=== PATIENT | male | born 1995 | race Two or more races ===

== ENCOUNTER 2023-10-01 10:24 | Emergency (ER) | payer OTHER, SELFPAY ==
--- NOTE | ~2023-10-01 | CT_ITS ---
EXAMINATION: CT ABDOMEN AND PELVIS WITH CONTRAST CLINICAL INFORMATION: Lower abdominal pain COMPARISON: None available. TECHNIQUE: Multidetector volumetric images were obtained from the superior aspect of the liver through the pubic symphysis following administration 85 mL of Omnipaque 350 intravenous contrast. Sagittal and coronal reformatted images were obtained on the technologist's workstation. Oral contrast: No This CT examination was performed using dose optimization techniques as appropriate, variously including the following: *Automated exposure control *Adjustment of mA and/or kV according to patient size (this includes techniques or standardized protocols for targeted exams where dose is matched to indication/reason for exam; i.e. extremities or head) *Use of iterative reconstruction technique DLP: 882 mGy-cm FINDINGS: LUNG BASES: The visualized lung bases are unremarkable. LIVER, GALLBLADDER, AND BILIARY TREE: The liver is normal in size, shape, and attenuation. No focal hepatic lesion or biliary ductal dilatation is present. The gallbladder is unremarkable with no evidence of radiopaque gallstones, gallbladder wall thickening, or obvious pericholecystic inflammatory changes. PANCREAS: Unremarkable. SPLEEN: Unremarkable. ADRENAL GLANDS: Unremarkable. KIDNEYS AND URETERS: The kidneys are normal in size, shape, and attenuation. No hydronephrosis, hydroureter, or calculi seen. No perinephric stranding. BLADDER: Unremarkable. GASTROINTESTINAL TRACT: There is scattered stool and gas seen throughout the colon without significant distention. There is nonspecific mild mural thickening involving the entire descending colon but no pericolic fat stranding., Question colitis. There is the small bowel loops are normal caliber. Appendix is normal caliber. The stomach is nondistended ABDOMINAL WALL: A small umbilical hernia containing fat is noted. LYMPH NODES: Normal. VASCULAR: Unremarkable. PELVIC VISCERA: The prostate is enlarged without encroachment on the base of the bladder. OSSEOUS STRUCTURES: Unremarkable. CT/CT abdomen pelvis w IV con IMPRESSION: 1. Nonspecific mild mural thickening involving the entire descending colon but no pericolic fat stranding of the setting or the sigmoid colon. Question early colitis.. There is 2. Small umbilical hernia containing fat. Fleischner guidelines were followed.
[2023-10-01 10:39] VITALS: BP 143/87; BP 150/84; PULSE 104; PULSE 110; RESP 20; TEMP 37.5; O2SAT 97; O2SAT 98; BMI 38.0
[2023-10-01 15:48] LABS: MANUAL DIFF FLAG NO
[2023-10-01 15:49] LABS: Basophils Absolute Auto 0.1 X10*3/uL (0.0-0.2); Basophils Percent Auto 0.4 % (0-2); Eosinophils Percent Auto 0.2 % (0-4); Hemoglobin 16.3 g/dl (14.0-18.0); Imm Gran Abs Auto 0.04 X10*3/uL (0.00-0.03); Imm Gran Pct Auto 0.3 % (0.0-0.4); Lymphocytes Absolute Auto 2.1 X10*3/uL (1.2-4.9); Lymphocytes Percent Auto 16.6 % (20-40); Mean Corpuscular HGB Conc 33.3 g/dl (31.0-36.0); Mean Corpuscular Hemoglobin 26.6 pg (27.0-33.0); Mean Corpuscular Volume 79.9 fL (80.0-98.0); Mean Platelet Volume 9.5 fL (9.4-12.4); Monocytes Absolute Auto 0.5 X10*3/uL (0.1-1.2); Monocytes Percent Auto 4.1 % (2-11); Neutrophils Percent Auto 78.4 % (45-73); Platelet Count 513 X10*3/uL (160-400); Red Blood Count 6.13 X10*6/uL (4.60-5.80); Red Cell Distribution Width 13.2 % (11.0-16.0); White Blood Count 12.7 X10*3/uL (4.8-10.8)
[2023-10-01 16:04] LABS: Alanine Aminotransferase 21 U/L (0-40); Albumin Level 4.9 g/dL (3.5-5.0); Alkaline Phosphatase 90 U/L (39-117); Anion Gap 19 (12-20); Aspartate Amino Transferase 15 U/L (5-37); Bilirubin Direct 0.2 mg/dL (0.0-0.5); Bilirubin Total 0.6 mg/dL (0.0-1.0); Blood Urea Nitrogen 10 mg/dL (9-16); Calcium 10.2 mg/dL (8.4-10.2); Carbon Dioxide 22 mmol/L (22-29); Chloride 104 mmol/L (96-108); Creatinine Clr Calc Pharmacy 124.3; Estimated Glomerular Filt Rate > 60; Glucose Random 128 mg/dL (60-115); Lipase 14 U/L (8-78); Magnesium 1.9 mg/dL (1.6-2.6); Potassium 3.5 mmol/L (3.3-5.1); Sodium 141 mmol/L (135-145); Total Protein 8.8 g/dL (6.5-8.0)
[2023-10-01 19:38] VITALS: PULSE 89; RESP 16; O2SAT 99
[2023-10-01 20:02] VITALS: BP 153/93; PULSE 107; RESP 16; O2SAT 95
--- NOTE | 2023-10-01 20:03 | PC.NURSE ---
PA student @ bedside
--- NOTE | 2023-10-01 20:24 | ED.GENADULT ---
HPI - General Adult General Chief complaint: Abdominal Pain Stated complaint: LOW ABD/BACK PAIN PER EMS Time Seen by Provider: 10/01/23 19:58 Source: patient, RN notes reviewed and old records reviewed Mode of arrival: ambulatory Limitations: no limitations History of Present Illness HPI narrative: 27-year-old male with past medical history significant for ulcerative colitis presents for evaluation of abdominal and pelvic pain. Patient reports he is the pain on and off for 3 years He states the pain is also worse ?when I get an erection. ? He reports his pain is lower abdomen that radiates to his rectum and pelvis Currently he is still experiencing the pain which is 8/10 He states he can have the pain 1 day and then it comes back a few months later He denies any testicular swelling, rashes or urethral discharge He reports that he is sexually active Patient reports that he was diagnosed with ulcerative colitis but has not seen a GI doctor in the last 10 years He reports that he had previously been on Humira but stopped taking in 2014 because ?I was doing well so I did not think I needed it anymore. ? Denies any fevers or chills Denies any rectal bleeding Related Data Previous Rx's Medication Instructions Recorded amoxicillin 875 mg-potassium 1 tab PO BID #14 tabs 10/01/23 clavulanate 125 mg tablet prednisone 20 mg tablet 40 mg (2 x 20 mg) PO DAILY #10 tabs 10/01/23 Allergies Allergy/AdvReac Type Severity Reaction Status Date / Time merida [cherries] AdvReac Gastrointestinal Verified 10/01/23 20:07 Upset Review of Systems Constitutional: Constitutional: Denies chills and Denies fever(s) Eyes: Eyes: Denies blurry vision Cardiovascular: Cardiovascular: Denies chest pain and Denies dyspnea Respiratory: Respiratory: Denies cough and Denies dyspnea Gastrointestinal: Gastrointestinal: Reports abdominal pain, Reports GI cramping, Denies nausea and Denies vomiting Genitourinary: Genitourinary: Reports genital pain, Denies dysuria, Denies penile discharge, Denies testicular mass and Reports testicular pain Musculoskeletal: Musculoskeletal: Denies back pain Integumentary/Breasts: Skin/Breast: Denies rash PMFSH Social History Social History Smoked in Last 30 Days: No Use of substances other than those prescribed or required for medical reasons: Yes Substance Use Type: Marijuana Substance Use Frequency: Daily Advance Directives: No Advance Directives Information Provided: No Physical Exam ED Vital Signs: Vital Signs - 24 hr 10/01/23 10:39 10/01/23 19:38 10/01/23 20:02 Temperature 99.5 F Pulse Rate 110 H 89 107 H Respiratory Rate 20 16 16 Blood Pressure 143/87 H 153/93 H Pulse Oximetry 97 99 95 Oxygen Delivery Method Room Air Room Air Room Air 10/01/23 22:00 10/01/23 22:23 Temperature Pulse Rate 91 69 Respiratory Rate 16 18 Blood Pressure 127/77 129/78 Pulse Oximetry 99 Oxygen Delivery Method Room Air BMI result Body Mass Index 38.0 Const General: healthy appearing, comfortable, no acute distress, alert and awake Nutritional Appearance: well nourished Orientation/consciousness: patient oriented x3 HENMT Head: Yes normocephalic and Yes atraumatic Eyes Eyelids: Yes eyelids normal Conjunctivae: conjunctivae normal Sclerae: sclerae normal Corneas: corneas normal Pupils: Equal, round and reactive pupils present EOM: EOMs intact bilaterally Neck Neck: Yes full ROM Resp Effort & Inspection: normal respiratory effort, able to speak in complete sentences and not labored GI Inspection: No distended Palpation (GI): Soft to palpation, not firm, Tenderness to palpation present (GI) (Diffusely tender to lower abdomen and suprapelvic region.), no guarding and not rigid Auscultation: normoactive bowel sounds Male General Exam: Yes normal external exam, No ecchymosis, No edema, No erythema, No hernia, No inguinal lymphadenopathy, No lacerations and No Genital lesions present Penis: uncircumcised, no ecchymosis, not edematous, no swelling and No Genital lesions present Meatus: no meatla discharge Scrotum: not edematous Skin General skin exam: elasticity normal Neuro General: patient oriented x3 Cranial nerves: Yes Equal, round and reactive pupils present and Yes Bilaterally intact EOM present Cognition (Neuro): normal cognition Extrem Other: Moving all extremities well without any obvious deformities Course Reevaluation(s) Reevaluation #1: Patient's CT scan shows mild colitis. This is most likely related to ulcerative colitis, however he has not had a diagnosed flare in over 10 years. There is some concern that he could have a bacterial colitis, we will treat with both prednisone and Augmentin and he will be referred to GI for further evaluation and management Time: 23:04 Medications Administered Discontinued Medications Generic Name Dose Route Start Last Admin Trade Name Saba PRN Reason Stop Dose Admin Sodium Chloride 1,000 mls @ 999 mls/hr 10/01/23 20:30 10/01/23 21:40 Ns IV 10/01/23 21:30 Infused .Q1H1M YADIRA Infusion Iohexol 100 ml 10/01/23 21:15 10/01/23 21:15 Iohexol 350 Mg/Ml 100 Ml Infus..Btl IV 10/01/23 21:16 85 ml ONCE ONE Administration Ketorolac Tromethamine 30 mg 10/01/23 20:24 10/01/23 20:36 Ketorolac Tromethamine 30 Mg/Ml Vial IVPUSH 10/01/23 20:25 30 mg ONCE ONE Administration Medical Decision Making Medical Decision Making [facility] Narrative: Patient reports a diagnosed history of ulcer colitis but is not currently on any preventative medication. He reports he has not been on Humira for the last 8 years and does not currently follow with GI. His symptoms have been going on and off for 3 years. This makes testicular torsion much less likely. His pain is mostly in the suprapubic region as well. Plan for CT scan the abdomen pelvis to rule out acute appendicitis however I feel this is less likely given the history of ulcerative colitis. Differential Diagnosis Differential Diagnoses: The differential diagnosis associated with the presentation includes Ulcerative colitis Acute appendicitis Gonorrhea Chlamydia Lab Data [facility] Lab Attestation statement: I reviewed the patient's lab results. Mild leukocytosis with a slight left shift. No significant anemia. No electrolyte abnormalities. 10/01/23 15:39 10/01/23 15:39 Labs: Lab Results 10/01/23 10/01/23 Range/Units 15:39 22:29 WBC 12.7 H (4.8-10.8) X10*3/uL RBC 6.13 H (4.60-5.80) X10*6/uL Hgb 16.3 (14.0-18.0) g/dl Hct 49.0 (42.0-52.0) % MCV 79.9 L (80.0-98.0) fL MCH 26.6 L (27.0-33.0) pg MCHC 33.3 (31.0-36.0) g/dl RDW 13.2 (11.0-16.0) % Plt Count 513 H (160-400) X10*3/uL MPV 9.5 (9.4-12.4) fL Immature Gran % (Auto) 0.3 (0.0-0.4) % Neut % (Auto) 78.4 H (45-73) % Lymph % (Auto) 16.6 L (20-40) % Knott % (Auto) 4.1 (2-11) % Eos % (Auto) 0.2 (0-4) % Baso % (Auto) 0.4 (0-2) % Lymph # (Auto) 2.1 (1.2-4.9) X10*3/uL Knott # (Auto) 0.5 (0.1-1.2) X10*3/uL Eos # (Auto) 0.0 (0.0-0.4) X10*3/uL Baso # (Auto) 0.1 (0.0-0.2) X10*3/uL Abs Immat Gran (auto) 0.04 H (0.00-0.03) X10*3/uL Absolute Neuts (auto) 10.0 H (2.0-8.3) x10*3/uL Absolute Nucleated RBC 0.000 (0.0-0.012) X10*3/uL Nucleated RBC % (auto) 0.0 (0.0-0.2) /100WBC Sodium 141 (135-145) mmol/L Potassium 3.5 (3.3-5.1) mmol/L Chloride 104 (96-108) mmol/L Carbon Dioxide 22 (22-29) mmol/L Anion Gap 19 (12-20) BUN 10 (9-16) mg/dL Creatinine 1.10 (0.5-1.4) mg/dL Estim Creat Clear Calc 124.3 Estimated GFR > 60 Random Glucose 128 H (60-115) mg/dL Calcium 10.2 (8.4-10.2) mg/dL Magnesium 1.9 (1.6-2.6) mg/dL Total Bilirubin 0.6 (0.0-1.0) mg/dL Direct Bilirubin 0.2 (0.0-0.5) mg/dL AST 15 (5-37) U/L ALT 21 (0-40) U/L Alkaline Phosphatase 90 (39-117) U/L Total Protein 8.8 H (6.5-8.0) g/dL Albumin 4.9 (3.5-5.0) g/dL Lipase 14 (8-78) U/L Urine Color Yellow Urine Appearance Clear Urine pH 6.0 (5.0-9.0) Ur Specific Blue 1.010 (1.005-1.025) Urine Protein Negative (Neg-Trace) mg/dL Urine Glucose (UA) Negative (Negative) mg/dL Urine Ketones Negative (Negative) mg/dL Urine Blood Negative (Negative) Urine Nitrite Negative (Negative) Ur Leukocyte Esterase Negative (Negative) Discharge Plan Discharge Clinical Impression: Colitis Patient Disposition: Home, Self-Care Instructions: Colitis (ED) Additional Instructions: Your workup was significant for colitis on CT scan. This is most likely inflammatory related to ulcerative colitis However we will give you both steroids and antibiotics to treat any infectious process as well It is important that you follow-up with GI. You may call the office of Dr. Mike at the number provided He should be able to help you manage her ulcerative colitis going for Prescriptions: New prednisone 20 mg tablet 40 mg PO DAILY Qty: 10 0RF amoxicillin-pot clavulanate 875-125 mg tablet 1 tab PO BID Qty: 14 0RF
[2023-10-01] MEDS: 0.9 % Sodium Chloride 1,000 ML 999 ML IV (20:36)
[2023-10-01] MEDS: Ketorolac Tromethamine 30 MG/ML VIAL IVPUSH (20:36)
[2023-10-01] MEDS: iohexoL 350 MG/ML 100 ML INFUS..BTL IV (21:15)
[2023-10-01 22:00] VITALS: BP 127/77; PULSE 91; RESP 16
--- NOTE | 2023-10-01 22:13 | PC.NURSE ---
Pt layin in bed, in no apparent distress at this time. Reports 0/10 pain. Mother at bedside. Awaiting CT results.
[2023-10-01 22:23] VITALS: BP 129/78; PULSE 69; RESP 18; O2SAT 99
[2023-10-01 22:44] LABS: Appearance Urine Clear; Color Urine Yellow; Glucose Urine UA Negative (Negative); Leukocyte Esterase Urine Negative (Negative); Nitrite Urine Negative (Negative); Urine Blood Negative (Negative); Urine Ketones Negative (Negative); Urine Protein Negative (Neg-Trace)
[2023-10-02 04:51] LABS: CT PCR NOT DETECTED (Not Detect.); NG PCR NOT DETECTED (Not Detect.)
== END 2023-10-01 23:54 | disposition home or self-care (01) ==
PROVIDERS: Physician Assistant; Physician Assistant Medical; Emergency Provider Internal Medicine
DX: K52.9 Noninfective gastroenteritis and colitis, unspecified (principal); M54.50 Low back pain, unspecified; N48.89 Other specified disorders of penis; R10.30 Lower abdominal pain, unspecified; Z79.899 Other long term (current) drug therapy
CPT/HCPCS: 0353U; 36415; 74177; 80048; 80076; 81003; 83690; 83735; 85025; 96361; 96374; 99284; 99285; J1885; Q9967

== ENCOUNTER 2023-10-09 04:07 | Emergency (ER) | payer MEDICAID, SELFPAY ==
--- NOTE | ~2023-10-09 | CT_ITS ---
EXAMINATION: CT ABDOMEN AND PELVIS WITH CONTRAST CLINICAL INFORMATION: Lower abdominal discomfort. History of ulcerative colitis. COMPARISON: 10/01/2023 TECHNIQUE: Multidetector volumetric images were obtained from the superior aspect of the liver through the pubic symphysis following administration 100 mL of Omnipaque 350 intravenous contrast. Sagittal and coronal reformatted images were obtained on the technologist's workstation. Oral contrast: No This CT examination was performed using dose optimization techniques as appropriate, variously including the following: *Automated exposure control *Adjustment of mA and/or kV according to patient size (this includes techniques or standardized protocols for targeted exams where dose is matched to indication/reason for exam; i.e. extremities or head) *Use of iterative reconstruction technique DLP: 926 mGy-cm FINDINGS: Linear and curvilinear subpleural opacities of atelectasis in dependent aspect of each lower lobe. No basilar consolidation or pleural effusion. Liver has normal size and contour. No focal hepatic lesion or intrahepatic duct dilatation. Gallbladder is unremarkable. Pancreas and spleen are normal. Adrenal glands are normal. Kidneys are normal in size and opacify symmetrically. No renal mass, hydronephrosis or perinephric edema. There has been excretion of contrast into the nondilated collecting systems. No overt nephrolithiasis. The ureters are unremarkable. Urinary bladder is normal. No dilated bowel loops. The appendix is normal. The thickness of bowel ryan appears to be commensurate with the degree of their distention. Those segments of the colon that are better distended with gas have normal wall thickness. Therefore, there is no overt evidence of acute colitis. There is persistent minimal haziness of some of the fat in the left lower pelvis adjacent to the distal sigmoid colon; this could represent minimal inflammation from epiploic appendicitis. There is no fluid collection/abscess in the pelvis. Prostate gland is unremarkable There is subarticular sclerosis at the left sacroiliac joint with presence of a few subchondral cysts and/or old erosions. An asymmetric left-sided sacroiliitis could cause this appearance. Otherwise, the visualized bones are normal. CT/CT abdomen pelvis w IV con IMPRESSION: * No evidence of enteritis, overt colitis or appendicitis. The thickness of bowel ryan appears to be commensurate with the degree of their distention. * An area of minimal haziness of fat in the left lower pelvis is suspected to be from epiploic appendicitis. * No pelvic fluid collection, mass or lymphadenopathy. * Findings suggestive of a mild asymmetric left-sided sacroiliitis, which can occur in patients with a history of inflammatory bowel disease.
[2023-10-09 04:08] VITALS: BP 141/73; BP 180/118; PULSE 102; PULSE 94; RESP 18; TEMP 36.9; O2SAT 100; BMI 37.9
--- NOTE | 2023-10-09 04:32 | ED.ABDPAIN ---
HPI - Abdominal Pain General Chief Complaint: Abdominal Pain Stated Complaint: lower abd/groin pain Time Seen by Provider: 10/09/23 04:11 Source: patient Mode of arrival: EMS History of Present Illness HPI narrative: 27-year-old male who completed a course of antibiotics for 1 week and was last seen here on 10/01, has made no PCP or GI appointments and states that the pain has resumed and he describes a similar pain pattern as documented on his 1st visit with pain going from his rectum to his penis he denies any diarrhea or blood in the stool, denies any fevers or chills. Related Data Previous Rx's Medication Instructions Recorded amoxicillin 875 mg-potassium 1 tab PO BID #14 tabs 10/01/23 clavulanate 125 mg tablet prednisone 20 mg tablet 40 mg (2 x 20 mg) PO DAILY #10 tabs 10/01/23 Allergies Allergy/AdvReac Type Severity Reaction Status Date / Time merida [cherries] AdvReac Gastrointestinal Verified 10/01/23 20:07 Upset Review of Systems Review of Systems Pertinent positives and negatives as stated in HPI PMFSH Past Medical History Source: nursing notes reviewed Onset Date is defined in the Problem List Problems that require an onset date and time if occurred within 24 hrs of arrival to the ED Aortic Dissection and Rupture; Neurologic impairment; Cardiopulmonary Arrest; Endotracheal Intubation; Insertion or Replacement of Mechanical Circulatory Assist Device Social History Social History Smoked in Last 30 Days: No Use of substances other than those prescribed or required for medical reasons: Yes Substance Use Type: Marijuana Substance Use Frequency: Daily Substance Use Frequency Other:: daily Last Used Substance: Days (ago) Advance Directives: No Advance Directives Information Provided: Yes Physical Exam ED Vital Signs: Vital Signs - 24 hr 10/09/23 04:08 Temperature 98.5 F Pulse Rate 94 Respiratory Rate 18 Blood Pressure 141/73 H Pulse Oximetry 100 Oxygen Delivery Method Room Air BMI result Body Mass Index 37.9 VITAL SIGNS: Reviewed. GENERAL: Well developed, well nourished, in no acute distress. HEAD: Normocephalic/atraumatic EYES: PERRLA, EOMI EARS: Ext canals without abnormality NOSE: Nares patent bilateral OROPHARYNX: no oral lesions noted, posterior pharynx clear NECK: Supple, no adenopathy LUNGS: Normal breath sounds. No adventitious sounds or accessory muscle use. SpO2<100> CARDIOVASCULAR: Regular rate and rhythm without noted murmurs ABDOMEN: Soft, non-tender, non-distended with bowel sounds. MUSCULOSKELETAL: No tenderness, deformities, or effusions noted on gross inspection. EXTREMITIES: No cyanosis, clubbing or edema. SKIN: Inspection of the skin reveals no rashes NEUROLOGIC: Alert and oriented x 4. Strength and sensation to light touch were grossly intact x 4. Medical Decision Making Medical Decision Making [facility] Narrative: 27-year-old male with history and clinical presentation, DDX: Colitis, constipation, UTI, renal colic. Patient received Toradol. Reviewed all investigations and hematologic indices are negative for leukocytosis or left shift there is no anemia but there is a noted improved elevation of the platelets. Chemistry indices do not demonstrate an WHITNEY or electrolyte/liver enzyme derangement. Lipase is within normal limits. COVID-19 testing is negative. Signed out to Dr Mares - f/u ESR/CRP - CT scan abd/pelvis Differential Diagnosis Differential Diagnoses: The differential diagnosis associated with the presentation includes Please see the discussion above Admission/Observation Consideration of admission/observation: Escalation of care including admission/observation considered Please see the discussion above Lab Data [facility] Lab Attestation statement: I reviewed the patient's lab results. Please see the discussion above 10/09/23 04:31 10/09/23 04:31 Labs: Lab Results 10/09/23 Range/Units 04:31 WBC 8.2 (4.8-10.8) X10*3/uL RBC 5.65 (4.60-5.80) X10*6/uL Hgb 15.0 (14.0-18.0) g/dl Hct 45.0 (42.0-52.0) % MCV 79.6 L (80.0-98.0) fL MCH 26.5 L (27.0-33.0) pg MCHC 33.3 (31.0-36.0) g/dl RDW 13.0 (11.0-16.0) % Plt Count 410 H (160-400) X10*3/uL MPV 9.5 (9.4-12.4) fL Immature Gran % (Auto) 0.4 (0.0-0.4) % Neut % (Auto) 67.4 (45-73) % Lymph % (Auto) 20.9 (20-40) % Calloway % (Auto) 6.4 (2-11) % Eos % (Auto) 4.4 H (0-4) % Baso % (Auto) 0.5 (0-2) % Lymph # (Auto) 1.7 (1.2-4.9) X10*3/uL Calloway # (Auto) 0.5 (0.1-1.2) X10*3/uL Eos # (Auto) 0.4 (0.0-0.4) X10*3/uL Baso # (Auto) 0.0 (0.0-0.2) X10*3/uL Abs Immat Gran (auto) 0.03 (0.00-0.03) X10*3/uL Absolute Neuts (auto) 5.5 (2.0-8.3) x10*3/uL Absolute Nucleated RBC 0.000 (0.0-0.012) X10*3/uL Nucleated RBC % (auto) 0.0 (0.0-0.2) /100WBC Sodium 142 (135-145) mmol/L Potassium 3.3 (3.3-5.1) mmol/L Chloride 105 (96-108) mmol/L Carbon Dioxide 27 (22-29) mmol/L Anion Gap 13 (12-20) BUN 13 (9-16) mg/dL Creatinine 0.93 (0.5-1.4) mg/dL Estim Creat Clear Calc 146.8 Estimated GFR > 60 Random Glucose 108 (60-115) mg/dL Calcium 9.6 (8.4-10.2) mg/dL Total Bilirubin 0.5 (0.0-1.0) mg/dL AST 17 (5-37) U/L ALT 26 (0-40) U/L Alkaline Phosphatase 66 (39-117) U/L Total Protein 7.8 (6.5-8.0) g/dL Albumin 4.4 (3.5-5.0) g/dL Lipase 20 (8-78) U/L COVID-19 (ZANDRA) Negative (Negative) COVID-19 Clin Com See Note Medications Administered Discontinued Medications Generic Name Dose Route Start Last Admin Trade Name Freq PRN Reason Stop Dose Admin Ketorolac Tromethamine 15 mg 10/09/23 05:54 10/09/23 06:00 Ketorolac Tromethamine 30 Mg/Ml Vial IVPUSH 10/09/23 05:55 15 mg ONCE ONE Administration Discharge Plan Discharge Clinical Impression: Abdominal pain Patient Disposition: Still a Patient Prescriptions: No Action prednisone 20 mg tablet 40 mg PO DAILY Qty: 10 0RF amoxicillin-pot clavulanate 875-125 mg tablet 1 tab PO BID Qty: 14 0RF
[2023-10-09 04:34] LABS: MANUAL DIFF FLAG NO
[2023-10-09 04:35] LABS: Basophils Percent Auto 0.5 % (0-2); Eosinophils Absolute Auto 0.4 X10*3/uL (0.0-0.4); Eosinophils Percent Auto 4.4 % (0-4); Imm Gran Abs Auto 0.03 X10*3/uL (0.00-0.03); Imm Gran Pct Auto 0.4 % (0.0-0.4); Lymphocytes Absolute Auto 1.7 X10*3/uL (1.2-4.9); Lymphocytes Percent Auto 20.9 % (20-40); Mean Corpuscular HGB Conc 33.3 g/dl (31.0-36.0); Mean Corpuscular Hemoglobin 26.5 pg (27.0-33.0); Mean Corpuscular Volume 79.6 fL (80.0-98.0); Mean Platelet Volume 9.5 fL (9.4-12.4); Monocytes Absolute Auto 0.5 X10*3/uL (0.1-1.2); Monocytes Percent Auto 6.4 % (2-11); Neutrophils Absolute Auto 5.5 x10*3/uL (2.0-8.3); Neutrophils Percent Auto 67.4 % (45-73); Platelet Count 410 X10*3/uL (160-400); Red Blood Count 5.65 X10*6/uL (4.60-5.80); White Blood Count 8.2 X10*3/uL (4.8-10.8)
--- NOTE | 2023-10-09 04:41 | PC.NURSE ---
Patient BIBA from home for evaluation of right lower abdominal/groin pain 06/27, patient reports recent visit here at ED for Exacerbations of Colitis, patient was discharged home on oral Amoxicillin and Prednisone. Patient denies nausea/vomiting/diarrhea. Dr. Alba at bedside. 20 G IV line placed into left forearm. Labs drawn and sent to lab for processing. Patient oriented to ED room, call winters placed within patient's reach.
[2023-10-09 04:51] LABS: Alanine Aminotransferase 26 U/L (0-40); Albumin Level 4.4 g/dL (3.5-5.0); Alkaline Phosphatase 66 U/L (39-117); Anion Gap 13 (12-20); Aspartate Amino Transferase 17 U/L (5-37); Bilirubin Total 0.5 mg/dL (0.0-1.0); Blood Urea Nitrogen 13 mg/dL (9-16); Calcium 9.6 mg/dL (8.4-10.2); Carbon Dioxide 27 mmol/L (22-29); Chloride 105 mmol/L (96-108); Creatinine Clr Calc Pharmacy 146.8; Estimated Glomerular Filt Rate > 60; Glucose Random 108 mg/dL (60-115); Lipase 20 U/L (8-78); Potassium 3.3 mmol/L (3.3-5.1); Sodium 142 mmol/L (135-145); Total Protein 7.8 g/dL (6.5-8.0)
[2023-10-09 04:57] LABS: COVID-19 Test Negative (Negative); IDNOW Serial# 152EDE1D
[2023-10-09] MEDS: Ketorolac Tromethamine 30 MG/ML VIAL 15 MG IVPUSH (06:00)
--- NOTE | 2023-10-09 06:05 | PC.NURSE ---
Patient medicated with Toradol 15 mg IV push for severe abdominal pain in right abdomen/groin/anus. Patient's mother at bedside, call winters at patient's reach.
[2023-10-09] MEDS: iohexoL 350 MG/ML 100 ML INFUS..BTL IV (06:25)
[2023-10-09 06:36] LABS: C Reactive Protein 0.57 mg/dL (< or = 0.50)
[2023-10-09 07:14] LABS: Appearance Urine Clear; Color Urine Yellow; Glucose Urine UA Negative (Negative); Leukocyte Esterase Urine Negative (Negative); Nitrite Urine Negative (Negative); PH 6.5 (5.0-9.0); Specific Gravity - Urine >= 1.030 (1.005-1.025); Urine Blood Negative (Negative); Urine Ketones 15 mg/dL (Negative); Urine Protein Negative (Neg-Trace)
[2023-10-09 07:19] LABS: Erythrocyte Sedimentation Rate 6 MM/HR (0-15)
--- NOTE | 2023-10-09 07:20 | PC.NURSE ---
Resumed care of patient, UA sent to lab. Mom remains at bedside. Awaiting CT results at this time for dispo
== END 2023-10-09 09:43 | disposition home or self-care (01) ==
PROVIDERS: Student in an Organized Health Care Education/Training Program; Emergency Provider Emergency Medicine
DX: R10.30 Lower abdominal pain, unspecified (principal); Z11.52 Encounter for screening for COVID-19
CPT/HCPCS: 36415; 74177; 80053; 81003; 83690; 85025; 85652; 86140; 87635; 96374; 99284; 99285; J1885; Q9967

== ENCOUNTER 2023-10-11 16:57 | Inpatient (IN) | payer OTHER, SELFPAY ==
--- NOTE | ~2023-10-11 | MR_ITS ---
EXAMINATION: MRI PELVIS WITH AND WITHOUT CONTRAST CLINICAL INFORMATION: Reason for Exam rectal pain COMPARISON: CT abdomen and pelvis 10/09/2023 TECHNIQUE: Multiple routine MRI sequences through the pelvis were obtained on a high-field 1.5 Katie MRI before and after the uneventful administration of 10 mL of Gadavist gadolinium-based IV contrast. FINDINGS: SOFT TISSUES: Unremarkable. GI TRACT: Unremarkable. No perirectal or perianal abscess. No evidence of fistula. The previously seen subtle fat stranding in the pelvis abutting the rectosigmoid colon suggestive of epiploic appendicitis was no longer definitively discerned and may be intervally resolved or suboptimally evaluated given differences in modality. PROSTATE AND SEMINAL VESICLES: Unremarkable BLADDER: Urinary bladder normal. PELVIC FREE FLUID: Trace free fluid in the pelvis. VASCULATURE: Unremarkable. LYMPH NODES: No pathologically enlarged lymph nodes. OSSEOUS STRUCTURES: Again seen asymmetric sclerosis along the left sacroiliac joint which can be seen in the setting of sacroiliitis. MR/MR pelvis wo/w con IMPRESSION: 1. No perirectal or perianal abscess. No evidence of fistula. The previously seen subtle fat stranding in the pelvis abutting the rectosigmoid colon suggestive of epiploic appendicitis was no longer definitively discerned and may be intervally resolved or suboptimally evaluated given differences in modality. 2. Again seen asymmetric sclerosis along the left sacroiliac joint which can be seen in the setting of sacroiliitis.
[2023-10-11 17:08] VITALS: BP 139/79; BP 162/84; PULSE 108; PULSE 109; RESP 18; TEMP 37.7; O2SAT 98; O2SAT 99; BMI 37.2
--- NOTE | 2023-10-11 17:08 | PC.NURSE ---
a&ox4. vss and up to date besides being tachycardic. pt presents to the ED after having constant abd pain/n/v x 2 weeks. pt was seen at [facility] [place]09 where he was dx w/ colitis. pt was then seen at [facility] on 10/10 where they d/c'd his morphine subscription. pt tearful/agitated d/t pain. no sob/wob noted. respirations even and unlabored. mother bedside. call winters placed within reach.
--- NOTE | 2023-10-11 17:48 | PC.NURSE ---
MILKA Choi and MILKA ratliff went into room to access patient. patient's mother became verbally aggressive towards [facility] staff stating she is refusing for her son to be cared for two people and only wants her son to be seen by MD in ED. pt's mother now upset that her son is not being seen at this time. pt remains tearful/in pain. respirations remain even and unlabored. call winters placed within reach.
--- NOTE | 2023-10-11 18:07 | ED.ABDPAIN ---
HPI - Abdominal Pain General Chief Complaint: Abdominal Pain Stated Complaint: ABD PAIN Time Seen by Provider: 10/11/23 17:06 Source: patient and family Mode of arrival: EMS Limitations: no limitations History of Present Illness HPI narrative: 27-year-old male with a history of ulcerative colitis who presents emergency department for evaluation of 2 weeks of abdominal pain. Patient states he feels the pain in his rectal area and in his lower abdomen. He states the pain is a constant, sharp pain with a tightness. He states the pain is 10/10. Patient has had associated nausea and has had 3-4 episodes of vomiting per day associated with his abdominal pain. Any time he tries to eat or drink he vomits. The patient states that he was diagnosed with ulcerative colitis when he was in high school and at that time his symptoms were diarrhea without abdominal pain. He states he was on Humira for approximately 4 years and since that time he has not seen a jigger operator. The patient was seen here in the emergency department on 10/01/2023. [place] [address]. He had a CT scan of the abdomen pelvis with IV contrast which revealed mild mural thickening of the descending colon. The patient was started on Augmentin 875/125 twice a day for 7 days and prednisone 40 mg once a day for 5 days with no improvement of his symptoms. The patient was seen again in the emergency department on 10/09/2023. He states that his pain did not resolved despite completing the antibiotics in the prednisone. The patient's laboratory evaluation from this visit revealed a normal WBC of 8200, CRP was 0.52 and ESR was 6. CT scan of the abdomen pelvis with IV contrast reading was as follows: FINDINGS: ... No dilated bowel loops. The appendix is normal. The thickness of bowel ryan appears to be commensurate with the degree of their distention. Those segments of the colon that are better distended with gas have normal wall thickness. Therefore, there is no overt evidence of acute colitis. There is persistent minimal haziness of some of the fat in the left lower pelvis adjacent to the distal sigmoid colon; this could represent minimal inflammation from epiploic appendicitis. There is no fluid collection/abscess in the pelvis. IMPRESSION: * No evidence of enteritis, overt colitis or appendicitis. The thickness of bowel ryan appears to be commensurate with the degree of their distention. * An area of minimal haziness of fat in the left lower pelvis is suspected to be from epiploic appendicitis. * No pelvic fluid collection, mass or lymphadenopathy. * Findings suggestive of a mild asymmetric left-sided sacroiliitis, which can occur in patients with a history of inflammatory bowel disease. Dictated By: Dilip Lawrence MD Related Data Previous Rx's Medication Instructions Recorded amoxicillin 875 mg-potassium 1 tab PO BID #14 tabs 10/01/23 clavulanate 125 mg tablet prednisone 20 mg tablet 40 mg (2 x 20 mg) PO DAILY #10 tabs 10/01/23 amoxicillin 875 mg-potassium 1 tab PO BID #14 tabs 10/09/23 clavulanate 125 mg tablet hyoscyamine sulfate 0.125 mg 0.25 mg (2 x 0.125 mg) PO QID PRN 10/09/23 tablet (Levsin) abdominal pain #10 tabs phenylephrine 0.25 %-shark maureen.oil 1 supp IN BID #12 ea 10/09/23 3 %-cocoa butter rectal suppository (Hemorrhoidal) Allergies Allergy/AdvReac Type Severity Reaction Status Date / Time merida [cherries] AdvReac Gastrointestinal Verified 10/11/23 17:08 Upset Review of Systems Review of Systems Yes all other systems are reviewed and are negative [facility] Past Medical History [facility] Narrative: Past medical history: Ulcerative colitis. Social history: Patient denies tobacco use. He denies alcohol use. He smokes 2-3 joints of marijuana daily. Social History Social History Smoked in Last 30 Days: No Use of substances other than those prescribed or required for medical reasons: No Substance Use Type: Marijuana Advance Directives: No Advance Directives Information Provided: No Physical Exam ED Vital Signs: Vital Signs - 24 hr 10/11/23 17:08 Temperature 99.8 F Pulse Rate 109 H Respiratory Rate 18 Blood Pressure 139/79 Pulse Oximetry 99 Oxygen Delivery Method Room Air BMI result Body Mass Index 37.2 Vital signs were normal Exam General: Awake, alert , patient is tear secondary to his abdominal pain Head: Normocephalic, atraumatic EENT: PERRL, Lids normal, sclera normal, conjunctiva normal, nose normal , ears normal, throat without erythema or exudates Neck: Supple, no adenopathy, no trachea midline or C-spine tenderness Lung: breath sounds symmetric, no wheezing, rales or rhonchi Chest: symmetric movement, nontender Heart: regular rate and rhythm, normal S1, S2 no murmurs or rubs Abdomen: Obese, patient has diffuse moderate to severe tenderness with significant voluntary guarding exam is limited secondary to the patient's pain Back: Patient has severe pain in his abdomen when he sits up and is unable to sit for a period of time to examine his back Extremities: no deformities, moves all extremities symmetrically Neuro: Awake, alert, oriented, normal speech, cranial nerves intact, moves all extremities symmetrically Psych: Pleasant, cooperative Medical Decision Making Medical Decision Making MDM Narrative: 27-year-old male with a history of ulcerative colitis diagnosed 10 years prior, completed 4 years of Humira but has not been seen by GI doctor since stopping Humira (initial presentation was diarrhea and not abdominal pain) who presents emergency department for evaluation of 2 weeks of constant, sharp, lower abdominal pain with pain in his rectal area. Patient has had no diarrhea but he has had 2-3 episodes of vomiting per day. The patient had 2 visits the emergency department here on 10/01/2023-diagnosed with colitis and treated with Augmentin x7 days and prednisone x4 days with no improvement of symptoms. Again seen here on 10/09/2023 for abdominal pain, repeat CT scan was not consistent with colitis but may have been consistent with left lower epiploic appendagitis and mild left sacroiliitis. Patient states he has had constant pain and was seen yesterday at [facility], he did not have a repeat CT scan of the abdomen but was treated with morphine and discharged home without narcotic pain medications. Patient's vital signs were normal. The patient appeared to to be in significant distress secondary to his abdominal pain and his abdominal exam was difficult since he had severe diffuse tenderness with significant anterior guarding. Following laboratory evaluation was ordered: CBC, CMP, ESR, CRP lipase, CK, PT/INR, PTT, COVID-19, influenza, cardiac monitoring, IV insertion, pulse ox monitoring Patient was treated with the following: Morphine 4 mg IV, Zofran 4 mg IV and normal saline x1 L Differential diagnosis includes but is not limited to cyclic vomiting syndrome, colitis, epiploic appendagitis, pancreatitis, ulcerative colitis 20:27 Patient got only minimal improvement with the above treatment, he was given a 2nd dose of morphine 4 mg IV and droperidol 1.25 mg IV. My interpretation patient's laboratory evaluation as follows: WBC elevated 14,000, H&H normal. ESR was normal at 7. Coags normal. Chemistries were normal. CRP was elevated at 1.24. LFTs and lipase were normal. COVID-19, influenza were negative. Given this workup I suspect that the patient's symptoms are more consistent with cyclic vomiting syndrome caused by marijuana use. Given the fact that this is his 4th ER visit, he has had 2 weeks of abdominal pain and not able to hold down any food or fluid I do not think that he can be sent home and that he should be admitted for further management of his symptoms until he can eat and drink without vomiting. Patient has only minimal improvement after the 1st dose of morphine. Patient had significant improvement after receiving morphine 4 mg and droperidol 1.25 mg IV which again suggests that the patient's symptoms may be secondary to cannabis hyperemesis/ cyclic vomiting syndrome I did discuss the patient's presentation over tiger text with the covering hospitalist. Differential Diagnosis Differential Diagnoses: The differential diagnosis associated with the presentation includes Admission/Observation Consideration of admission/observation: Escalation of care including admission/observation considered Lab Data MDM Lab Attestation statement: I reviewed the patient's lab results. 10/11/23 18:34 10/11/23 18:34 Labs: Lab Results 10/11/23 10/11/23 Range/Units 18:33 18:34 WBC 14.0 H (4.8-10.8) X10*3/uL RBC 5.24 (4.60-5.80) X10*6/uL Hgb 13.9 L (14.0-18.0) g/dl Hct 42.2 (42.0-52.0) % MCV 80.5 (80.0-98.0) fL MCH 26.5 L (27.0-33.0) pg MCHC 32.9 (31.0-36.0) g/dl RDW 13.5 (11.0-16.0) % Plt Count 391 (160-400) X10*3/uL MPV 10.0 (9.4-12.4) fL Immature Gran % (Auto) 0.9 H (0.0-0.4) % Neut % (Auto) 80.8 H (45-73) % Lymph % (Auto) 6.1 L (20-40) % [place] % (Auto) 8.7 (2-11) % Eos % (Auto) 3.0 (0-4) % Baso % (Auto) 0.5 (0-2) % Lymph # (Auto) 0.9 L (1.2-4.9) X10*3/uL [place] # (Auto) 1.2 (0.1-1.2) X10*3/uL Eos # (Auto) 0.4 (0.0-0.4) X10*3/uL Baso # (Auto) 0.1 (0.0-0.2) X10*3/uL Abs Immat Gran (auto) 0.12 H (0.00-0.03) X10*3/uL Absolute Neuts (auto) 11.3 H (2.0-8.3) x10*3/uL Absolute Nucleated RBC 0.000 (0.0-0.012) X10*3/uL Nucleated RBC % (auto) 0.0 (0.0-0.2) /100WBC ESR 7 (0-15) MM/HR PT 14.1 H (11.1-13.3) SEC INR 1.2 H (0.9-1.1) APTT 31.2 (26.0-36.4) SEC Sodium 141 (135-145) mmol/L Potassium 3.3 (3.3-5.1) mmol/L Chloride 105 (96-108) mmol/L Carbon Dioxide 25 (22-29) mmol/L Anion Gap 14 (12-20) BUN 10 (9-16) mg/dL Creatinine 0.89 (0.5-1.4) mg/dL Estim Creat Clear Calc 152.0 Estimated GFR > 60 Random Glucose 102 (60-115) mg/dL Calcium 9.8 (8.4-10.2) mg/dL Total Bilirubin 0.5 (0.0-1.0) mg/dL AST 19 (5-37) U/L ALT 24 (0-40) U/L Alkaline Phosphatase 67 (39-117) U/L Total Creatine Kinase 128 (38-174) U/L C-Reactive Protein 1.24 H (< or = 0.50) mg/dL Total Protein 7.2 (6.5-8.0) g/dL Albumin 4.3 (3.5-5.0) g/dL Lipase 9 (8-78) U/L COVID-19 (ZANDRA) Negative (Negative) COVID-19 Clin Com See Note Influenza Type A (RUI) Negative (Negative) Influenza Type B (RUI) Negative (Negative) Influenza A & B Note See Note Independent Historian Clinical information obtained from an independent historian. History obtained from or confirmed by: Parent Medications Administered Discontinued Medications Generic Name Dose Route Start Last Admin Trade Name Freq PRN Reason Stop Dose Admin Droperidol 1.25 mg 10/11/23 19:08 10/11/23 19:33 Droperidol 5 Mg/2 Ml Vial IVPUSH 10/11/23 19:09 1.25 mg ONCE ONE Administration Sodium Chloride 1,000 mls @ 999 mls/hr 10/11/23 18:08 10/11/23 18:34 Ns IV 10/11/23 19:08 999 mls/hr .Q1H1M STA Administration Morphine Sulfate 4 mg 10/11/23 18:08 10/11/23 18:34 Morphine Sulfate 4 Mg/Ml Cartridge IVPUSH 10/11/23 18:09 4 mg ONCE STA Administration Protocol Morphine Sulfate 4 mg 10/11/23 19:08 10/11/23 19:34 Morphine Sulfate 4 Mg/Ml Cartridge IVPUSH 10/11/23 19:09 4 mg ONCE STA Administration Protocol Ondansetron HCl 4 mg 10/11/23 18:08 10/11/23 18:34 Ondansetron Hcl 4 Mg/2 Ml Vial IVPUSH 10/11/23 18:09 4 mg ONCE ONE Administration Discharge Plan Discharge Prescriptions: No Action amoxicillin-pot clavulanate 875-125 mg tablet 1 tab PO BID Qty: 14 0RF hyoscyamine sulfate [Levsin] 0.125 mg tablet 0.25 mg PO QID PRN (Reason: abdominal pain) Qty: 10 0RF Hemorrhoidal 0.25-3 % suppository 1 supp IN BID Qty: 12 0RF prednisone 20 mg tablet 40 mg PO DAILY Qty: 10 0RF amoxicillin-pot clavulanate 875-125 mg tablet 1 tab PO BID Qty: 14 0RF
[2023-10-11] MEDS: ondansetron HCL 4 MG/2 ML VIAL IVPUSH (18:34)
[2023-10-11] MEDS: Morphine Sulfate 4 MG/ML CARTRIDGE IVPUSH ×3 (18:34→21:36)
[2023-10-11] MEDS: 0.9 % Sodium Chloride 1,000 ML 999 ML IV (18:34)
[2023-10-11 18:45] LABS: MANUAL DIFF FLAG NO
[2023-10-11 18:55] LABS: INTERNATIONAL NORM RATIO 1.2 (0.9-1.1); Prothrombin Time 14.1 SEC (11.1-13.3)
[2023-10-11 18:58] LABS: Partial Thromboplastin Time 31.2 SEC (26.0-36.4)
[2023-10-11 19:03] LABS: COVID-19 Test Negative (Negative); IDNOW Serial# 16C4AD1C; IDNOW Serial# 55D5AD1C; Influenza A Negative (Negative); Influenza B2 Negative (Negative)
[2023-10-11 19:05] LABS: Alanine Aminotransferase 24 U/L (0-40); Albumin Level 4.3 g/dL (3.5-5.0); Alkaline Phosphatase 67 U/L (39-117); Anion Gap 14 (12-20); Aspartate Amino Transferase 19 U/L (5-37); Bilirubin Total 0.5 mg/dL (0.0-1.0); Blood Urea Nitrogen 10 mg/dL (9-16); C Reactive Protein 1.24 mg/dL (< or = 0.50); Calcium 9.8 mg/dL (8.4-10.2); Carbon Dioxide 25 mmol/L (22-29); Chloride 105 mmol/L (96-108); Estimated Glomerular Filt Rate > 60; Glucose Random 102 mg/dL (60-115); Lipase 9 U/L (8-78); Potassium 3.3 mmol/L (3.3-5.1); Sodium 141 mmol/L (135-145); Total Protein 7.2 g/dL (6.5-8.0)
[2023-10-11 19:12] LABS: Basophils Absolute Auto 0.1 X10*3/uL (0.0-0.2); Basophils Percent Auto 0.5 % (0-2); Eosinophils Absolute Auto 0.4 X10*3/uL (0.0-0.4); Hematocrit 42.2 % (42.0-52.0); Hemoglobin 13.9 g/dl (14.0-18.0); Imm Gran Abs Auto 0.12 X10*3/uL (0.00-0.03); Imm Gran Pct Auto 0.9 % (0.0-0.4); Lymphocytes Absolute Auto 0.9 X10*3/uL (1.2-4.9); Lymphocytes Percent Auto 6.1 % (20-40); Mean Corpuscular HGB Conc 32.9 g/dl (31.0-36.0); Mean Corpuscular Hemoglobin 26.5 pg (27.0-33.0); Mean Corpuscular Volume 80.5 fL (80.0-98.0); Monocytes Absolute Auto 1.2 X10*3/uL (0.1-1.2); Monocytes Percent Auto 8.7 % (2-11); Neutrophils Absolute Auto 11.3 x10*3/uL (2.0-8.3); Neutrophils Percent Auto 80.8 % (45-73); Platelet Count 391 X10*3/uL (160-400); Red Blood Count 5.24 X10*6/uL (4.60-5.80); Red Cell Distribution Width 13.5 % (11.0-16.0)
[2023-10-11] MEDS: droPERidol 5 MG/2 ML VIAL 1.25 MG IVPUSH ×2 (19:33→23:56)
[2023-10-11 19:40] LABS: Erythrocyte Sedimentation Rate 7 MM/HR (0-15)
[2023-10-11 20:43] VITALS: BP 126/59; PULSE 97; RESP 18; TEMP 36.8; O2SAT 99
--- NOTE | 2023-10-11 21:40 | PHA.MEDREC ---
Pharmacy Consult ? Medication Reconciliation Pharmacy has completed the medication reconciliation.Patients mother confirmed medications. Could not tell me how many days left of scripts. Patient potentially stopped antibiotic early believing it wasn't working. Unable to confirm. Jelena Joe CPhT
[2023-10-11 21:51] LABS: Appearance Urine Clear; Color Urine Yellow; Glucose Urine UA Negative (Negative); Leukocyte Esterase Urine Negative (Negative); Nitrite Urine Negative (Negative); Specific Gravity - Urine 1.025 (1.005-1.025); Urine Blood Negative (Negative); Urine Ketones >=160 mg/dL (Negative); Urine Protein Trace mg/dL (Neg-Trace)
--- NOTE | 2023-10-11 22:03 | PC.NURSE ---
pt reporting 6/10 pain in thr abdomen at this time, pt medicated per nov.
[2023-10-11 22:11] LABS: Bacteria Urine None Seen (None Seen); Granular Casts Urine Present; RBC Urine 0-2 /HPF (0-2); WBC Urine 0-5 /HPF (0-5)
--- NOTE | 2023-10-11 22:21 | P.HPHOSP_ITS ---
History of Present Illness Date of Service: 10/11/23 Attending physician on admission: Danny Alford Chief Complaint: Abdominal pain, N/V CPatient has a history of ulcerative colitis that was diagnosed over 10 years ago when he was still in high school. Patient states that he was originally on Humira for a few years, though stopped taking it in 2013. Patient reports he used to get bloody diarrhea without abdominal pain when he had UC flares prior to being placed on Humira. Last flare was ?many years ago? while patient was in high school. Patient states that current symptoms began around his anus, and felt like there was class in his bowels or that he was being stabbed with knives. Pain eventually migrated to his scrotal and genital area and then up into his lower abdomen. Patient denies diarrhea, but states he has had small bowel movements during this time. Has not been eating much during this time given abdominal pain, though denies any nausea or vomiting until this morning when he had 2 episodes at work and another 2 episodes at home. Patient has presented multiple times in the past 10 days to the ED here and at [facility]. Patient initially presented on 10/01 at the ED here where CT of abdomen and pelvis on 10/01/2023 found nonspecific mild mural thickening involving the entire descending colon but with no pericolonic fat, question of early colitis. Patient was then discharged home on Augmentin and prednisone x7 days. Patient states he took medication as prescribed but had no relief of symptoms. He represented to the ED on 10/09 with similar symptoms and had repeat CT of abd/pelvis which showed no evidence of enteritis, overt colitis, or appendicitis. Reported the thickness of bowel ryan appears to be commensurate with the degree of their distention. Did find an area of minimal haziness of fat in the left lower pelvis suspected to be from epiploic appendagitis. Also found possible mild asymmetric left-sided sacroiliitis. Antibiotics were continued for an additional 7 days but symptoms persisted. Patient then presented to [facility] ED yesterday on 10/10 where they did not repeat a CT scan of his abdomen, but he was treated with morphine and then discharged home on NSAIDs. Abdominal pain persisted today, and when he developed nausea and vomiting x4 episodes patient re-presented to the emergency room. Patient has a history of marijuana use, stating he usually smokes 2 joints daily, though has not smoked for 4+ weeks since he has been out of money. In the ED pt was afebrile but tachycardic up to 109, with soft BP of 126/59. Labs were significant for leukocytosis of 14.0 and C-reactive protein of 1.24, otherwise grossly unremarkable. Stable H&H. ESR WNL at 7. Coags unremarkable. No electrolyte abnormalities. Renal and hepatic function WNL. UA negative for UTI. Tested negative for COVID and influenza type a and B. Pt was treated with IVF, morphine, ondansetron, and droperidol. Pt will be admitted to the hospital for treatment and further evaluation of intractable abdominal pain with nausea and vomiting likely secondary to epiploic appendagitis. Review of Systems 2 Review of Systems: Lower abdominal and gu pain x2 weeks nausea, vomiting x1 day Anorexia x2 weeks Denies diarrhea No chest pain/pressure, palpitations Denies shortness of breath Fever, chills, headache PMFSH Social History Smoked in Last 30 Days: No Use of substances other than those prescribed or required for medical reasons: No Substance Use Type: Marijuana Advance Directives: No Advance Directives Information Provided: No Meds Allergies Allergy/AdvReac Type Severity Reaction Status Date / Time merida [cherries] AdvReac Gastrointestinal Verified 10/11/23 17:08 Upset Home Medications Medication Instructions Recorded Confirmed Last Taken Type acetaminophen 325 mg tablet 650 mg PO Q4H PRN Pain 10/11/23 10/11/23 Unknown History ibuprofen 600 mg tablet 600 mg PO Q6H PRN Pain 10/11/23 10/11/23 Unknown History Physical Exam 2 Vital Signs and Narrative: Vital Signs: Last Vital Signs Temp 98.3 F 10/11/23 20:43 Pulse 97 10/11/23 20:43 Resp 18 10/11/23 20:43 BP 126/59 L 10/11/23 20:43 Pulse Ox 99 10/11/23 20:43 O2 Del Method Room Air 10/11/23 20:43 BMI result Body Mass Index 37.2 Constitutional: Alert, in no acute distress. Mental Status: Oriented to person, place and time. Eyes: Pupils are equal, round, and reactive to light. Ear, Nose, and Throat: Oropharynx clear, mucous membranes moist. Ears and nose without deformities. Trachea midline. Respiratory: Clear to auscultation bilaterally. No wheezing, rales, or rhonchi. Cardiovascular: S1, S2 regular. No murmurs, rubs, or gallops. Gastrointestinal: Abdomen soft, non-distended, diffuse lower abdominal tenderness. Normal bowel sounds. Neurologic: Cranial nerves II-XII are grossly intact bilaterally. No focal neurological deficits. Moves all extremities spontaneously. Skin: Warm, dry. Musculoskeletal: No cyanosis or clubbing. Extremities: No edema. Psychiatric: Normal mood and affect. Results Labs 10/11/23 18:34 10/11/23 18:34 Labs: Laboratory Results - last 24 hr 10/11/23 10/11/23 10/11/23 18:33 18:34 21:39 MCV 80.5 MCH 26.5 L MCHC 32.9 RDW 13.5 Plt Count 391 MPV 10.0 Immature Gran % (Auto) 0.9 H Neut % (Auto) 80.8 H Lymph % (Auto) 6.1 L [place] % (Auto) 8.7 Eos % (Auto) 3.0 Baso % (Auto) 0.5 Lymph # (Auto) 0.9 L [place] # (Auto) 1.2 Eos # (Auto) 0.4 Baso # (Auto) 0.1 Abs Immat Gran (auto) 0.12 H Absolute Neuts (auto) 11.3 H Absolute Nucleated RBC 0.000 Nucleated RBC % (auto) 0.0 ESR 7 PT 14.1 H INR 1.2 H APTT 31.2 Anion Gap 14 Estim Creat Clear Calc 152.0 Estimated GFR > 60 Random Glucose 102 Calcium 9.8 Total Bilirubin 0.5 AST 19 ALT 24 Alkaline Phosphatase 67 Total Creatine Kinase 128 C-Reactive Protein 1.24 H Total Protein 7.2 Albumin 4.3 Lipase 9 Urine Color Yellow Urine Appearance Clear Urine pH 6.0 Ur Specific [place] 1.025 Urine Protein Trace Urine Glucose (UA) Negative Urine Ketones >=160 Urine Blood Negative Urine Nitrite Negative Ur Leukocyte Esterase Negative Urine RBC 0-2 Urine WBC 0-5 Ur Squamous Epith Cells 3-5 Urine Bacteria None Seen Hyaline Casts 11-20 Granular Casts Present COVID-19 (ZANDRA) Negative COVID-19 Clin Com See Note Influenza Type A (RUI) Negative Influenza Type B (RUI) Negative Influenza A & B Note See Note Assessment and Plan (1) Abdominal pain: Status: Acute Plan Pt is a 27-year-old male with a PMH significant for ulcerative colitis who presents to the ED with?intractable lower abdominal pain x2 weeks and nausea and vomiting x1 week. Pt will be admitted to the hospital for treatment and further evaluation of intractable abdominal pain with nausea and vomiting likely secondary to epiploic appendagitis. Abdominal pain Pt with lower abdominal pain x2 weeks, nausea and vomiting since today Has been having regular small bowel movements Was seen in our ED on 10/01 and 10/09, and at [facility] ED yesterday on 10/10 Unclear etiology: CT with evidence of epiploic appendagitis, UC flare versus gastroparesis versus gastroenteritis vs cyclic vomiting syndrome less likely Patient has been treated with Augmentin and prednisone to no effect Will treat with ketorolac 15 mg IV Q6 x2 doses, morphine p.r.n., Reglan q8h carmita, ondansetron p.r.n. Place on maintenance IVF Clear liquid diet for now, advance as tolerated GI consult Pt otherwise has no other acute medical complaints or chronic medical conditions. Full Code Attending:?Dr. Aden DVT Prophylaxis: Lovenox Pt will require a hospitalization of at least two nights for treatment of?severe abdominal pain likely secondary to epiploic appendagitis. Given that this is the pt's fourth presentation to the ED in the past ten days and has been unable to tolerate p.o. intake, he will require in patient hospitalized care to further evaluate and treat his intractable abdominal pain. Quality Stroke Does the patient have a stroke diagnosis?: No VTE Prior VTE?: No VTE Risk Level:: Medical - moderate - high VTE Device Contraindication: Treatment Not Indicated VTE Drug Contraindication: N/A - Med Ordered
[2023-10-11 23:03] VITALS: BP 120/70; PULSE 78; RESP 16; TEMP 36.8; O2SAT 98
[2023-10-11] MEDS: Lactated Ringers 1,000 ML 100 ML IVCONT (23:35)
--- NOTE | 2023-10-11 23:57 | PC.NURSE ---
pt medicated per mar at this time.
[2023-10-12] MEDS: Metoclopramide HCl 10 MG/2 ML VIAL IVPUSH ×2 (00:51→09:48)
--- NOTE | 2023-10-12 00:52 | PC.NURSE ---
pt sleeping at this time, respirations even and unlabored.
--- NOTE | 2023-10-12 01:46 | PC.NURSE ---
pt ambulated to bathroom with steady gait, pt denies pain at this time.
[2023-10-12] MEDS: Morphine Sulfate 4 MG/ML CARTRIDGE IVPUSH ×2 (02:36→09:48)
--- NOTE | 2023-10-12 02:40 | PC.NURSE ---
pt medicated per nov for 8/10 lower abdominal pain and anal pain at this time. respirations even and unlabored.
[2023-10-12 03:36] VITALS: BP 107/53; PULSE 88; RESP 12; TEMP 36.6; O2SAT 98
[2023-10-12] MEDS: Pantoprazole Sodium 40 MG/10 ML VIAL IVPUSH (05:45)
[2023-10-12] MEDS: Ketorolac Tromethamine 15 MG/ML VIAL IVPUSH (05:45)
[2023-10-12 05:46] VITALS: BP 126/62; PULSE 80; RESP 21; TEMP 36.8; O2SAT 97
--- NOTE | 2023-10-12 05:46 | MHC.EDTECH ---
Pt provided with a hospital bed
--- NOTE | 2023-10-12 05:49 | PC.NURSE ---
pt placed in hospital bed at this time for comfort, pt medicated per mar.
--- NOTE | 2023-10-12 07:57 | HO.PM.IMPN ---
Subjective Subjective Date of Service: 10/12/23 Interval History: abd pain Review of Systems similar abd pain intermittent no fever or chills Physical Exam Vital Signs: Vital Signs: Last Vital Signs Temp 98.3 F 10/12/23 05:46 Pulse 80 10/12/23 05:46 Resp 21 H 10/12/23 05:46 BP 126/62 10/12/23 05:46 Pulse Ox 97 10/12/23 05:46 O2 Del Method Room Air 10/12/23 05:46 BMI result Body Mass Index 37.2 Appearance: Alert.? Oriented X3.? cvs: rrr, [id number] , no murmur res: clear to auscultation ,no rhonchii or wheezing abd: no rebound or guarding ,abd pain seems similar, bs present. ext pulses present , no cyanosis . neuro: axo3 , nonfocal. Objective Data Active Medications Acetaminophen (Acetaminophen 325 Mg Tablet) 650 mg PO Q6H PRN PRN Reason: Pain, Mild (Pain Scale 1-3) Benzonatate (Benzonatate 100 Mg Capsule) 100 mg PO TID PRN PRN Reason: Cough Docusate Sodium (Docusate Sodium 100 Mg Capsule) 100 mg PO DAILY PRN PRN Reason: Constipation Enoxaparin Sodium (Enoxaparin Sodium 40 Mg/0.4 Ml Syringe) 40 mg SUBCUT BEDTIME [facility] Last Admin: 10/11/23 23:37 Dose: Not Given Documented By: LENCHO Non-Admin Reason: Patient Refused Lactated Ringer's (Lr) 1,000 mls @ 100 mls/hr IVCONT .Q10H [facility] Last Admin: 10/11/23 23:35 Dose: 100 mls/hr Documented By: LENCHO Melatonin (Melatonin 3 Mg Tablet) 6 mg PO BEDTIME PRN PRN Reason: Insomnia Metoclopramide HCl (Metoclopramide Hcl 10 Mg/2 Ml Vial) 10 mg IVPUSH Q8H [facility] Last Admin: 10/12/23 00:51 Dose: 10 mg Documented By: LENCHO Morphine Sulfate (Morphine Sulfate 4 Mg/Ml Cartridge) 4 mg IVPUSH Q4H PRN; Protocol PRN Reason: Pain, Severe (Pain Scale 7-10) Last Admin: 10/12/23 02:36 Dose: 4 mg Documented By: LENCHO Ondansetron HCl (Ondansetron Hcl 4 Mg/2 Ml Vial) 4 mg IVPUSH Q8H PRN PRN Reason: Nausea and Vomiting Pantoprazole Sodium (Pantoprazole Sodium 40 Mg/10 Ml Vial) 40 mg IVPUSH DAILY@0630 [facility] Last Admin: 10/12/23 05:45 Dose: 40 mg Documented By: LENCHO Sodium Chloride (0.9 % Sodium Chloride Flush 3 Ml Syringe) 3 ml IVFLUSH QSHIFT [facility] Last Admin: 10/12/23 07:08 Dose: Not Given Documented By: PAKO Non-Admin Reason: IV Running Labs 10/11/23 18:34 10/11/23 18:34 Labs: Laboratory Results - last 24 hr 10/11/23 10/11/23 10/11/23 18:33 18:34 21:39 MCV 80.5 MCH 26.5 L MCHC 32.9 RDW 13.5 Plt Count 391 MPV 10.0 Immature Gran % (Auto) 0.9 H Neut % (Auto) 80.8 H Lymph % (Auto) 6.1 L [place] % (Auto) 8.7 Eos % (Auto) 3.0 Baso % (Auto) 0.5 Lymph # (Auto) 0.9 L [place] # (Auto) 1.2 Eos # (Auto) 0.4 Baso # (Auto) 0.1 Abs Immat Gran (auto) 0.12 H Absolute Neuts (auto) 11.3 H Absolute Nucleated RBC 0.000 Nucleated RBC % (auto) 0.0 ESR 7 PT 14.1 H INR 1.2 H APTT 31.2 Anion Gap 14 Estim Creat Clear Calc 152.0 Estimated GFR > 60 Random Glucose 102 Calcium 9.8 Total Bilirubin 0.5 AST 19 ALT 24 Alkaline Phosphatase 67 Total Creatine Kinase 128 C-Reactive Protein 1.24 H Total Protein 7.2 Albumin 4.3 Lipase 9 Urine Color Yellow Urine Appearance Clear Urine pH 6.0 Ur Specific [place] 1.025 Urine Protein Trace Urine Glucose (UA) Negative Urine Ketones >=160 Urine Blood Negative Urine Nitrite Negative Ur Leukocyte Esterase Negative Urine RBC 0-2 Urine WBC 0-5 Ur Squamous Epith Cells 3-5 Urine Bacteria None Seen Hyaline Casts 11-20 Granular Casts Present COVID-19 (ZANDRA) Negative COVID-19 Clin Com See Note Influenza Type A (RUI) Negative Influenza Type B (RUI) Negative Influenza A & B Note See Note Assessment and Plan (1) Abdominal pain: Status: Acute Plan 27-year-old male with a PMH significant for ulcerative colitis who presents to the ED with?intractable lower abdominal pain x2 weeks and nausea and vomiting x1 week. Pt will be admitted to the hospital for treatment and further evaluation of intractable abdominal pain with nausea and vomiting likely secondary to epiploic appendagitis. Abdominal pain Pt with lower abdominal pain x2 weeks, nausea and vomiting since today recent ED on 10/01 and 10/09, and at [facility] ED yesterday on 10/10 CT with evidence of epiploic appendagitis, UC flare versus gastroparesis versus gastroenteritis vs cyclic vomiting syndrome less likely. treated with Augmentin and prednisone to no effect. continue ketorolac 15 mg IV Q6 x2 doses,iv morphine p.r.n., Reglan q8h carmita, ondansetron p.r.n., maintenance IVF Clear liquid diet for now, advance as tolerated GI consult pending ongoing hospitlisation need : for abd pain unclear etiology,multiple recent ed visits ,unable to tolerate diet-need iv hydration, iv pain meds,zofran,expert evaluation for abd pain. Quality Stroke Does the patient have a stroke diagnosis?: No VTE Prior VTE?: No VTE Risk Level:: Medical - moderate - high VTE Device Contraindication: Treatment Not Indicated VTE Drug Contraindication: N/A - Med Ordered
[2023-10-12 08:00] VITALS: BP 141/79; PULSE 90; RESP 16; TEMP 37.4; O2SAT 97
--- NOTE | 2023-10-12 08:04 | PC.NURSE ---
pt tolerated drinking his am juice and eating his pudding and reported that was it
--- NOTE | 2023-10-12 08:35 | PC.NURSE ---
disconnected pt to ambulate to the BR. pt ambulating with mother at side, steady gait. reconnected to IVF upon return to rm pt denies pain at this time. reports no nausea.
--- NOTE | 2023-10-12 08:53 | PHA.MEDREC ---
Pharmacy Consult ? Medication Reconciliation Pharmacy has completed the medication reconciliation. Spoke to patient and confirmed medication list.
[2023-10-12] MEDS: Lactated Ringers 1,000 ML 100 ML IVCONT ×2 (09:49→22:18)
--- NOTE | 2023-10-12 12:04 | PM.EVENT ---
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 Also, recent constipation suggests a component of underlying IBS/C. No evidence of active colitis. Colonoscopy 2 yrs ago neg per pt. Rec: Trial of dicyclomine D/C nilson Educated patient and mother about proctalgia fugax and epiploic appendagitis. No abx or steroid rx indicated. Time Spent With Patient Time: Total time managing care of this patient today ____ minutes.
--- NOTE | 2023-10-12 12:28 | MHC.CM.PN ---
PT REPORTS HE LIVES WITH HIS PARENTS WHO WERE PRESENT AT BEDSIDE PT REPORTS BEING INDEPENDENT WITH ALL CARE, HAVING NO DME AND NO SERVICES PT DOES NOT HAVE A HCP AND DECLINES TO COMPLETE ONE HE REPORTS HIS PCP IS CLARA CHAPMAN DCP: HOME NO SERVICES VIA FAMILY TRANSPORT
[2023-10-12] MEDS: Dicyclomine HCl 10 MG CAPSULE 20 MG PO ×2 (15:59→20:37)
[2023-10-12 16:00] VITALS: BP 132/72; PULSE 80; RESP 18; TEMP 37.4; O2SAT 96
[2023-10-12 19:04] VITALS: BP 127/73; PULSE 90; RESP 18; TEMP 36.9; O2SAT 97
[2023-10-12] MEDS: Enoxaparin Sodium 40 MG/0.4 ML SYRINGE SUBCUT (20:37)
--- NOTE | 2023-10-12 22:45 | CONS_ITS ---
DATE OF SERVICE: 10/12/2023 REFERRING PHYSICIAN: MILKA Bhatia REASON FOR CONSULTATION: Abdominal and rectal pain. HISTORY OF PRESENT ILLNESS: The patient is a pleasant 27-year-old man who was admitted to the hospital because of symptoms of abdominal and rectal pain. He describes a history of colitis diagnosed in 2013, records indicate that he was diagnosed with indeterminate colitis at age 18 in 2013 and treated with various medications including mesalamine, steroids, and Humira, which he stopped taking on his own as he felt better. He reports his last colonoscopy was in [place] approximately 2 years ago and was normal. He reports about 2 weeks of rectal pain radiating into the testicles with bilateral lower quadrant abdominal pain. Symptoms seemed to come in spasms and last for seconds and then resolve. He has tried taking ibuprofen and Tylenol without relief. He has had several emergency room visits for symptoms and has undergone laboratory testing as well as imaging including 2 CAT scans, which are reviewed. CT scanning done on October 09 suggested a diagnosis of epiploic appendagitis. He has actually had some constipation recently and has cut back on his oral intake. He was evaluated in the emergency department again yesterday with laboratory studies showing a slight elevation in his white blood cell count. Of note, he had been treated with a short course of steroids and antibiotics as an outpatient. Chemistries were unremarkable. C-reactive protein was elevated at 1.24 and imaging was not repeated. He has been admitted and is being treated supportively with IV fluids and pain medications as well as antiemetics. He has been tolerating a clear liquid diet. PAST MEDICAL HISTORY: Indeterminate colitis as above. He denies other medical or surgical illnesses. CURRENT MEDICATIONS: His current medication list is reviewed in the chart. ALLERGIES: THERE ARE NO MEDICATION ALLERGIES REPORTED. FAMILY HISTORY: This is negative for inflammatory bowel disease. SOCIAL HISTORY: He denies tobacco and alcohol use. He does use marijuana, but states he has not used this over the past month. REVIEW OF SYSTEMS: SKIN: No pruritus. HEENT: Negative. CARDIOPULMONARY: He denies shortness of breath or chest pain. GASTROINTESTINAL: As above. GENITOURINARY: Negative. NEUROPSYCHIATRIC: Negative. PHYSICAL EXAMINATION: GENERAL: Shows a pleasant male, lying comfortably in bed. VITAL SIGNS: Reviewed in electronic medical record and are stable. SKIN: Shows multiple tattoos. HEENT: Shows no scleral icterus. NECK: Without lymphadenopathy or thyromegaly. LUNGS: Clear. HEART: Shows regular rate and rhythm. S1, S2. No murmur. ABDOMEN: Soft without focal masses or tenderness. Bowel sounds are present. No organomegaly is noted. EXTREMITIES: Without edema. LABORATORY DATA AND IMAGING STUDIES: Reviewed. IMPRESSION: Abdominal and rectal pain. 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 We also discussed the diagnosis of epiploic appendagitis and that it does not require treatment with antibiotics or steroids. He does not seem to have any active evidence of colitis and his recent colonoscopy 2 years ago was reportedly negative. This will be obtained and reviewed. I have recommended a trial of dicyclomine for his symptoms. I would recommend discontinuing metoclopramide because of its adverse side effect profile and potential to make cramping worse. Stool for fecal calprotectin will be of obtained and his diet can be advanced as tolerated. Thanks for asking me to see him. I will follow him in the hospital with you. MD JAVIER Kaiser/OLIVE / [phone]
[2023-10-13] MEDS: Ketorolac Tromethamine 15 MG/ML VIAL IVPUSH (03:12)
[2023-10-13 03:41] VITALS: BP 141/73; PULSE 70; RESP 16; TEMP 36.5; O2SAT 96
[2023-10-13 03:42] VITALS: RESP 18
[2023-10-13] MEDS: Morphine Sulfate 4 MG/ML CARTRIDGE IVPUSH ×2 (05:35→15:16)
[2023-10-13] MEDS: Pantoprazole Sodium 40 MG/10 ML VIAL IVPUSH (05:40)
[2023-10-13 07:15] VITALS: BP 150/77; PULSE 74; RESP 18; TEMP 36.7; O2SAT 100
[2023-10-13] MEDS: Lactated Ringers 1,000 ML 100 ML IVCONT ×2 (07:24→21:13)
[2023-10-13] MEDS: Dicyclomine HCl 10 MG CAPSULE 20 MG PO ×4 (07:25→21:11)
[2023-10-13 08:44] LABS: Hemoglobin 13.7 g/dl (14.0-18.0); Mean Corpuscular HGB Conc 33.4 g/dl (31.0-36.0); Mean Corpuscular Hemoglobin 26.8 pg (27.0-33.0); Mean Corpuscular Volume 80.2 fL (80.0-98.0); Mean Platelet Volume 9.9 fL (9.4-12.4); Platelet Count 348 X10*3/uL (160-400); Red Blood Count 5.11 X10*6/uL (4.60-5.80); Red Cell Distribution Width 13.3 % (11.0-16.0); White Blood Count 7.6 X10*3/uL (4.8-10.8)
--- NOTE | 2023-10-13 09:50 | P.PNIM_ITS ---
Subjective Subjective Date of Service: 10/13/23 Interval History: diarrhae Review of Systems having some dark loose bms no fever abd pain intermittent similar Physical Exam 2 Vital Signs: Vital Signs: Last Vital Signs Temp 98.1 F 10/13/23 07:15 Pulse 74 10/13/23 07:15 Resp 18 10/13/23 07:15 BP 150/77 H 10/13/23 07:15 Pulse Ox 100 10/13/23 07:15 O2 Del Method Room Air 10/13/23 07:15 O2 Flow Rate 98 10/12/23 08:00 BMI result Body Mass Index 37.2 Appearance: Alert.? Oriented X3.? cvs: rrr, [id number] , no murmur res: clear to auscultation ,no rhonchii or wheezing abd: no rebound or guarding ,abd pain seems similar, bs present. ext pulses present , no cyanosis . neuro: axo3 , nonfocal. Objective Data Active Medications Acetaminophen (Acetaminophen 325 Mg Tablet) 650 mg PO Q6H PRN PRN Reason: Pain, Mild (Pain Scale 1-3) Benzonatate (Benzonatate 100 Mg Capsule) 100 mg PO TID PRN PRN Reason: Cough Dicyclomine HCl (Dicyclomine Hcl 10 Mg Capsule) 20 mg PO QIDACHS [facility] Last Admin: 10/13/23 07:25 Dose: 20 mg Documented By: JASPREET Docusate Sodium (Docusate Sodium 100 Mg Capsule) 100 mg PO DAILY PRN PRN Reason: Constipation Enoxaparin Sodium (Enoxaparin Sodium 40 Mg/0.4 Ml Syringe) 40 mg SUBCUT BEDTIME [facility] Last Admin: 10/12/23 20:37 Dose: 40 mg Documented By: ERLINDA Lactated Ringer's (Lr) 1,000 mls @ 100 mls/hr IVCONT .Q10H [facility] Last Admin: 10/13/23 07:24 Dose: 100 mls/hr Documented By: JASPREET Melatonin (Melatonin 3 Mg Tablet) 6 mg PO BEDTIME PRN PRN Reason: Insomnia Morphine Sulfate (Morphine Sulfate 4 Mg/Ml Cartridge) 4 mg IVPUSH Q4H PRN; Protocol PRN Reason: Pain, Severe (Pain Scale 7-10) Last Admin: 10/13/23 05:35 Dose: 4 mg Documented By: TRAVIS Ondansetron HCl (Ondansetron Hcl 4 Mg/2 Ml Vial) 4 mg IVPUSH Q8H PRN PRN Reason: Nausea and Vomiting Pantoprazole Sodium (Pantoprazole Sodium 40 Mg/10 Ml Vial) 40 mg IVPUSH DAILY@0630 [facility] Last Admin: 10/13/23 05:40 Dose: 40 mg Documented By: TRAVIS Sodium Chloride (0.9 % Sodium Chloride Flush 3 Ml Syringe) 3 ml IVFLUSH QSHIFT [facility] Last Admin: 10/13/23 06:56 Dose: Not Given Documented By: JASPREET Non-Admin Reason: IV Running Labs 10/13/23 08:31 10/11/23 18:34 Labs: Laboratory Results - last 24 hr 10/13/23 08:31 MCV 80.2 MCH 26.8 L MCHC 33.4 RDW 13.3 Plt Count 348 MPV 9.9 Absolute Nucleated RBC 0.000 Nucleated RBC % (auto) 0.0 Blood Type O Positive Antibody Screen NEGATIVE Assessment and Plan (1) Abdominal pain: Status: Acute Plan 27-year-old male with a PMH significant for ulcerative colitis who presents to the ED with?intractable lower abdominal pain x2 weeks and nausea and vomiting x1 week. Pt will be admitted to the hospital for treatment and further evaluation of intractable abdominal pain with nausea and vomiting likely secondary to epiploic appendagitis. Abdominal pain has loose dark bm Pt with lower abdominal pain x2 weeks, nausea and vomiting since today recent ED on 10/01 and 10/09, and at [facility] ED on 10/10 CT with evidence of epiploic appendagitis, UC flare versus gastroparesis versus gastroenteritis vs cyclic vomiting syndrome less likely. treated with Augmentin and prednisone to no effect. h/h repeated seems fine similar to yesterday added stool gip and cdiff test continue iv morphine p.r.n., Reglan q8h carmita, ondansetron p.r.n., maintenance IVF Clear liquid diet for now, advance as tolerated GI consult oted -?ibs -added dycloamine ongoing hospitlisation need : for abd pain and diarrhae unclear etiology,multiple recent ed visits ,unable to tolerate diet-need iv hydration, iv pain meds,zofran. Quality Stroke Does the patient have a stroke diagnosis?: No VTE Prior VTE?: No VTE Risk Level:: Medical - moderate - high VTE Device Contraindication: Treatment Not Indicated VTE Drug Contraindication: N/A - Med Ordered
--- NOTE | 2023-10-13 10:56 | MHC.CM.PN ---
EMR reviewed. Per MD rounds patient is not medically cleared for dc at this time. No changes to dc plan. CM will continue to follow.
[2023-10-13 15:22] VITALS: BP 154/86; PULSE 76; RESP 18; TEMP 36.7; O2SAT 98
[2023-10-13 15:59] LABS: CDiff Gene PCR NEGATIVE (Negative)
[2023-10-13 19:09] VITALS: BP 139/80; PULSE 76; RESP 18; TEMP 37.3; O2SAT 97
[2023-10-14 03:24] VITALS: BP 115/55; PULSE 78; RESP 18; TEMP 36.7; O2SAT 97
[2023-10-14] MEDS: Pantoprazole Sodium 40 MG/10 ML VIAL IVPUSH (06:23)
[2023-10-14 06:49] VITALS: BP 131/78; PULSE 73; RESP 16; TEMP 36.1; O2SAT 98
[2023-10-14] MEDS: 0.9 % Sodium Chloride Flush 3 ML SYRINGE IVFLUSH ×2 (08:48→20:53)
[2023-10-14] MEDS: Dicyclomine HCl 10 MG CAPSULE 20 MG PO ×4 (08:48→20:45)
--- NOTE | 2023-10-14 10:29 | HO.PM.IMPN ---
Subjective Subjective Date of Service: 10/15/23 Interval History: diarrhae Review of Systems abd pain and diarrhae somewhat improving Physical Exam Vital Signs: Vital Signs: Last Vital Signs Temp 97 F 10/14/23 06:49 Pulse 73 10/14/23 06:49 Resp 16 10/14/23 06:49 BP 131/78 10/14/23 06:49 Pulse Ox 98 10/14/23 06:49 O2 Del Method Room Air 10/14/23 06:49 O2 Flow Rate 98 10/12/23 08:00 BMI result Body Mass Index 37.2 Appearance: Alert.? Oriented X3.? cvs: rrr, [id number] , no murmur res: clear to auscultation ,no rhonchii or wheezing abd: no rebound or guarding ,abd pain seems similar, bs present. ext pulses present , no cyanosis . neuro: axo3 , nonfocal. Objective Data Active Medications Acetaminophen (Acetaminophen 325 Mg Tablet) 650 mg PO Q6H PRN PRN Reason: Pain, Mild (Pain Scale 1-3) Benzonatate (Benzonatate 100 Mg Capsule) 100 mg PO TID PRN PRN Reason: Cough Dicyclomine HCl (Dicyclomine Hcl 10 Mg Capsule) 20 mg PO QIDACHS [facility] Last Admin: 10/14/23 08:48 Dose: 20 mg Documented By: MIRIAM Docusate Sodium (Docusate Sodium 100 Mg Capsule) 100 mg PO DAILY PRN PRN Reason: Constipation Enoxaparin Sodium (Enoxaparin Sodium 40 Mg/0.4 Ml Syringe) 40 mg SUBCUT BEDTIME [facility] Last Admin: 10/13/23 21:12 Dose: Not Given Documented By: PADMINI Non-Admin Reason: Patient Refused Loperamide HCl (Loperamide Hcl 2 Mg Capsule) 2 mg PO Q4H PRN PRN Reason: Diarrhea Melatonin (Melatonin 3 Mg Tablet) 6 mg PO BEDTIME PRN PRN Reason: Insomnia Morphine Sulfate (Morphine Sulfate 4 Mg/Ml Cartridge) 4 mg IVPUSH Q4H PRN; Protocol PRN Reason: Pain, Severe (Pain Scale 7-10) Last Admin: 10/13/23 15:16 Dose: 4 mg Documented By: JASPREET Ondansetron HCl (Ondansetron Hcl 4 Mg/2 Ml Vial) 4 mg IVPUSH Q8H PRN PRN Reason: Nausea and Vomiting Pantoprazole Sodium (Pantoprazole Sodium 40 Mg/10 Ml Vial) 40 mg IVPUSH DAILY@0630 [facility] Last Admin: 10/14/23 06:23 Dose: 40 mg Documented By: PADMINI Sodium Chloride (0.9 % Sodium Chloride Flush 3 Ml Syringe) 3 ml IVFLUSH QSHIFT [facility] Last Admin: 10/14/23 08:48 Dose: 3 ml Documented By: MIRIAM Labs 10/13/23 08:31 10/11/23 18:34 Labs: Laboratory Results - last 24 hr 10/13/23 14:33 C. difficile Tox B Gene NEGATIVE Assessment and Plan (1) Abdominal pain: Status: Acute Plan 27-year-old male with a PMH significant for ulcerative colitis who presents to the ED with?intractable lower abdominal pain x2 weeks and nausea and vomiting x1 week. Pt will be admitted to the hospital for treatment and further evaluation of intractable abdominal pain with nausea and vomiting likely secondary to epiploic appendagitis. Abdominal pain Pt with lower abdominal pain x2 weeks, diarrhae somewhat improving recent ED on 10/01 and 10/09, and at [facility] ED yesterday on 10/10 CT with evidence of epiploic appendagitis, UC flare versus gastroparesis versus gastroenteritis vs cyclic vomiting syndrome less likely. treated with Augmentin and prednisone to no effect. cdiff neg, GIP panel pending continue ketorolac 15 mg IV Q6 x2 doses,iv morphine p.r.n., Reglan q8h [facility], ondansetron p.r.n., maintenance IVF,added dyclosamine Clear liquid diet for now, advance as tolerated GI consult noted-Educated patient and mother about proctalgia fugax and epiploic appendagitis. ongoing hospitlisation need : for abd pain unclear etiology,multiple recent ed visits ,unable to tolerate diet-need iv hydration, iv pain meds,zofran,expert evaluation for abd pain. Quality Stroke Does the patient have a stroke diagnosis?: No VTE Prior VTE?: No VTE Risk Level:: Medical - moderate - high VTE Device Contraindication: Treatment Not Indicated VTE Drug Contraindication: N/A - Med Ordered
[2023-10-14 12:21] LABS: Adenovirus F 40/41 Not Detected (Not Detect.); Astrovirus Not Detected (Not Detect.); Campylobacter Not Detected (Not Detect.); Cryptosporidium Not Detected (Not Detect.); Cyclospora cayetanensis Not Detected (Not Detect.); E. coli EAEC Not Detected (Not Detect.); E. coli EPEC Not Detected (Not Detect.); E. coli ETEC Not Detected (Not Detect.); E. coli STEC Not Detected (Not Detect.); Entamoeba histolytica Not Detected (Not Detect.); Giardia lamblia Not Detected (Not Detect.); Norovirus GI/GII Not Detected (Not Detect.); Plesiomonas shigelloides Not Detected (Not Detect.); Rotavirus A Not Detected (Not Detect.); Salmonella Not Detected (Not Detect.); Sapovirus Not Detected (Not Detect.); Shigella sp./EIEC Not Detected (Not Detect.); Vibrio Not Detected (Not Detect.); Vibrio Cholerae Not Detected (Not Detect.); Yersinia enterocolitica Not Detected (Not Detect.)
[2023-10-14 15:33] VITALS: BP 144/85; PULSE 85; RESP 18; TEMP 36.4; O2SAT 98
[2023-10-14 18:47] VITALS: BP 145/78; PULSE 69; RESP 20; TEMP 36.8; O2SAT 98
[2023-10-14] MEDS: Melatonin 3 MG TABLET 6 MG PO (20:48)
[2023-10-15 03:24] VITALS: BP 129/88; PULSE 68; RESP 16; TEMP 36; O2SAT 97
[2023-10-15] MEDS: Morphine Sulfate 4 MG/ML CARTRIDGE IVPUSH (04:37)
[2023-10-15 05:07] VITALS: RESP 18
[2023-10-15] MEDS: Pantoprazole Sodium 40 MG/10 ML VIAL IVPUSH (06:10)
[2023-10-15 07:37] VITALS: BP 123/69; PULSE 67; RESP 18; TEMP 36.2; O2SAT 97
[2023-10-15] MEDS: Dicyclomine HCl 10 MG CAPSULE 20 MG PO ×4 (08:25→20:04)
[2023-10-15] MEDS: Loperamide HCl 2 MG CAPSULE PO (08:27)
[2023-10-15] MEDS: oxyCODONE HCl Immed Release 5 MG TABLET PO ×2 (09:59→20:04)
--- NOTE | 2023-10-15 12:41 | HO.PM.IMPN ---
Subjective Subjective Date of Service: 10/15/23 Interval History: abd pain Review of Systems still has abd pain told patient to please inform staff when next epsiode of diarrhae Physical Exam Vital Signs: Vital Signs: Last Vital Signs Temp 97.1 F 10/15/23 07:37 Pulse 67 10/15/23 07:37 Resp 18 10/15/23 07:37 BP 123/69 10/15/23 07:37 Pulse Ox 97 10/15/23 07:37 O2 Del Method Room Air 10/15/23 07:37 O2 Flow Rate 98 10/12/23 08:00 BMI result Body Mass Index 37.2 Appearance: Alert.? Oriented X3.? cvs: rrr, [id number] , no murmur res: clear to auscultation ,no rhonchii or wheezing abd: no rebound or guarding ,abd pain seems similar, bs present. ext pulses present , no cyanosis . neuro: axo3 , nonfocal. Objective Data Active Medications Acetaminophen (Acetaminophen 325 Mg Tablet) 650 mg PO Q6H PRN PRN Reason: Pain, Mild (Pain Scale 1-3) Benzonatate (Benzonatate 100 Mg Capsule) 100 mg PO TID PRN PRN Reason: Cough Dicyclomine HCl (Dicyclomine Hcl 10 Mg Capsule) 20 mg PO QIDACHS [facility] Last Admin: 10/15/23 11:14 Dose: 20 mg Documented By: KIMMIE Docusate Sodium (Docusate Sodium 100 Mg Capsule) 100 mg PO DAILY PRN PRN Reason: Constipation Enoxaparin Sodium (Enoxaparin Sodium 40 Mg/0.4 Ml Syringe) 40 mg SUBCUT BEDTIME [facility] Last Admin: 10/14/23 20:53 Dose: Not Given Documented By: PADMINI Non-Admin Reason: Patient Refused Loperamide HCl (Loperamide Hcl 2 Mg Capsule) 2 mg PO Q4H PRN PRN Reason: Diarrhea Last Admin: 10/15/23 08:27 Dose: 2 mg Documented By: KIMMIE Melatonin (Melatonin 3 Mg Tablet) 6 mg PO BEDTIME PRN PRN Reason: Insomnia Last Admin: 10/14/23 20:48 Dose: 6 mg Documented By: PADMINI Ondansetron HCl (Ondansetron Hcl 4 Mg/2 Ml Vial) 4 mg IVPUSH Q8H PRN PRN Reason: Nausea and Vomiting Oxycodone HCl (Oxycodone Hcl Immed Release 5 Mg Tablet) 5 mg PO Q6H PRN PRN Reason: Pain, Mild (Pain Scale 1-3) Last Admin: 10/15/23 09:59 Dose: 5 mg Documented By: KIMMIE Sodium Chloride (0.9 % Sodium Chloride Flush 3 Ml Syringe) 3 ml IVFLUSH QSHIFT [facility] Last Admin: 10/15/23 11:16 Dose: Not Given Documented By: KIMMIE Non-Admin Reason: See Note Labs 10/13/23 08:31 10/11/23 18:34 Assessment and Plan (1) Abdominal pain: Status: Acute Plan 27-year-old male with a PMH significant for ulcerative colitis who presents to the ED with?intractable lower abdominal pain x2 weeks and nausea and vomiting x1 week. Pt will be admitted to the hospital for treatment and further evaluation of intractable abdominal pain with nausea and vomiting likely secondary to epiploic appendagitis. Abdominal pain Pt with lower abdominal pain x2 weeks, diarrhae somewhat improving recent ED on 10/01 and 10/09, and [place] [facility] [place]10 CT with evidence of epiploic appendagitis, UC flare versus gastroparesis versus gastroenteritis vs cyclic vomiting syndrome less likely. treated with Augmentin and prednisone to no effect. cdiff neg, GIP panel pending continue ketorolac 15 mg IV Q6 x2 doses,iv morphine p.r.n., Reglan q8h carmita, ondansetron p.r.n., maintenance IVF,added dyclosamine Clear liquid diet for now, advance as tolerated GI consult noted-Educated patient and mother about proctalgia fugax and epiploic appendagitis. Gi Follow up-since patient c/o intermittent pain s ongoing hospitlisation need : for abd pain unclear etiology,multiple recent ed visits ,unable to tolerate diet-need iv hydration, iv pain meds,zofran,expert evaluation for abd pain. Quality Stroke Does the patient have a stroke diagnosis?: No VTE Prior VTE?: No VTE Risk Level:: Medical - moderate - high VTE Device Contraindication: Treatment Not Indicated VTE Drug Contraindication: N/A - Med Ordered
[2023-10-15 15:10] VITALS: BP 143/97; PULSE 73; RESP 20; TEMP 36.3; O2SAT 97
--- NOTE | 2023-10-15 17:11 | P.PNGI_ITS ---
Subjective Subjective Date of Service: 10/15/23 Interval History: Pt complains of a hx of intermittent sharp rectal pain radiating to the scrotum and penis lasting for a few seconds over the last several months. Symptoms have been worse over the past 2 weeks with increased frequency duration and intensity of pain and has visited the ER multiple times. Pt reports fainting due to excessive pain and loosing his job. Pt was started on Dicyclomine with improvement in pain (Initially treated with acetaminophen ibuprofen which did not help) Pt reports waking up at 4 am today with recurrent pain without relief with dicyclomine and has been getting morphine with adequate pain relief. Pain lasts from a few seconds to a few hours and is pain free between epsodes. Pt denies significant abdominal pain. Patient denies fevers, chills or sweating and notes 2-3 episodes of loose to watery stools daily which are dark in color Pt denies any change in pain with BM or body positions. He admits to loosing wt from 262 to 240 lbs. Pt was on a clear liquid diet and had solid food yesterday. Critical Care Time (minutes): 25 Physical Exam 2 Vital Signs: Vital Signs: Last Vital Signs Temp 97.4 F 10/15/23 15:10 Pulse 73 10/15/23 15:10 Resp 20 10/15/23 15:10 BP 143/97 H 10/15/23 15:10 Pulse Ox 97 10/15/23 15:10 O2 Del Method Room Air 10/15/23 15:10 O2 Flow Rate 98 10/12/23 08:00 BMI result Body Mass Index 37.2 Const: General: no acute distress Nutritional Appearance: obese O rientation/consciousness: patient oriented x3 Limitations: no limitations HEENT: Head: Yes normal to inspection Ears: hearing grossly normal bilaterally Eyes: Sclerae: sclerae normal Pupils: Equal, round and reactive pupils present Neck: Neck: Yes normal visual inspection Chest: Chest palpation & inspection: normal inspection of the chest Resp: Effort & Inspection: normal respiratory effort Auscultation: clear to auscultation bilaterally Cardio: Palpation: normal PMI Rate: regular rate Rhythm: regular rhythm Heart sounds: S1 normal heart sound present, S2 normal heart sound present and no murmurs GI: Palpation (GI): Soft to palpation, nontender and No hepatosplenomegaly present Auscultation: normal bowel sounds Rectal Exam - Male: Yes visual inspection normal and Yes tenderness (Digital rectal exam was not attempted due to excessive pain) Skin: General skin exam: no rashes or lesions noted Neuro: General: patient oriented x3, gait normal and moves all extremities Cranial nerves: Yes Equal, round and reactive pupils present Psych: Appearance: grossly normal Mental Status: mental status grossly normal Objective Data Labs 10/13/23 08:31 10/11/23 18:34 Procedures Date of Service Date of Service: 10/15/23 Progress Note: A&P Assessment and plan (1) Rectal pain: Status: Acute Plan 27 YM with a remote hx of UC (has been asymptomatic on no medications since 2014) admitted with rectal pain. 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 Pt reports waking up at 4 am today with recurrent pain without relief with dicyclomine and has been getting morphine with adequate pain relief. Pain lasts from a few seconds to a few hours and is pain free between epsodes. Rectal pain due to proctalgia fugax versus versus jerrod-rectal abscess RECOMMENDATIONS: 1. Continue dicyclomine 20 mg 4 times daily 2. Dibucaine ointment 1% 4 times a day prn (topical NTG and Diltiazem ointment not on formulary) 3. Pelvic MRI in the am to rule out jerrod-rectal abscess (elevated CRP) 4. If symptoms do not improve and MRI is negative, he may need further evaluation with a Flex Sig or colonoscopy. (Dr Mike to on 10/16/23) Time Spent With Patient Time: Total time managing care of this patient today ____ minutes. Quality Stroke Does the patient have a stroke diagnosis?: No VTE Prior VTE?: No VTE Risk Level:: Medical - moderate - high VTE Device Contraindication: Treatment Not Indicated VTE Drug Contraindication: N/A - Med Ordered
[2023-10-15 18:52] VITALS: BP 130/67; PULSE 74; RESP 18; TEMP 36.6; O2SAT 99
[2023-10-15] MEDS: 0.9 % Sodium Chloride Flush 3 ML SYRINGE IVFLUSH (20:04)
[2023-10-16] MEDS: Melatonin 3 MG TABLET 6 MG PO ×2 (01:29→22:50)
[2023-10-16 03:04] VITALS: BP 107/52; PULSE 60; RESP 16; TEMP 36.1; O2SAT 99
[2023-10-16] MEDS: Acetaminophen 325 MG TABLET 650 MG PO ×2 (03:23→22:50)
[2023-10-16] MEDS: oxyCODONE HCl Immed Release 5 MG TABLET PO ×2 (03:24→19:43)
[2023-10-16 06:27] LABS: Anion Gap 14 (12-20); Blood Urea Nitrogen 5 mg/dL (9-16); Calcium 9.4 mg/dL (8.4-10.2); Carbon Dioxide 27 mmol/L (22-29); Chloride 104 mmol/L (96-108); Creatinine Clr Calc Pharmacy 159.2; Estimated Glomerular Filt Rate > 60; Glucose Random 95 mg/dL (60-115); Potassium 3.4 mmol/L (3.3-5.1); Sodium 142 mmol/L (135-145)
[2023-10-16 07:09] VITALS: BP 114/64; PULSE 66; RESP 18; TEMP 36.6; O2SAT 100
[2023-10-16] MEDS: Dicyclomine HCl 10 MG CAPSULE 20 MG PO ×4 (07:49→19:42)
[2023-10-16] MEDS: 0.9 % Sodium Chloride Flush 3 ML SYRINGE IVFLUSH ×3 (07:50→22:37)
[2023-10-16] MEDS: gadobutroL 10 ML VIAL IVPUSH (11:26)
--- NOTE | 2023-10-16 13:14 | P.PNIM_ITS ---
Subjective Subjective Date of Service: 10/16/23 Interval History: abd pain Review of Systems still has recatl pain told patient to please inform staff when next epsiode of diarrhae Physical Exam 2 Vital Signs: Vital Signs: Last Vital Signs Temp 97.8 F 10/16/23 07:09 Pulse 66 10/16/23 07:09 Resp 18 10/16/23 07:09 BP 114/64 10/16/23 07:09 Pulse Ox 100 10/16/23 07:09 O2 Del Method Room Air 10/16/23 07:09 O2 Flow Rate 98 10/12/23 08:00 BMI result Body Mass Index 37.2 Appearance: Alert.? Oriented X3.? cvs: rrr, [id number] , no murmur res: clear to auscultation ,no rhonchii or wheezing abd: no rebound or guarding ,rectal painseems similar, bs present. ext pulses present , no cyanosis . neuro: axo3 , nonfocal. Objective Data Active Medications Acetaminophen (Acetaminophen 325 Mg Tablet) 650 mg PO Q6H PRN PRN Reason: Pain, Mild (Pain Scale 1-3) Last Admin: 10/16/23 03:23 Dose: 650 mg Documented By: MARY Benzonatate (Benzonatate 100 Mg Capsule) 100 mg PO TID PRN PRN Reason: Cough Dibucaine (Dibucaine 1 % Oint 28 Gm Tube) 1 appl TOPICAL QID PRN; Protocol PRN Reason: rectal pain/spasm Last Admin: 10/16/23 01:29 Dose: 1 appl Documented By: MARY Dicyclomine HCl (Dicyclomine Hcl 10 Mg Capsule) 20 mg PO QIDACHS [facility] Last Admin: 10/16/23 11:54 Dose: 20 mg Documented By: BRAULIO Docusate Sodium (Docusate Sodium 100 Mg Capsule) 100 mg PO DAILY PRN PRN Reason: Constipation Enoxaparin Sodium (Enoxaparin Sodium 40 Mg/0.4 Ml Syringe) 40 mg SUBCUT BEDTIME [facility] Last Admin: 10/15/23 20:04 Dose: Not Given Documented By: MARY Non-Admin Reason: Patient Refused Loperamide HCl (Loperamide Hcl 2 Mg Capsule) 2 mg PO Q4H PRN PRN Reason: Diarrhea Last Admin: 10/15/23 08:27 Dose: 2 mg Documented By: ARMANDFAHayes Melatonin (Melatonin 3 Mg Tablet) 6 mg PO BEDTIME PRN PRN Reason: Insomnia Last Admin: 10/16/23 01:29 Dose: 6 mg Documented By: MARY Ondansetron HCl (Ondansetron Hcl 4 Mg/2 Ml Vial) 4 mg IVPUSH Q8H PRN PRN Reason: Nausea and Vomiting Oxycodone HCl (Oxycodone Hcl Immed Release 5 Mg Tablet) 5 mg PO Q6H PRN PRN Reason: Pain, Mild (Pain Scale 1-3) Last Admin: 10/16/23 03:24 Dose: 5 mg Documented By: MARY Sodium Chloride (0.9 % Sodium Chloride Flush 3 Ml Syringe) 3 ml IVFLUSH QSHIFT CARMITA Last Admin: 10/16/23 07:50 Dose: 3 ml Documented By: WALKERBBAJ Labs 10/13/23 08:31 10/16/23 05:56 Labs: Laboratory Results - last 24 hr 10/16/23 05:56 Hold Purple Top SEE NOTE Anion Gap 14 Estim Creat Clear Calc 159.2 Estimated GFR > 60 Random Glucose 95 Calcium 9.4 Assessment and Plan (1) Abdominal pain: Status: Acute Plan 27-year-old male with a PMH significant for ulcerative colitis who presents to the ED with?intractable lower abdominal pain x2 weeks and nausea and vomiting x1 week. Pt will be admitted to the hospital for treatment and further evaluation of intractable abdominal pain with nausea and vomiting likely secondary to epiploic appendagitis. Abdominal pain Pt with lower abdominal pain x2 weeks, diarrhae somewhat improving recent ED on 10/01 and 10/09, and at [facility] [place] ED yesterday on 10/10 CT with evidence of epiploic appendagitis, UC flare versus gastroparesis versus gastroenteritis vs cyclic vomiting syndrome less likely. treated with Augmentin and prednisone to no effect. cdiff neg, GIP panel negative added pelvic mri for recatl pain oxycodone ,Reglan q8h carmita, ondansetron p.r.n., maintenance IVF,added dyclosamine Clear liquid diet for now, advance as tolerated GI consult noted-Educated patient and mother about proctalgia fugax and epiploic appendagitis. Gi follow up. ongoing hospitlisation need : for abd pain unclear etiology,multiple recent ed visits ,unable to tolerate diet-need iv hydration, iv pain meds,zofran,expert evaluation for abd pain. Quality Stroke Does the patient have a stroke diagnosis?: No VTE Prior VTE?: No VTE Risk Level:: Medical - moderate - high VTE Device Contraindication: Treatment Not Indicated VTE Drug Contraindication: N/A - Med Ordered
[2023-10-16 15:07] VITALS: BP 133/83; PULSE 65; RESP 18; TEMP 36.6; O2SAT 98
--- NOTE | 2023-10-16 15:25 | MHC.CM.PN ---
PER MD ROUNDS, PT NOT YET READY TO DC DCP REMAINS HOME WITH NO SERVICES VIA FAMILY TRANSPORT
[2023-10-16 19:13] VITALS: BP 162/90; PULSE 68; RESP 18; TEMP 37.1; O2SAT 100
[2023-10-17 03:32] VITALS: BP 117/76; PULSE 62; RESP 16; TEMP 36.1; O2SAT 99
[2023-10-17 07:16] VITALS: BP 124/73; PULSE 60; RESP 18; TEMP 36.1; O2SAT 98
[2023-10-17] MEDS: Dicyclomine HCl 10 MG CAPSULE 20 MG PO (07:52)
[2023-10-17] MEDS: 0.9 % Sodium Chloride Flush 3 ML SYRINGE IVFLUSH (07:54)
--- NOTE | 2023-10-17 09:45 | P.DS_ITS ---
DS: Providers Provider Date of Service: 10/17/23 Date of admission: 10/11/23 23:06 Date of discharge: 10/17/23 Primary care physician: None Physician Consults: 10/11/23 23:11 Consult to Gastroenterology Routine Consulting Provider: Amando Gonzalez Reason for consultation: Abdmonial pain x2 weeks, hx of UC, ?epiploic appendagitis Attending physician on discharge: Katarina Donnelly Discharging clinician: Katarina Donnelly DS: Diagnosis Discharge Diagnosis (1) Abdominal pain: Status: Acute DS: Summary Hospital Course Hospital Course: 27 y/o with question ulcerative colitis that was diagnosed over 10 years ago when he was still in high school. Patient states that he was originally on Humira for a few years, though stopped taking it in 2013. Patient reports he used to get bloody diarrhea without abdominal pain when he had UC flares prior to being placed on Humira. Last flare was ?many years ago? while patient was in high school. Patient states that current symptoms began around his anus, and felt like there was class in his bowels or that he was being stabbed with knives. Pain eventually migrated to his scrotal and genital area and then up into his lower abdomen. Patient denies diarrhea, but states he has had small bowel movements during this time. Has not been eating much during this time given abdominal pain, though denies any nausea or vomiting until this morning when he had 2 episodes at work and another 2 episodes at home. Patient has presented multiple times in the past 10 days to the ED here and at [facility]. Patient initially presented on 10/01 at the ED here where CT of abdomen and pelvis on 10/01/2023 found nonspecific mild mural thickening involving the entire descending colon but with no pericolonic fat, question of early colitis. Patient was then discharged home on Augmentin and prednisone x7 days. Patient states he took medication as prescribed but had no relief of symptoms. He repres ented to the ED on 10/09 with similar symptoms and had repeat CT of abd/pelvis which showed no evidence of enteritis, overt colitis, or appendicitis. Reported the thickness of bowel ryan appears to be commensurate with the degree of their distention. Did find an area of minimal haziness of fat in the left lower pelvis suspected to be from epiploic appendagitis. Also found possible mild asymmetric left-sided sacroiliitis. Antibiotics were continued for an additional 7 days but symptoms persisted. Patient then presented [place] [facility] [place] on [place]10 where they did not repeat a CT scan of his abdomen, but he was treated with morphine and then discharged home on NSAIDs. Abdominal pain persisted today, and when he developed nausea and vomiting x4 episodes patient re-presented to the emergency room. Patient has a history of marijuana use, stating he usually smokes 2 joints daily, though has not smoked for 4+ weeks since he has been out of money. In the ED pt was afebrile but tachycardic up to 109, with soft BP of 126/59. Labs were significant for leukocytosis of 14.0 and C-reactive protein of 1.24, otherwise grossly unremarkable. Stable H&H. ESR WNL at 7. Coags unremarkable. No electrolyte abnormalities. Renal and hepatic function WNL. UA negative for UTI. Tested negative for COVID and influenza type a and B. Pt was treated with IVF, morphine, ondansetron, and droperidol. Pt will be admitted to the hospital for treatment and further evaluation of intractable abdominal pain with nausea and vomiting likely secondary to epiploic appendagitis. Hospital course: Patient came to the hospital with abdominal and rectal pain- pain is intermittent which seems to be associated with constipation and sometimes diarrhea - patient had CT scan and MRI done:ct scan reviewed by GI - proctalgia fugax or epiploic appendagitis,Patient was started on dicloxacillin, given laxatives, loperamide and small dose oxycodone for pain-alsomri -shows some improvement in above . Patient is currently asymptomatic, seems improved significantly. Patient's leukocytosis improved, no fever, C diff and gip panel negative, GI recommended defer antibiotics. Patient will be going home with dicycloamine, laxative, limited oxycodone supply also given. patient needs to follow up with pcp. plan : dicycloamine 20 mg qid prn docusate 100 mg daily loperamide prn for diarrahae patient is to follow-up with GI out patiently as well as PCP. Above management discussed with the patient in detail length he understand and in agreement with the above plan, time spent 50 minute. Time Attestation Discharge coordination time: Greater than 30 minutes Quality: Safe Use of Opioids Does Pt have an Active Cancer Diagnosis on the Problem List?: No Quality: Stroke Does the patient have a stroke diagnosis?: No Physical Exam Vital Signs: Vital Signs: Last Vital Signs Temp 97.0 F 10/17/23 07:16 Pulse 60 10/17/23 07:16 Resp 18 10/17/23 07:16 BP 124/73 10/17/23 07:16 Pulse Ox 98 10/17/23 07:16 O2 Del Method Room Air 10/17/23 07:16 O2 Flow Rate 98 10/12/23 08:00 BMI result Body Mass Index 37.2 Appearance: Alert.? Oriented X3.? not in distress.? cvs: rrr, [id number] , no murmur res: clear to auscultation ,no rhonchii or wheezing abd: no rebound or guarding ,nt, bs present. ext pulses present , no cyanosis . neuro: axo3 , nonfocal. DS: Data Imaging Chest x-ray: Radiologist's impression: ITS Impressions Pelvis MRI 10/16/23 11:24 IMPRESSION: 1. No perirectal or perianal abscess. No evidence of fistula. The previously seen subtle fat stranding in the pelvis abutting the rectosigmoid colon suggestive of epiploic appendicitis was no longer definitively discerned and may be intervally resolved or suboptimally evaluated given differences in modality. 2. Again seen asymmetric sclerosis along the left sacroiliac joint which can be seen in the setting of sacroiliitis. Discharge Plan Discharge Anticipated Discharge Date/Time: 10/17/23 09:35 Patient Disposition: Home, Self-Care Discharge Diagnosis: possible IBS/C Referrals: Physician,None [Primary Care Provider] - 1 Week Discharge Medications: New loperamide 2 mg Capsule 2 mg PO Q4H PRN (Reason: Diarrhea) Qty: 10 0RF docusate sodium 100 mg Capsule 100 mg PO DAILY PRN (Reason: Constipation) Qty: 30 0RF dicyclomine 10 mg Capsule 20 mg PO QIDACHS PRN (Reason: abd pain) Qty: 90 0RF oxycodone 5 mg Tablet 5 mg PO Q6H PRN (Reason: Pain, Mild (Pain Scale 1-3)) Qty: 10 0RF Rx Instructions: Partial Fill upon patient request. polyethylene glycol 3350 [Miralax] 17 gram/dose powder 17 g PO DAILY PRN (Reason: constipation) Qty: 119 0RF Continued acetaminophen 325 mg Tablet 650 mg PO Q4H PRN (Reason: Pain) ibuprofen 600 mg Tablet 600 mg PO Q6H PRN (Reason: Pain) hyoscyamine sulfate 0.125 mg Tablet 0.25 mg PO QID PRN (Reason: Abdominal Pain) prednisone 20 mg tablet 40 mg PO DAILY Qty: 10 0RF Discontinued amoxicillin-pot clavulanate 875-125 mg tablet 1 tab PO BID Qty: 14 0RF Discharge Orders: Discharge Order (Routine); Ordered 10/17/23 Ordered By: Katarina Donnelly Diet: Advance to usual diet Activity on Discharge: As tolerated Stand Alone Forms: Patient Portal Discharge page Care Plan Goals: Patient came to the hospital with abdominal and rectal pain- pain is intermittent which seems to be associated with constipation and sometimes diarrhea - patient had CT scan and MRI done:ct scan reviewed by GI - proctalgia fugax or epiploic appendagitis,Patient was started on dicloxacillin, given laxatives, loperamide and small dose oxycodone for pain-alsomri -shows some improvement in above . Patient is currently asymptomatic, seems improved significantly. Patient will be going home with dicycloamine, laxative, limited oxycodone supply also given. patient needs to follow up with pcp. Health Concerns: as above Plan of Treatment: as above. Assessment: as above.
--- NOTE | 2023-10-17 10:27 | MHC.CM.PN ---
pt dcd home no services
[2023-10-17 22:12] LABS: Calprotectin, Fecal 743 mcg/g
== END 2023-10-17 11:00 | disposition home or self-care (01) | DRG 254 ==
LOC: HO.ED 20:36 → HO.EDOVER 23:21 → HO.S3 10-12 07:45
PROVIDERS: Internal Medicine Gastroenterology; Admitting Provider Student in an Organized Health Care Education/Training Program; Emergency Provider Emergency Medicine Emergency Medical Services; Visit Provider Internal Medicine
DX: K58.1 Irritable bowel syndrome with constipation (principal); K59.4 Anal spasm; Z20.822 Contact with and (suspected) exposure to COVID-19; K63.89 Other specified diseases of intestine; Z87.891 Personal history of nicotine dependence; Z79.899 Other long term (current) drug therapy
CPT/HCPCS: 36415; 72197; 80048; 80053; 81001; 82550; 83690; 83993; 85025; 85027; 85610; 85652; 85730; 86140; 86850; 86900; 86901; 87493; 87502; 87507; 87635; 99285; A9585; C9113; J1650; J1790; J1885; J2270; J2405; J2765; J7120

== ENCOUNTER → 2023-10-11 23:06 | Outpatient (BNV) | payer OTHER, SELFPAY | PROVIDERS: Admitting Provider Student in an Organized Health Care Education/Training Program; Emergency Provider Emergency Medicine Emergency Medical Services; Visit Provider Internal Medicine Gastroenterology | DX: K62.89 Other specified diseases of anus and rectum (principal) | CPT/HCPCS: 99232 ==

== ENCOUNTER → 2023-10-11 23:06 | Outpatient (BNV) | payer OTHER, SELFPAY | PROVIDERS: Admitting Provider Student in an Organized Health Care Education/Training Program; Emergency Provider Emergency Medicine Emergency Medical Services; Visit Provider Student in an Organized Health Care Education/Training Program | DX: R10.9 Unspecified abdominal pain (principal) | CPT/HCPCS: 99223; 99232; 99239 ==

== ENCOUNTER 2023-10-18 10:53 | Outpatient (AMB) | payer OTHER, SELFPAY ==
--- NOTE | 2023-10-18 10:57 | MHC.PC.OV ---
Vital Signs 10/18/23 10:58 10/18/23 12:05 Height 5 ft 8 in Weight 244 lb BMI 37.1 BP 142/90 H Blood Pressure Location Rt brachial Position Sitting Respiration 14 Pulse 108 H 90 Pulse Source Pulse Oximeter Auscultation Temp 97.6 F Temp Source Temporal Artery Scan Pulse Oximetry (%) 99 Oxygen Delivery Method Room Air Intake Visit Reasons: est care Regional Sales Representative Required: No Accompanied by: Self / Same As Patient Allergies merida [cherries] Adverse Reaction (Verified 10/18/23 11:38) Gastrointestinal Upset Medication List - Last Reconciled 10/18/23 by Korin Butts, TECHNICIAN [employer]- dicyclomine 20 mg (2 x 10 mg) PO QIDACHS PRN docusate sodium 100 mg PO DAILY PRN hyoscyamine sulfate 0.25 mg PO QID PRN loperamide 2 mg PO Q4H PRN oxycodone 5 mg PO Q6H PRN polyethylene glycol 3350 (Miralax) 17 grams PO DAILY PRN Tobacco use date assessed: 10/18/23 Dental Screening Dental Screen Date: 10/18/23 Did you have a dental visit in the last 12 months?: No Did you have a dental problem in the last 6 months where you did not have access to dental care?: No Was dental information given to patient?: Yes HPI HPI Comments History of Present Illness Details Here today for HDF Admitted at [facility] [place] 10/11/23 through 10/17/23 Patient came to the hospital with abdominal and rectal pain- pain is intermittent which seems to be associated with constipation and sometimes diarrhea - patient had CT scan and MRI done:ct scan reviewed by GI - proctalgia fugax or epiploic appendagitis,Patient was started on dicloxacillin, given laxatives, loperamide and small dose oxycodone for pain-alsomri -shows some improvement in above . Patient is currently asymptomatic, seems improved significantly. Patient's leukocytosis improved, no fever, C diff and gip panel negative, GI recommended defer antibiotics. Patient will be going home with dicycloamine, laxative, limited oxycodone supply also given. New loperamide 2 mg Capsule 2 mg PO Q4H PRN (Reason: Diarrhea) Qty: 10 0RF docusate sodium 100 mg Capsule 100 mg PO DAILY PRN (Reason: Constipation) Qty: 30 0RF dicyclomine 10 mg Capsule 20 mg PO QIDACHS PRN (Reason: abd pain) Qty: 90 0RF oxycodone 5 mg Tablet 5 mg PO Q6H PRN (Reason: Pain, Mild (Pain Scale 1-3)) Qty: 10 0RF Rx Instructions: Partial Fill upon patient request. polyethylene glycol 3350 [Miralax] 17 gram/dose powder 17 g PO DAILY PRN (Reason: constipation) Qty: 119 0RF Pelvis MRI 10/16/23 11:24 IMPRESSION: 1. No perirectal or perianal abscess. No evidence of fistula. The previously seen subtle fat stranding in the pelvis abutting the rectosigmoid colon suggestive of epiploic appendicitis was no longer definitively discerned and may be intervally resolved or suboptimally evaluated given differences in modality. 2. Again seen asymmetric sclerosis along the left sacroiliac joint which can be seen in the setting of sacroiliitis. Presents today and reports that he does feel better. He is using the dicyclomine with positive effect.. Having a little pain but nothing like it used to be Low appetite. + constipation. Taking Colace, has not started MiraLax yet. Feels pain is worse at bedtime; taking oxy at bedtime. Has lost about 20 lb over the course of the last 4-6 weeks during his acute illness. Continues to report that he feels full and bloated and crampy after eating. No specific food triggers. Denies fever chills. Denies bloody stools. Would like to continue care with Dr. Mike home he saw at the hospital for a GI consult [facility] Medical History (Updated 10/18/23 @ 12:06 by Korin Butts [facility]) No pertinent past medical history Surgical History (Updated 10/18/23 @ 11:08 by Shannan Benavidez MA) No pertinent past surgical history Social History Household Members: Family Housing: House Do you presently have visiting nurse or other home services: No Patient Tobacco Use Status: Former Tobacco user Tobacco use type: Cigarette Cigarette Packs Per Day: 1 Cigarettes Per Day: 20 Years Smoked: 7 e-Cigarette/Vaping Use: Never Used Substance Use Type: Marijuana service: No Current occupational status: unemployed Cognitive needs: No Hearing needs: No Vision needs: No Questionnaire Thrive Questionnaire Date Thrive assessed: 10/12/23 Review of Systems Const All systems reviewed & are unremarkable except as noted in HPI and below Physical exam (Primary Care) Vital Signs: Last Vital Signs Temp 97.6 F 10/18/23 10:58 Pulse 90 10/18/23 12:05 Resp 14 10/18/23 10:58 BP 142/90 H 10/18/23 10:58 Pulse Ox 99 10/18/23 10:58 Oxygen Delivery Method Room Air 10/18/23 10:58 BMI result Body Mass Index 37.1 Tobacco/Smoking Status: Tobacco use Status Tobacco use date assessed 10/18/23 10/18/23 11:11 Patient Tobacco Use Status Former Tobacco user 10/18/23 11:11 Tobacco use type Cigarette 10/18/23 11:11 e-Cigarette/Vaping Use Never Used 10/18/23 11:11 Thrive Assessment: Date of Thrive Assessment Date Thrive assessed 10/12/23 10/18/23 11:11 Const Other: Alert oriented very pleasant Sclera is nonicteric Mucous membranes moist RRR Lung sounds clear to auscultation bilat No CVAT bilat Abdomen tender generally speaking, patient a little bit guarded during the exam, no peritoneal signs nontoxic appearing bowel sounds hyperactive x4 Assessment and Plan Assessment & Plan (1) Hospital discharge follow-up: Code(s): Z09 - Encounter for follow-up examination after completed treatment for conditions other than malignant neoplasm (2) 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 This has not been a problem for him based on review of records. Plan This note is constructed using voice recognition software. While every effort has been made to ensure accuracy in trapeze performer, still errors may have been included Sometimes, these errors may affect the content or meaning of the given sentence . Total time spent caring for the patient today was 37 minutes. This includes time spent before the visit reviewing the chart, time spent during the visit, and time spent after the visit on documentation Patient is doing better after his recent hospitalization however he continues to still have the abdominal pain. I have educated him on the use of MiraLax. He should take 1 capful tonight with at least 8 oz of water. He should titrate to effect. He can continue to take the Colace. Avoid him to discontinue the oxycodone as soon as possible as this can lead to constipation. I have placed a referral back to GI for follow-up. He wishes to continue with Dr. Mike or Dr. Gonzalez. However if they are not able to accommodate him he is okay with a referral to [facility] is GI office. I have also placed a referral to the dietitian as he has not really sure what he should or should not be eating with his disease process. He is also lost significant amount of weight in a short time. I have advised him to drink a high-protein supplement to help restore his protein stores and to help with the risk for malnutrition. I will bring him back in about 4-6 weeks for close follow-up sooner as needed Orders: Referrals Gastroenterology Referral K58.2 - Mixed irritable bowel syndrome, K59.4 - Anal spasm Nutrition/Dietitian Referral K58.2 - Mixed irritable bowel syndrome, K59.4 - Anal spasm, R10.9 - Unspecified abdominal pain, Z91.89 - Other specified personal risk factors, not elsewhere classified Patient Instructions: boost high protein or something like this Coding Level of Care Code New Pt Level 4 (22482) Diagnoses Hospital discharge follow-up Z09 Proctalgia fugax K59.4 Irritable bowel syndrome with both constipation and diarrhea K58.2 At risk for malnutrition Z91.89 Elevated systolic blood pressure reading without diagnosis of hypertension R03.0
[2023-10-18 10:58] VITALS: BP 142/90; PULSE 108; RESP 14; TEMP 36.4; O2SAT 99; BMI 37.1
[2023-10-18 12:05] VITALS: PULSE 90
== END 2023-10-18 11:50 | disposition home or self-care (01) ==
PROVIDERS: PCP Nurse Practitioner Family; Visit Provider Nurse Practitioner Family
DX: Z09 Encounter for follow-up examination after completed treatment for conditions other than malignant neoplasm (principal); K59.4 Anal spasm; K58.2 Mixed irritable bowel syndrome; Z91.89 Other specified personal risk factors, not elsewhere classified; R03.0 Elevated blood-pressure reading, without diagnosis of hypertension
CPT/HCPCS: 99204

== ENCOUNTER 2023-11-08 09:58 | Outpatient (AMB) | payer OTHER, SELFPAY ==
--- NOTE | 2023-11-08 10:01 | MHC.PC.OV ---
Vital Signs 11/08/23 10:16 Height 5 ft 8 in Weight 250 lb BMI 38.0 BP 146/81 H Blood Pressure Location Rt brachial Position Sitting Respiration 14 Pulse 119 H Pulse Source Pulse Oximeter Temp 100.0 F Temp Source Temporal Artery Scan Pulse Oximetry (%) 97 Oxygen Delivery Method Simple Mask Intake Visit Reasons: 3week follow up Intake Note: Patient would like to be seen for fever, vomiting and taste of blood in his mouth x7 days. Patient is requesting medication refills. Goldbeater Required: No Accompanied by: Self / Same As Patient Allergies merida [cherries] Adverse Reaction (Verified 11/08/23 10:28) Gastrointestinal Upset Medication List - Last Reconciled 11/08/23 by Korin Butts, REPLANTING [employer]ACH[employer]- dicyclomine 20 mg (2 x 10 mg) PO QIDACHS PRN docusate sodium 100 mg PO DAILY PRN loperamide 2 mg PO Q4H PRN oxycodone 5 mg PO Q6H PRN polyethylene glycol 3350 (Miralax) 17 grams PO DAILY PRN Tobacco use date assessed: 10/18/23 HPI HPI Comments History of Present Illness Details Here today w/ Fever, chills, vomiting, rectal pain acute on chronic started about 7 days ago taste of pennies in mouth denies overt blood in emesis stool or urine cannot tolerate po medications Next week f/u with Dr Mike Medical hx relative to this: Admitted at [facility] [place] 10/11/23 through 10/17/23 Patient came to the hospital with abdominal and rectal pain- pain is intermittent which seems to be associated with constipation and sometimes diarrhea - patient had CT scan and MRI done:ct scan reviewed by GI - proctalgia fugax or epiploic appendagitis,Patient was started on dicloxacillin, given laxatives, loperamide and small dose oxycodone for pain-alsomri -shows some improvement in above . Patient is currently asymptomatic, seems improved significantly. Patient's leukocytosis improved, no fever, C diff and gip panel negative, GI recommended defer antibiotics. Patient will be going home with dicycloamine, laxative, limited oxycodone supply also given. New loperamide 2 mg Capsule 2 mg PO Q4H PRN (Reason: Diarrhea) Qty: 10 0RF docusate sodium 100 mg Capsule 100 mg PO DAILY PRN (Reason: Constipation) Qty: 30 0RF dicyclomine 10 mg Capsule 20 mg PO QIDACHS PRN (Reason: abd pain) Qty: 90 0RF oxycodone 5 mg Tablet 5 mg PO Q6H PRN (Reason: Pain, Mild (Pain Scale 1-3)) Qty: 10 0RF Rx Instructions: Partial Fill upon patient request. polyethylene glycol 3350 [Miralax] 17 gram/dose powder 17 g PO DAILY PRN (Reason: constipation) Qty: 119 0RF Pelvis MRI 10/16/23 11:24 IMPRESSION: 1. No perirectal or perianal abscess. No evidence of fistula. Thepreviously seen subtle fat stranding in the pelvis abutting the rectosigmoid colon suggestive of epiploic appendicitis was no longer definitively discerned and may be intervally resolved or suboptimally evaluated given differences in modality. 2. Again seen asymmetric sclerosis along the left sacroiliac jointwhich can be seen in the setting of sacroiliitis. [facility] Medical History (Updated 11/08/23 @ 11:00 by Korin Butts [facility]) No pertinent past medical history Surgical History (Updated 10/18/23 @ 11:08 by Shannan Benavidez MA) No pertinent past surgical history Social History Household Members: Family Housing: House Do you presently have visiting nurse or other home services: No Patient Tobacco Use Status: Former Tobacco user Tobacco use type: Cigarette Cigarette Packs Per Day: 1 Cigarettes Per Day: 20 Years Smoked: 7 e-Cigarette/Vaping Use: Never Used Substance Use Type: Marijuana service: No Current occupational status: unemployed Cognitive needs: No Hearing needs: No Vision needs: No Questionnaire Thrive Questionnaire Date Thrive assessed: 10/12/23 Review of Systems Const All systems reviewed & are unremarkable except as noted in HPI and below Physical exam (Primary Care) Vital Signs: Last Vital Signs Temp 100.0 F 11/08/23 10:16 Pulse 119 H 11/08/23 10:16 Resp 14 11/08/23 10:16 BP 146/81 H 11/08/23 10:16 Pulse Ox 97 11/08/23 10:16 Oxygen Delivery Method Simple Mask 11/08/23 10:16 BMI result Body Mass Index 38.0 Tobacco/Smoking Status: Tobacco use Status Tobacco use date assessed 10/18/23 11/08/23 10:01 Patient Tobacco Use Status Former Tobacco user 11/08/23 10:01 Tobacco use type Cigarette 11/08/23 10:01 e-Cigarette/Vaping Use Never Used 11/08/23 10:01 Thrive Assessment: Date of Thrive Assessment Date Thrive assessed 10/12/23 11/08/23 10:01 Const Other: Alert oriented very pleasant, mildly ill appearing Sclera is nonicteric Mucous membranes dry, pharynx + erythema tachycardic Lung sounds clear to auscultation bilat Abdomen tender generally speaking worse over LUQ, guarded during the exam, hypoactive BS x 4 quads diaphoretic Results AMB Rapid Strep AMB Rapid Strep Negative Last Edit by Debi Latham CMA on 11/08/23 10:44 Assessment and Plan Assessment & Plan (1) Irritable bowel syndrome with both constipation and diarrhea: Code(s): K58.2 - Mixed irritable bowel syndrome (2) Proctalgia fugax: Code(s): K59.4 - Anal spasm (3) Rectal pain: Code(s): K62.89 - Other specified diseases of anus and rectum (4) Abdominal pain: Comment: Call placed to Dr. Mike. Case discussed with him. Recommends repeat labs and imaging given presentation today. Would benefit from a clean out and repeat scope for further evaluation and treatment Patient advised to go to [facility] Emergency room. I did call the expect line. Report given to Olivia. Patient advised not to eat or drink and go directly to emergency room. He is going via private vehicle. I asked him to follow with me after discharge. Rapid strep done just given the erythema noted on his exam today. This was negative. Erythema is either related to the vomiting. This note is constructed using voice recognition software. While every effort has been made to ensure accuracy in wooling machine operator, still errors may have been included Sometimes, these errors may affect the content or meaning of the given sentence . Total time spent caring for the patient today was 50 minutes. This includes time spent before the visit reviewing the chart, time spent during the visit, and time spent after the visit on documentation Code(s): R10.9 - Unspecified abdominal pain Qualifiers: Abdominal location: generalized Qualified Code(s): R10.84 - Generalized abdominal pain Orders: Orders AMB Rapid Strep Screen Today Z13.9 - Encounter for screening, unspecified Coding Level of Care Code Est Pt Level 5 (45024) Diagnoses Irritable bowel syndrome with both constipation and diarrhea K58.2 Proctalgia fugax K59.4 Rectal pain K62.89 Generalized abdominal pain R10.84 Abdominal location: generalized
[2023-11-08 10:16] VITALS: BP 146/81; PULSE 119; RESP 14; TEMP 37.8; O2SAT 97; BMI 38.0
== END 2023-11-08 10:45 | disposition home or self-care (01) ==
PROVIDERS: PCP Nurse Practitioner Family; Visit Provider Nurse Practitioner Family
DX: K58.2 Mixed irritable bowel syndrome (principal); K59.4 Anal spasm; K62.89 Other specified diseases of anus and rectum; R10.84 Generalized abdominal pain; R50.9 Fever, unspecified
CPT/HCPCS: 87880; 99215

== ENCOUNTER 2023-11-08 11:12 | Inpatient (IN) | payer OTHER, SELFPAY ==
[2023-11-08] VITALS (9 sets, daily range): BP systolic 107–155; BP diastolic 50–89; PULSE 107–134; RESP 18–21; TEMP 36.2–38.4; O2SAT 95–100; BMI 38.0; BMI 20.3
--- NOTE | ~2023-11-08 | CT_ITS ---
EXAMINATION: CT ABDOMEN AND PELVIS WITH CONTRAST CLINICAL INFORMATION: Peritoneal signs. COMPARISON: None available. TECHNIQUE: Multidetector volumetric images were obtained from the superior aspect of the liver through the pubic symphysis following administration 85 mL of Omnipaque 350 intravenous contrast. Sagittal and coronal reformatted images were obtained on the technologist's workstation. Oral contrast: No This CT examination was performed using dose optimization techniques as appropriate, variously including the following: *Automated exposure control *Adjustment of mA and/or kV according to patient size (this includes techniques or standardized protocols for targeted exams where dose is matched to indication/reason for exam; i.e. extremities or head) *Use of iterative reconstruction technique DLP: 876 mGy-cm FINDINGS: Exam is closer to the equilibrium phase than the portal venous phase. LUNG BASES: The visualized lung bases are unremarkable. LIVER, GALLBLADDER, AND BILIARY TREE: The liver is normal in size, shape, and attenuation. No focal hepatic lesion or biliary ductal dilatation is present. The gallbladder is unremarkable with no evidence of radiopaque gallstones, gallbladder wall thickening, or obvious pericholecystic inflammatory changes. PANCREAS: No visible mass or ductal dilatation. No CT evidence of pancreatitis. SPLEEN: Unremarkable. ADRENAL GLANDS: Unremarkable. KIDNEYS AND URETERS: Medullary phase imaging. No nephrolithiasis or hydronephrosis. No suspicious renal mass visible. BLADDER: Unremarkable. GASTROINTESTINAL TRACT: The small and large bowel are normal in caliber. No visible wall thickening. The appendix appears normal with no evidence of acute appendicitis. No visible fluid collection. I do not appreciate any free air. ABDOMINAL WALL: Small fat-containing umbilical hernia. LYMPH NODES: No adenopathy. VASCULAR: No aortic aneurysm. No iliocaval DVT. PELVIC VISCERA: Unremarkable. OSSEOUS STRUCTURES: Unchanged subarticular sclerosis of the left sacroiliac joint. CT/CT abdomen pelvis w IV con IMPRESSION: No acute findings to correlate with clinical indication of peritoneal signs. No visible free air.
--- NOTE | ~2023-11-08 | XR_ITS ---
EXAMINATION: XR CHEST CLINICAL INFORMATION: Fever COMPARISON: None available. TECHNIQUE: 2 views of the chest were obtained. FINDINGS: No significant abnormality is noted involving the heart, lungs, mediastinum, bony thorax or soft tissues. XR/XR chest 2V IMPRESSION: Unremarkable examination.
--- NOTE | 2023-11-08 11:30 | ED_ITS ---
HPI - Nausea/Vomiting/Diarrhea General Chief complaint: Abdominal Pain Stated complaint: abd pain high bp Time Seen by Provider: 11/08/23 12:39 Source: patient and family (mother) Mode of arrival: ambulatory Limitations: no limitations History of Present Illness HPI Narrative: 28 year old male with pmhx significant for IBS with constipation and diarrhea, cannabis use disorder, and cyclical vomiting syndrome, presents to the ED this morning from PCP for evaluation of fever, elevated HR, N/V and diffuse abdominal pain x2 weeks. Endorses multiple episodes of vomiting. Fever of 101 at home. His main complaint is abdominal pain. Can not localize pain, states it is diffuse. Denies sick contacts. Denies sore throat, cough, sputum production, chest pain, shortness of breath, wheezing, hematemesis, constipation, diarrhea, dysuria, hematuria. Admits to marijuana use daily. Related Data Home Medications Medication Instructions Recorded Confirmed acetaminophen 500 mg tablet 1,000 mg PO Q6H PRN Pain 11/08/23 11/08/23 (Acetaminophen Extra Strength) Previous Rx's Medication Instructions Recorded dicyclomine 10 mg capsule 20 mg (2 x 10 mg) PO QIDACHS PRN 10/17/23 abd pain #90 caps docusate sodium 100 mg capsule 100 mg PO DAILY PRN Constipation 10/17/23 #30 caps polyethylene glycol 3350 17 17 g PO DAILY PRN constipation 10/17/23 gram/dose oral powder (Miralax) #119 grams Allergies Allergy/AdvReac Type Severity Reaction Status Date / Time merida [cherries] AdvReac Gastrointestinal Verified 11/08/23 10:28 Upset Review of Systems 2 Review of Systems: Constitutional: No chills, fatigue, night sweats, weight changes, +fever ENT/Mouth: No ear pain, hearing loss, nasal congestion, sinus pain, rhinorrhea, sore throat Eyes: No eye pain, swelling, redness, vision changes, discharge Cardio: No chest pain, palpitations, OSPINA, orthopnea, peripheral edema Pulm: No SOB, cough, sputum, wheezing, dyspnea, hemoptysis GI: No hematemesis, diarrhea, constipation, hematochezia, melena, +abdominal pain, +nausea, +vomiting : No irregular bleeding, dysuria, frequency, urgency, hesitancy, hematuria, flank pain, urinary flow changes, urinary incontinence or retention MSK: No back pain, neck pain, joint pain, myalgias Skin: No lesions, rashes Neuro: No weakness, numbness, paresthesias, LOC, dizziness, headache Psych: No anxiety/panic, depression, SI/HI, AH/VH All other systems reviewed and are negative. [facility]LY [facility] Past Medical History Attestation statement: The following information was validated with the patient. Source: old records reviewed and nursing notes reviewed Medical History No pertinent past medical history Surgical History No pertinent past surgical history Social History Social History Household Members: Family Housing: House Do you presently have visiting nurse or other home services: No Patient Tobacco Use Status: Former Tobacco user Tobacco use type: Cigarette Cigarette Packs Per Day: 1 Cigarettes Per Day: 20 Years Smoked: 7 Smoked in Last 30 Days: No e-Cigarette/Vaping Use: Never Used Use of substances other than those prescribed or required for medical reasons: Yes Substance Use Type: Marijuana Advance Directives: No service: No Current occupational status: unemployed Cognitive needs: No Hearing needs: No Vision needs: No Physical Exam 2 Vital Signs: Vital Signs: Last Vital Signs Temp 100.1 F 11/08/23 15:57 Pulse 113 H 11/08/23 15:57 Resp 21 H 11/08/23 15:57 BP 121/71 11/08/23 15:57 Pulse Ox 99 11/08/23 15:57 O2 Del Method Room Air 11/08/23 15:57 BMI result Body Mass Index 38.0 Patient hypertensive, tachycardic, febrile Const: Other: + visibly uncomfortable, grabbing at abd omen, diaphoretic General: cooperative Orientation/consciousness: patient oriented x3 L imitations: no limitations HEENT: Head: Yes normal to inspection, Yes No palpable skull fracture present, Yes normocephalic and Yes atraumatic Eyes: General: appearance normal, both eyes and all related structures C onjunctivae: conjunctivae normal Sclerae: sclerae normal Pupils: Equal, round and reactive pupils present Neck: Neck: Yes normal visual inspection and Yes no lymphadenopathy Resp: Effort & Inspection: normal respiratory effort and able to speak in complete sentences Auscultation: clear to auscultation bilaterally Cardio: Jugular venous distension: no JVD Rate: tachycardic Rhythm: r egular rhythm Peripheral pulses: Peripheral pulses 2+ throughout GI: Other: + abdomen soft, diffusely tender to palp ation, nondistended, patient guarding, no rebound tenderness. Normoactive bowel sounds x4. : General: Yes no CVA tenderness Back/Spine/Pelvis: Back: no CVA tenderness Skin: General skin exam: no rashes or lesions noted Neuro: General: patient oriented x3 Cranial nerves: Yes Equal, round and reactive pupils present Extrem: General: Yes normal to inspection Psych: Appearance: grossly normal Course Course Course Narrative: RMNatasha: 28 year-old M w/ PMHx colitis, remote hx UC, presenting to the ED c/o upper abdominal pain, N/V, decreased PO intake x2 wks. sent in from UC. Patient recently discharged from our facility on 10/17 for acute colitis 101.1 temporally, tachycardic Labs, UA, viral studies, lactic/blood cultures ordered Full HPI, ROS and PE to be performed by primary ED provider. Reevaluation(s) Reevaluation #1: 1251-- Patient hypertensive, tachycardic and febrile on arrival > sepsis alert called from triage at 1150. He is receiving IV zosyn. > labs showing leukocytosis to 12.8 with left shift. No acute electrolyte abnormalities requiring intervention. Lactic of 2.6. Patient receiving IVF. CRP elevated to 2.43 Source of infection is unknown at this time. Awaiting UA and viral swabs along with CT abdomen/pelvis. 1539-- patient has tested positive for influenza. Tamiflu ordered however patient continues to vomit, even after receiving IV zofran so will hold. UA without infection. Repeat lactic 2.5. CT abdomen/pelvis unremarkable. Chest x- ray unremarkable. > given patient has influenza and is septic, I suspect viral sepsis. Discussed admission with Dr. Currie who has accepted admission. Medications Administered Discontinued Medications Generic Name Dose Route Start Last Admin Trade Name Freq PRN Reason Stop Dose Admin Sodium Chloride 1,000 mls @ 999 mls/hr 11/08/23 11:45 11/08/23 12:49 Ns IV 11/08/23 12:45 Infused .Q1H1M YADIRA Infusion Piperacillin Sod/Tazobactam 50 mls @ 100 mls/hr 11/08/23 11:38 11/08/23 12:36 Sod 3.375 gm/ Sodium Chloride IV 11/08/23 12:07 Infused ONCE ONE Infusion Sodium Chloride 3,399 mls @ 3,399 mls/hr 11/08/23 12:46 11/08/23 15:33 Ns 30 ml/kg infuse over 1 hr (3399 ml) 11/08/23 13:45 Infused IV Infusion .Q1H STA Iohexol 100 ml 11/08/23 13:32 11/08/23 13:33 Iohexol 350 Mg/Ml 100 Ml Infus..Btl IV 11/08/23 13:33 85 ml ONCE ONE Administration Ketorolac Tromethamine 15 mg 11/08/23 11:37 11/08/23 11:57 Ketorolac Tromethamine 15 Mg/Ml Vial IVPUSH 11/08/23 11:38 15 mg ONCE ONE Administration Morphine Sulfate 4 mg 11/08/23 12:48 11/08/23 12:52 Morphine Sulfate 4 Mg/Ml Cartridge IVPUSH 11/08/23 12:49 4 mg ONCE ONE Administration Protocol Morphine Sulfate 4 mg 11/08/23 14:29 11/08/23 14:38 Morphine Sulfate 4 Mg/Ml Cartridge IVPUSH 11/08/23 14:30 4 mg ONCE ONE Administration Protocol Ondansetron HCl 4 mg 11/08/23 14:29 11/08/23 14:38 Ondansetron Hcl 4 Mg/2 Ml Vial IVPUSH 11/08/23 14:30 4 mg ONCE ONE Administration Oseltamivir Phosphate 75 mg 11/08/23 14:48 11/08/23 15:32 Oseltamivir Phosphate 75 Mg Capsule PO 11/08/23 14:49 75 mg ONCE ONE Administration Medical Decision Making Medical Decision Making MDM Narrative: 28 year old male with pmhx significant for IBS with constipation and diarrhea, cannabis use disorder, and cyclical vomiting syndrome, presents to the ED this morning from PCP for evaluation of fever, elevated HR, N/V and diffuse abdominal pain x2 weeks. Patient initially hypertensive, tachycardic, febrile to 101.1 F. toxic appearing. diaphoretic. Grabbing at his stomach, visibly uncomfortable. Emesis bag at bedside. Abdomen is diffusely tender to palpation. Patient is guarding and wincing in pain. No rebound tenderness. Normoactive bowel sounds x4. Lungs are CTA b/l. No rashes. Clinical concern for acute abdomen, appendicitis, cholecystitis, pancreatitis, cyclical vomiting syndrome, cannabis use disorder, gastroenteritis, viral syndrome, urinary tract infection, dehydration, electrolyte abnormality, anemia. Lower suspicion for SBO, ischemic bowel, diverticulitis, constipation. Plan for labs, lactic, EKG, chest x-ray, viral swabs, CT abdomen/pelvis, UA, pain control and re-evaluation. Differential Diagnosis Differential Diagnoses: The differential diagnosis associated with the presentation includes As above Admission/Observation Consideration of admission/observation: Escalation of care including admission/observation considered Patient to be admitted to medicine for viral sepsis. Dr. Currie to put in admission orders. Consult Healthcare Provider Management of the patient was discussed with: Hospitalist (Dr. Currie) Lab Data MDM Lab Attestation statement: I reviewed the patient's lab results. As above. 11/08/23 11:52 11/08/23 11:52 Labs: Lab Results 11/08/23 11/08/23 11/08/23 Range/Units 11:52 12:00 12:57 WBC 12.8 H (4.8-10.8) X10*3/uL RBC 5.70 (4.60-5.80) X10*6/uL Hgb 15.1 (14.0-18.0) g/dl Hct 45.4 (42.0-52.0) % MCV 79.6 L (80.0-98.0) fL MCH 26.5 L (27.0-33.0) pg MCHC 33.3 (31.0-36.0) g/dl RDW 13.1 (11.0-16.0) % Plt Count 407 H (160-400) X10*3/uL MPV 10.2 (9.4-12.4) fL Immature Gran % (Auto) 0.3 (0.0-0.4) % Neut % (Auto) 92.7 H (45-73) % Lymph % (Auto) 2.3 L (20-40) % [place] % (Auto) 3.8 (2-11) % Eos % (Auto) 0.5 (0-4) % Baso % (Auto) 0.4 (0-2) % Lymph # (Auto) 0.3 L (1.2-4.9) X10*3/uL [place] # (Auto) 0.5 (0.1-1.2) X10*3/uL Eos # (Auto) 0.1 (0.0-0.4) X10*3/uL Baso # (Auto) 0.1 (0.0-0.2) X10*3/uL Abs Immat Gran (auto) 0.04 H (0.00-0.03) X10*3/uL Absolute Neuts (auto) 11.8 H (2.0-8.3) x10*3/uL Absolute Nucleated RBC 0.000 (0.0-0.012) X10*3/uL Nucleated RBC % (auto) 0.0 (0.0-0.2) /100WBC Smear Tech's Comments VERIFIED Hold Purple Top SEE NOTE PT 13.8 H (11.1-13.3) SEC INR 1.1 (0.9-1.1) Sodium 139 (135-145) mmol/L Potassium 3.5 (3.3-5.1) mmol/L Chloride 105 (96-108) mmol/L Carbon Dioxide 23 (22-29) mmol/L Anion Gap 15 (12-20) BUN 8 L (9-16) mg/dL Creatinine 0.84 (0.5-1.4) mg/dL Estim Creat Clear Calc 161.3 Estimated GFR > 60 Random Glucose 129 H (60-115) mg/dL Lactic Acid 2.6 H* (0.5-2.0) mmol/L Lactic Acid F/U @ 2Hr (0.5-2.0) mmol/L Calcium 10.1 D (8.4-10.2) mg/dL Magnesium 1.7 (1.6-2.6) mg/dL Total Bilirubin 0.7 (0.0-1.0) mg/dL Direct Bilirubin 0.2 (0.0-0.5) mg/dL AST 22 (5-37) U/L ALT 39 (0-40) U/L Alkaline Phosphatase 101 (39-117) U/L Total Creatine Kinase 76 (38-174) U/L C-Reactive Protein 2.43 H (< or = 0.50) mg/dL Total Protein 8.5 H (6.5-8.0) g/dL Albumin 4.9 (3.5-5.0) g/dL Lipase 12 (8-78) U/L Urine Color Yellow Urine Appearance Clear Urine pH 6.5 (5.0-9.0) Ur Specific [place] 1.010 (1.005-1.025) Urine Protein Negative (Neg-Trace) mg/dL Urine Glucose (UA) Negative (Negative) mg/dL Urine Ketones Negative (Negative) mg/dL Urine Blood Negative (Negative) Urine Nitrite Negative (Negative) Ur Leukocyte Esterase Negative (Negative) Influenza Type A (PCR) POSITIVE A (Negative) Influenza Type B (PCR) NEGATIVE (Negative) RSV RNA Qual (PCR) NEGATIVE (Negative) SARS-CoV-2 RNA (RT-PCR) NEGATIVE (Negative) 11/08/23 Range/Units 14:19 WBC (4.8-10.8) X10*3/uL RBC (4.60-5.80) X10*6/uL Hgb (14.0-18.0) g/dl Hct (42.0-52.0) % MCV (80.0-98.0) fL MCH (27.0-33.0) pg MCHC (31.0-36.0) g/dl RDW (11.0-16.0) % Plt Count (160-400) X10*3/uL MPV (9.4-12.4) fL Immature Gran % (Auto) (0.0-0.4) % Neut % (Auto) (45-73) % Lymph % (Auto) (20-40) % [place] % (Auto) (2-11) % Eos % (Auto) (0-4) % Baso % (Auto) (0-2) % Lymph # (Auto) (1.2-4.9) X10*3/uL [place] # (Auto) (0.1-1.2) X10*3/uL Eos # (Auto) (0.0-0.4) X10*3/uL Baso # (Auto) (0.0-0.2) X10*3/uL Abs Immat Gran (auto) (0.00-0.03) X10*3/uL Absolute Neuts (auto) (2.0-8.3) x10*3/uL Absolute Nucleated RBC (0.0-0.012) X10*3/uL Nucleated RBC % (auto) (0.0-0.2) /100WBC Smear Tech's Comments Hold Purple Top PT (11.1-13.3) SEC INR (0.9-1.1) Sodium (135-145) mmol/L Potassium (3.3-5.1) mmol/L Chloride (96-108) mmol/L Carbon Dioxide (22-29) mmol/L Anion Gap (12-20) BUN (9-16) mg/dL Creatinine (0.5-1.4) mg/dL Estim Creat Clear Calc Estimated GFR Random Glucose (60-115) mg/dL Lactic Acid (0.5-2.0) mmol/L Lactic Acid F/U @ 2Hr 2.5 H* (0.5-2.0) mmol/L Calcium (8.4-10.2) mg/dL Magnesium (1.6-2.6) mg/dL Total Bilirubin (0.0-1.0) mg/dL Direct Bilirubin (0.0-0.5) mg/dL AST (5-37) U/L ALT (0-40) U/L Alkaline Phosphatase (39-117) U/L Total Creatine Kinase (38-174) U/L C-Reactive Protein (< or = 0.50) mg/dL Total Protein (6.5-8.0) g/dL Albumin (3.5-5.0) g/dL Lipase (8-78) U/L Urine Color Urine Appearance Urine pH (5.0-9.0) Ur Specific [place] (1.005-1.025) Urine Protein (Neg-Trace) mg/dL Urine Glucose (UA) (Negative) mg/dL Urine Ketones (Negative) mg/dL Urine Blood (Negative) Urine Nitrite (Negative) Ur Leukocyte Esterase (Negative) Influenza Type A (PCR) (Negative) Influenza Type B (PCR) (Negative) RSV RNA Qual (PCR) (Negative) SARS-CoV-2 RNA (RT-PCR) (Negative) Independent Interpretation I performed an independent interpretation of an: EKG, Plain X-Ray and CT Scan Interpretation: I personally reviewed patient's chest x-ray and agree with radiologist's interpretation. I personally reviewed CT scan and agree with radiologist's interpretation. EKG showing sinus tachycardia at a rate of 126 beats per minute, QT to 98, QTC 431, no acute ischemic changes or ST elevations. Radiology Impression Discussion of test interpretation with radiology: I have reviewed the radiologist's reading. Radiologist Impression: XR chest 2V IMPRESSION: Unremarkable examination. CT abdomen pelvis w IV con IMPRESSION: No acute findings to correlate with clinical indication of peritoneal signs. No visible free air. Independent Historian Clinical information obtained from an independent historian. History obtained from or confirmed by: Parent (mother) External Record Review External record reviewed: Inpatient record, Office record, Outpatient record, Prior outpatient labs, Prior outpatient radiology, Primary care record and Outside ED record Prescription Management I considered prescription management with: Pain Medication, Antiviral and Antibiotic Chronic Conditions Patient?s care impacted by: Other (Cannabis use disorder, cyclical vomiting syndrome) Social Determinants Patient?s care significantly limited by Social Determinants of Health including: Other Social Determinant of Health Critical Care Time Critical Care Time Critical Care Time: Yes Total Critical Care Time: 65 Attestation: Critical care time in the amount of 65 minutes has been provided to the patient in terms of direct patient care, frequent reevaluation on IV morphine and IV dilaudid, consultation with hospitalist, review and interpretation of medical data and results, and management of potentially life-threatening conditions. This is all outside of any medical procedures. Discharge Plan Discharge Clinical Impression: Influenza A, Sepsis, Cyclical vomiting Patient Disposition: Admitted As Inpatient
--- NOTE | 2023-11-08 11:33 | ECG_ITS ---
Test Reason : TACHYCARDIA Blood Pressure : / mmHG Vent. Rate : 126 BPM Atrial Rate : 126 BPM P-R Int : 134 ms QRS Dur : 078 ms QT Int : 298 ms P-R-T Axes : 056 064 026 degrees QTc Int : 431 ms Sinus tachycardia Otherwise normal ECG No previous ECGs available Referred By: Cristy Gómez Electronically Signed By:OPAL MOCTEZUMA MD
--- NOTE | 2023-11-08 11:47 | PC.NURSE ---
Pt is alert and oriented, states diffuse abd pain intermittently x 1 month with nausea and vomiting, reports constipation but states last BM this AM. Also reporting rectal pain with improving hemorrhoid since using RX given on last admission here, denies any rectal bleeding. +Bowel sounds x 4 quads. mother at bedside. IV established labs to be sent
[2023-11-08] MEDS: Ketorolac Tromethamine 15 MG/ML VIAL IVPUSH (11:57)
[2023-11-08] MEDS: 0.9 % Sodium Chloride 1,000 ML 999 ML IV (11:57)
--- NOTE | 2023-11-08 11:58 | PC.NURSE ---
pt changed over into hospital attire shelter monitor applied,pt noted to be tachycardic 128-130. 20G PIV placed in L-AC, labs and blood cultures obtained. Tech at bedside conducting EKG.
[2023-11-08] MEDS: Piperacillin Sodium/Tazobactam 3.375 GM in 0.9 % Sodium Chloride 50 ML IV (12:01)
--- NOTE | 2023-11-08 12:04 | PC.NURSE ---
pt placed q15m B/P
[2023-11-08 12:06] LABS: Basophils Absolute Auto 0.1 X10*3/uL (0.0-0.2); Basophils Percent Auto 0.4 % (0-2); Eosinophils Absolute Auto 0.1 X10*3/uL (0.0-0.4); Eosinophils Percent Auto 0.5 % (0-4); Hematocrit 45.4 % (42.0-52.0); Hemoglobin 15.1 g/dl (14.0-18.0); Imm Gran Abs Auto 0.04 X10*3/uL (0.00-0.03); Imm Gran Pct Auto 0.3 % (0.0-0.4); Lymphocytes Absolute Auto 0.3 X10*3/uL (1.2-4.9); Lymphocytes Percent Auto 2.3 % (20-40); MANUAL DIFF FLAG SCAN; Mean Corpuscular HGB Conc 33.3 g/dl (31.0-36.0); Mean Corpuscular Hemoglobin 26.5 pg (27.0-33.0); Mean Corpuscular Volume 79.6 fL (80.0-98.0); Mean Platelet Volume 10.2 fL (9.4-12.4); Monocytes Absolute Auto 0.5 X10*3/uL (0.1-1.2); Monocytes Percent Auto 3.8 % (2-11); Neutrophils Absolute Auto 11.8 x10*3/uL (2.0-8.3); Neutrophils Percent Auto 92.7 % (45-73); Platelet Count 407 X10*3/uL (160-400); Red Cell Distribution Width 13.1 % (11.0-16.0); SCAN SMEAR FLAG 1; White Blood Count 12.8 X10*3/uL (4.8-10.8)
[2023-11-08 12:14] LABS: INTERNATIONAL NORM RATIO 1.1 (0.9-1.1); Prothrombin Time 13.8 SEC (11.1-13.3)
[2023-11-08 12:18] LABS: Alanine Aminotransferase 39 U/L (0-40); Albumin Level 4.9 g/dL (3.5-5.0); Alkaline Phosphatase 101 U/L (39-117); Anion Gap 15 (12-20); Aspartate Amino Transferase 22 U/L (5-37); Bilirubin Direct 0.2 mg/dL (0.0-0.5); Bilirubin Total 0.7 mg/dL (0.0-1.0); Blood Urea Nitrogen 8 mg/dL (9-16); C Reactive Protein 2.43 mg/dL (< or = 0.50); Calcium 10.1 mg/dL (8.4-10.2); Carbon Dioxide 23 mmol/L (22-29); Chloride 105 mmol/L (96-108); Creatinine Clr Calc Pharmacy 161.3; Estimated Glomerular Filt Rate > 60; Glucose Random 129 mg/dL (60-115); Lipase 12 U/L (8-78); Magnesium 1.7 mg/dL (1.6-2.6); Potassium 3.5 mmol/L (3.3-5.1); Sodium 139 mmol/L (135-145); Total Protein 8.5 g/dL (6.5-8.0)
[2023-11-08 12:19] LABS: Lactic Acid 2.6 mmol/L (0.5-2.0)
[2023-11-08 12:28] LABS: SLIDE REVIEW VERIFIED
--- NOTE | 2023-11-08 12:37 | PC.NURSE ---
Pt reports no change in pain at this time s/p Toradol given, awaiting ED provider. ABX completed
[2023-11-08] MEDS: Morphine Sulfate 4 MG/ML CARTRIDGE IVPUSH ×4 (12:52→22:31)
[2023-11-08 12:56] LABS: Influenza A PCR POSITIVE (Negative); Influenza B PCR NEGATIVE (Negative); Resp Syncy Virus RNA Qual PCR NEGATIVE (Negative); SARS COV2 PCR INHOUSE NEGATIVE (Negative)
[2023-11-08 13:06] LABS: Appearance Urine Clear; Color Urine Yellow; Glucose Urine UA Negative (Negative); Leukocyte Esterase Urine Negative (Negative); Nitrite Urine Negative (Negative); PH 6.5 (5.0-9.0); Urine Blood Negative (Negative); Urine Ketones Negative (Negative); Urine Protein Negative (Neg-Trace)
--- NOTE | 2023-11-08 13:12 | PC.NURSE ---
pt taken to CT scan.
[2023-11-08] MEDS: iohexoL 350 MG/ML 100 ML INFUS..BTL IV (13:33)
[2023-11-08 14:00] LABS: Reflex Lactate? Lactic Acid Added
[2023-11-08 14:38] LABS: ~Lactic Acid-LAB USE ONLY 2.5 mmol/L (0.5-2.0)
[2023-11-08] MEDS: ondansetron HCL 4 MG/2 ML VIAL IVPUSH (14:38)
--- NOTE | 2023-11-08 15:04 | PC.NURSE ---
tamiflu ordered for pt, this technical writer entered room and pt was vomitting, MILKA Andrews at bedside evaluating pt at this time will hold, tamiflu until pt is able to tolerate PO.
[2023-11-08] MEDS: Oseltamivir Phosphate 75 MG CAPSULE PO (15:32)
--- NOTE | 2023-11-08 15:32 | PHA.MEDREC ---
Pharmacy Consult ? Medication Reconciliation Pharmacy has completed the medication reconciliation. Confirmed medications with patient. Reports that he was unable to take his medications today, because he was unable to swallow them.
--- NOTE | 2023-11-08 15:37 | P.HPHOSP_ITS ---
History of Present Illness Date of Service: 11/08/23 Attending physician on admission: Darell Hannah Chief Complaint: Abdominal pain Pt is a 28-year-old male with a PMH significant for?ulcerative colitis who presents to the ED from PCP's office for evaluation of fever, tachycardia, and abdominal pain. Pt states symptoms began last week with fever, abdominal and rectal pain, and intermittent nausea and vomiting. Also developed some shortness of breath and mostly nonproductive cough. Reports stool has been crumbly . Has not been eating or drinking much due to nausea and vomiting up to 3 episodes daily. Pt initially presented to PCP who referred him to the ED for concern for abdominal infection. Denies chest pain/pressure, palpitations. No shortness of breath. States last used marijuana 2 weeks ago. 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 In the ED pt was fever of 101.1, tachycardia up to 134, and initially elevated BP of 155/89. Labs were significant for testing positive for influenza a, leukocytosis of 12.8, lactic acid 2.6 repeat 2.5, and C-reactive protein 2.43. Stable H&H. No electrolyte abnormalities. Renal and hepatic function WNL. UA negative for UTI. CXR was unremarkable. CT?of abdomen pelvis with no acute findings. EKG demonstrated sinus tachycardia of 126 no evidence of significant ST elevations or depressions. Pt was treated with IVF, ketorolac, Zosyn, morphine, ondansetron, and Tamiflu. Pt will be admitted to the hospital for treatment and further evaluation of influenza a infection with viral sepsis. Review of Systems 2 Review of Systems: Fever Diffuse abdominal and rectal pain Nausea and vomiting Reduced p.o. intake [facility] Medical History No pertinent past medical history Surgical History No pertinent past surgical history Social History Household Members: Family Housing: House Do you presently have visiting nurse or other home services: No Patient Tobacco Use Status: Former Tobacco user Tobacco use type: Cigarette Cigarette Packs Per Day: 1 Cigarettes Per Day: 20 Years Smoked: 7 Smoked in Last 30 Days: No e-Cigarette/Vaping Use: Never Used Use of substances other than those prescribed or required for medical reasons: Yes Substance Use Type: Marijuana Advance Directives: No service: No Current occupational status: unemployed Cognitive needs: No Hearing needs: No Vision needs: No Meds Allergies Allergy/AdvReac Type Severity Reaction Status Date / Time merida [cherries] AdvReac Gastrointestinal Verified 11/08/23 10:28 Upset Home Medications Medication Instructions Recorded Confirmed Last Taken Type acetaminophen 500 mg tablet 1,000 mg PO Q6H PRN Pain 11/08/23 11/08/23 Unknown History (Acetaminophen Extra Strength) Physical Exam 2 Vital Signs and Narrative: Vital Signs: Last Vital Signs Temp 100.2 F 11/08/23 15:33 Pulse 111 H 11/08/23 15:33 Resp 20 11/08/23 15:33 BP 118/61 11/08/23 15:33 Pulse Ox 100 11/08/23 15:33 O2 Del Method Room Air 11/08/23 15:33 BMI result Body Mass Index 38.0 Constitutional: Alert, in no acute distress. Mental Status: Oriented to person, place and time. Eyes: Pupils are equal, round, and reactive to light. Ear, Nose, and Throat: Oropharynx clear, mucous membranes moist. Ears and nose without deformities. Trachea midline. Respiratory: Clear to auscultation bilaterally. No wheezing, rales, or rhonchi. Cardiovascular: S1, S2, tachy. No murmurs, rubs, or gallops. Gastrointestinal: Abdomen soft, non-distended. Diffusely tender to lightest touch. Pt with guarding. Normal bowel sounds. Neurologic: Cranial nerves II-XII are grossly intact bilaterally. No focal neurological deficits. Moves all extremities spontaneously. Skin: Warm, dry. Musculoskeletal: No cyanosis or clubbing. Extremities: No edema. Psychiatric: Normal mood and affect. Results Labs 11/08/23 11:52 11/08/23 11:52 Labs: Laboratory Results - last 24 hr 11/08/23 11/08/23 11/08/23 11:52 12:00 12:57 MCV 79.6 L MCH 26.5 L MCHC 33.3 RDW 13.1 Plt Count 407 H MPV 10.2 Immature Gran % (Auto) 0.3 Neut % (Auto) 92.7 H Lymph % (Auto) 2.3 L [place] % (Auto) 3.8 Eos % (Auto) 0.5 Baso % (Auto) 0.4 Lymph # (Auto) 0.3 L [place] # (Auto) 0.5 Eos # (Auto) 0.1 Baso # (Auto) 0.1 Abs Immat Gran (auto) 0.04 H Absolute Neuts (auto) 11.8 H Absolute Nucleated RBC 0.000 Nucleated RBC % (auto) 0.0 Smear Tech's Comments VERIFIED Hold Purple Top SEE NOTE PT 13.8 H INR 1.1 Anion Gap 15 Estim Creat Clear Calc 161.3 Estimated GFR > 60 Random Glucose 129 H Lactic Acid 2.6 H* Lactic Acid F/U @ 2Hr Calcium 10.1 D Magnesium 1.7 Total Bilirubin 0.7 Direct Bilirubin 0.2 AST 22 ALT 39 Alkaline Phosphatase 101 Total Creatine Kinase 76 C-Reactive Protein 2.43 H Total Protein 8.5 H Albumin 4.9 Lipase 12 Urine Color Yellow Urine Appearance Clear Urine pH 6.5 Ur Specific [place] 1.010 Urine Protein Negative Urine Glucose (UA) Negative Urine Ketones Negative Urine Blood Negative Urine Nitrite Negative Ur Leukocyte Esterase Negative Influenza Type A (PCR) POSITIVE A Influenza Type B (PCR) NEGATIVE RSV RNA Qual (PCR) NEGATIVE SARS-CoV-2 RNA (RT-PCR) NEGATIVE 11/08/23 14:19 MCV MCH MCHC RDW Plt Count MPV Immature Gran % (Auto) Neut % (Auto) Lymph % (Auto) [place] % (Auto) Eos % (Auto) Baso % (Auto) Lymph # (Auto) [place] # (Auto) Eos # (Auto) Baso # (Auto) Abs Immat Gran (auto) Absolute Neuts (auto) Absolute Nucleated RBC Nucleated RBC % (auto) Smear Tech's Comments Hold Purple Top PT INR Anion Gap Estim Creat Clear Calc Estimated GFR Random Glucose Lactic Acid Lactic Acid F/U @ 2Hr 2.5 H* Calcium Magnesium Total Bilirubin Direct Bilirubin AST ALT Alkaline Phosphatase Total Creatine Kinase C-Reactive Protein Total Protein Albumin Lipase Urine Color Urine Appearance Urine pH Ur Specific [place] Urine Protein Urine Glucose (UA) Urine Ketones Urine Blood Urine Nitrite Ur Leukocyte Esterase Influenza Type A (PCR) Influenza Type B (PCR) RSV RNA Qual (PCR) SARS-CoV-2 RNA (RT-PCR) Imaging Radiologist's Impressions: Impressions Abdomen/Pelvis CT 11/08/23 13:31 IMPRESSION: No acute findings to correlate with clinical indication of peritoneal signs. No visible free air. Assessment and Plan (1) Influenza A: Status: Acute Plan Pt is a 28-year-old male with a PMH significant for?ulcerative colitis who presents to the ED from PCP's office for evaluation of fever, tachycardia, and abdominal pain. Pt will be admitted to the hospital for treatment and further evaluation of influenza a infection with viral sepsis. Influenza infection Will treat with Tamiflu, DuoNebs, benzonatate Patient not hypoxic Viral sepsis Fever, tachycardia, tachypnea, leukocytosis, lactic acid secondary to influenza infection No clear source of bacterial infection: CXR negative, UA negative, CT of abdomen/pelvis negative for abdomen No indication to continue antibiotics at this time Follow cultures Lactic acidosis Lactic acid 2.6 at time of presentation with repeat 2.5 Likely secondary to nausea and vomiting, not sepsis Patient received IVF in ED Abdominal pain Intermittent rectal and abd pain, N/V x1 week Patient with history of ulcerative colitis, has had similar presentations in the past Unclear etiology: CT of abdomen/pelvis negative for acute colon Analgesics for pain management Clear liquid diet for now, advance as tolerated GI consult Full Code Attending:?Dr. Hannah DVT Prophylaxis: Lovenox Pt will require a hospitalization of at least two nights for treatment of?influenza infection with viral sepsis. Given pt's tachycardia, tachypnea, and inability to tolerate p.o. intake, pt will require hospitalization for administration of IV analgesics and anti-emetics, as well as close monitoring of labs, vitals, and cardiac function. Quality Stroke Does the patient have a stroke diagnosis?: No VTE Prior VTE?: No VTE Risk Level:: Medical - moderate - high VTE Device Contraindication: Treatment Not Indicated VTE Drug Contraindication: N/A - Med Ordered
--- OUTSIDE RECORDS SUMMARY | 2023-11-08 16:35 | XMS_ITS | Continuity of Care Document ---
Author Name Unknown Organization [facility] ter Address [address] [place] [id number] Care Team Providers Care Field Operations Manager Name Role Phone Not on Staff, PCP Primary Care Physician Unavail able Encounter [facility] Date(s): 10/09/23 - 10/10/[address] [address]- Encounter Diagnosis Abdominal pain(Final) - 10/10/23 Discharge Disposition: A-D/C Home Attending Physician: Viviane Monaco DO Admitting Physician: Viviane Monaco DO Referring Physician: Not on Staff, Referring MD Allergies, Adverse Reactions, Alerts Substance Reaction Severity Status Petersen throat swelling Active Immunizations Given and Recorded Vaccine Date Status Refusal Reason pneumococcal 23-valent vaccine 12/15/15 Given influenza virus vaccine, inactivated 12/15/15 Give n Medications Humira Pen 40 mg/0.8 mL subcutaneous solution = 40 mg, Subcutaneous Infusion, Once, one injection ever 14 days, # 1 applicator, 6 Refills, Soft Stop, 07/16/18 14:32:33 EDT Start Date: 07/16/18 Status: Ordered MorPHINE Inj 4 mg, Injection, IV Push Slowly, Once, STAT, 10/09/23 21:54:00 EST, Stop date 10/09/23 21:54:00 EST Start Date: 10/09/23 Stop Date: 10/10/23 Status: Completed ondansetron 4 mg oral tablet 1 tablet = 4 mg, By Mouth, 2 times a day, PRN as needed for nausea/vomiting, for 7 days, # 14 tablet, 0 Refills, Acute 10/17/23 5:12:00 EST, 10/10/23 5:12:00 EST, Tablet, [id number], Partial fill upon patient request if the prescription is for... Start Date: 10/10/23 Stop Date: 10/17/23 Status: Ordered OxyCODONE IR Tablet 5 mg, Tablet, By Mouth, Once, STAT, 10/10/23 4:54:00 EST, Stop date 10/10/23 4:54:00 EST Start Date: 10/10/23 Stop Date: 10/10/23 Status: Completed Tylenol 325 mg oral tablet 975 mg, Tablet, By Mouth, Once, Routine, 10/10/23 0:00:00 EST, Stop date 10/10/23 0:00:00 EST Start Date: 10/10/23 Stop Date: 10/09/23 Status: Completed Problem List Condition Confirmation Course Effective Dates Status Health St atus Informant Ulcerative colitis Confirmed Active Vital Signs Most recent to oldest [Reference Range]: 1 2 3 Height 172 cm (10/10/23 1:25 AM) 172 cm (10/09/23 7:23 PM) 172 cm (10/09/23 5:44 PM) Oxygen Saturation [94-100 %] 100 % (10/10/23 5:25 AM) 100 % (10/10/23 2:15 AM) 100 % (10/10/23 12:08 AM) Pulse Rate [55-90 bpm] 83 bpm (10/10/23 5:25 AM) 72 bpm (10/10/23 2:15 AM) 64 bpm (10/10/23 12:08 AM) Blood Pressure [90-138/55-84 mm Hg] 124/69mm Hg (10/10/23 5:25 AM) 116/72mm Hg (10/10/23 2:15 AM) 126/65mm Hg (10/10/23 12:08 AM) Respiratory Rate [16-30 br/min] 16 br/min (10/10/23 5:25 AM) 18 br/min (10/10/23 2:42 AM) 16 br/min (10/09/23 11:56 PM) Temperature [96.8-100.4 DegF] 98.3 DegF (10/10/23 2:15 AM) 98.4 DegF (10/10/23 12:08 AM) 98.3 DegF (10/09/23 9:36 PM) Mode of Delivery (Oxygen) Room air (10/10/23 5:25 AM) Room air (10/09/23 7:43 PM) Room air (10/09/23 5:44 PM) Blood pressure sites Arm, left (10/10/23 2:15 AM) Arm, left (10/10/23 12:08 AM) Arm, right (10/09/23 9:36 PM) Temperature Route Oral (10/10/23 2:15 AM) Oral (10/10/23 12:08 AM) Oral (10/09/23 9:36 PM) Dry Weight 109 kg (10/10/23 1:25 AM) 109 kg (10/09/23 7:23 PM) 109 kg (10/09/23 5:44 PM) Dry Weight Obtained Via Patient/family s tated (10/09/23 5:44 PM) Social History Social History Type Response Smoking Status Current every day jonathan sampson entered on: 07/11/18 Sex EKG study * Event Display: EKG Authored Date: * Event Display: ECG 12-Lead Authored Date: Please click on pdf link to open report * Event Display: ECG 12-Lead Authored Date: Ventricular Rate: 76 BPM Atrial Rate: 76 BPM P-R Interval: 138 ms QRS Duration: 86 ms Q-T Interval: 364 ms QTC Calculation(Bazett): 409 ms P [place]: 60 degrees R [place]: 49 degrees T [place]: 21 degrees Normal sinus rhythm with sinus arrhythmia Nonspecific T wave abnormality Abnormal ECG No previous ECGs available Confirmed by SUSY REEDER DO ([id number]) on 10/10/2023 9:18:12 AM [place]: SUSY REEDER DO Patient Care team information Care Team Personnel Name: Melania Barahona Position: [facility] Outreach Member Role: Lifetime Consulting Physician Name: Not on Staff, PCP Position: [facility] Physician (General Medicine) Member Role: PCP Care Team Related Persons Name: NANCY MANZANARES Address: [place] [address] Name: SEAN AHUMADA Address: home [address] [place] [id number]
[2023-11-08] MEDS: Enoxaparin Sodium 40 MG/0.4 ML SYRINGE SUBCUT (17:51)
[2023-11-08 19:18] LABS: Cancel Lactic Acid Canceled
[2023-11-08] MEDS: Melatonin 3 MG TABLET 6 MG PO (21:25)
[2023-11-09] VITALS (7 sets, daily range): BP systolic 102–140; BP diastolic 52–82; PULSE 77–107; RESP 16–20; TEMP 36.1–37.9; O2SAT 93–98
[2023-11-09] MEDS: Acetaminophen 325 MG TABLET 650 MG PO (00:24)
[2023-11-09] MEDS: 0.9 % Sodium Chloride Flush 3 ML SYRINGE IVFLUSH ×3 (00:26→15:34)
[2023-11-09] MEDS: Oseltamivir Phosphate 75 MG CAPSULE PO ×2 (03:12→15:33)
[2023-11-09] MEDS: Morphine Sulfate 4 MG/ML CARTRIDGE IVPUSH ×4 (03:13→22:16)
[2023-11-09 06:20] LABS: Hemoglobin 13.2 g/dl (14.0-18.0); Mean Corpuscular HGB Conc 32.2 g/dl (31.0-36.0); Mean Corpuscular Hemoglobin 26.5 pg (27.0-33.0); Mean Corpuscular Volume 82.3 fL (80.0-98.0); Mean Platelet Volume 10.6 fL (9.4-12.4); Platelet Count 301 X10*3/uL (160-400); Red Blood Count 4.98 X10*6/uL (4.60-5.80); Red Cell Distribution Width 13.2 % (11.0-16.0); White Blood Count 5.4 X10*3/uL (4.8-10.8)
[2023-11-09 06:43] LABS: Anion Gap 14 (12-20); Blood Urea Nitrogen 6 mg/dL (9-16); Calcium 8.9 mg/dL (8.4-10.2); Carbon Dioxide 25 mmol/L (22-29); Chloride 104 mmol/L (96-108); Creatinine Clr Calc Pharmacy 115.9; Estimated Glomerular Filt Rate > 60; Glucose Random 96 mg/dL (60-115); Potassium 3.7 mmol/L (3.3-5.1); Sodium 139 mmol/L (135-145)
[2023-11-09] MEDS: Omeprazole 40 MG CAPSULE.DR PO (09:23)
--- NOTE | 2023-11-09 09:39 | CONS_ITS ---
DATE OF SERVICE: 11/09/2023 REFERRING PHYSICIAN: MILKA Bhatia REASON FOR CONSULTATION: Abdominal pain, nausea, and vomiting. HISTORY OF PRESENT ILLNESS: The patient is a pleasant 28-year-old man who was admitted to the hospital after presenting to the emergency department with abdominal pain, nausea, vomiting, and fever. He was recently hospitalized in September for abdominal and rectal pain and diagnosed with proctalgia fugax as well as epiploic appendagitis and was seen at that time. He reports a 3-day history of epigastric and generalized abdominal pain with nausea and vomiting with occasional small amounts of bright red blood in the vomitus which he thinks comes from his mouth. He has been unable to keep anything down and was seen by his primary care provider in an urgent care setting where he was noted to have abdominal pain, tachycardia, and fever. He was sent to the emergency department where he was further evaluated. Laboratory studies were obtained as well as imaging. In the emergency department, he was noted to have a fever to 101.1 and tachycardia with a heart rate in the 120-130 range. This responded to IV fluids and antipyretics. Further evaluation with laboratory studies documented an elevated white count of 12.8 with an elevated lactate level concerning for underlying sepsis. Liver function tests and lipase were normal. Imaging was obtained with CT scanning of the abdomen and pelvis, which is reviewed. This is interpreted as showing no acute findings. The patient has a reported history remotely of ulcerative colitis, which is detailed in his previous consultation. Colonoscopy 2 years ago was reportedly negative. He had been treated in the past with various agents including Humira, which he stopped on his own, but is not taking anything for colitis at this time. He reports his rectal pain has improved with use of dicyclomine. During his emergency room evaluation, laboratory testing showed a positive influenza type A test and he is currently being treated with Tamiflu. On his last evaluation, he did have a fecal calprotectin that was elevated at 743, suggestive of possible underlying inflammatory bowel disease. PAST MEDICAL HISTORY: Indeterminate colitis. CURRENT MEDICATIONS: Current medication list is reviewed in the chart. ALLERGIES: THERE ARE NO REPORTED DRUG ALLERGIES. FAMILY HISTORY: This is reviewed with the patient and is negative for inflammatory bowel disease. SOCIAL HISTORY: He does use marijuana, but states he has not in the last 2 weeks. There is no other substance abuse reported. REVIEW OF SYSTEMS: SKIN: No pruritus. HEENT: Negative. CARDIOPULMONARY: No shortness of breath or chest pain. GASTROINTESTINAL: As above. GENITOURINARY: Negative. NEUROPSYCHIATRIC: Negative. PHYSICAL EXAMINATION: GENERAL: Shows a pleasant male, lying in bed, complaining of abdominal pain. VITAL SIGNS: Reviewed in electronic medical record and are stable. SKIN: Anicteric. HEENT: Shows no scleral icterus. NECK: Without lymphadenopathy or thyromegaly. LUNGS: Clear. HEART: Shows irregular rate and rhythm. S1, S2. No murmur. ABDOMEN: Soft. He does have exquisite tenderness to palpation, but is distractible. Bowel sounds are present. No organomegaly is noted. EXTREMITIES: Without edema. LABORATORY DATA AND IMAGING STUDIES: Reviewed. IMPRESSION: 1. Influenza. 2. Nausea and vomiting. 3. Indeterminate colitis. At this time, I would recommend supportive care and treatment of his underlying influenza illness. This may be affecting his GI tract and causing some worsening of his symptoms. He will need eventual evaluation with upper GI endoscopy and colonoscopy because of his persistent upper GI symptoms and history of colitis as well as elevated calprotectin. This will be arranged as an outpatient for next week. I discussed risks and benefits of endoscopy and colonoscopy with him. Thank you for asking me to see him. I will follow him in the hospital with you. MD JAVIER Kaiser/OLIVE / [phone]
--- NOTE | 2023-11-09 10:58 | MHC.CM.PN ---
Pt is independent, he lives with his mother, has no home health services. Family to transport home upon DC. Discussed HCP with him, he is interested in completing one, CM to provide form. CM to follow and assist with DC plan.
[2023-11-09] MEDS: ondansetron HCL 4 MG/2 ML VIAL IVPUSH ×2 (15:33→22:18)
[2023-11-09] MEDS: Enoxaparin Sodium 40 MG/0.4 ML SYRINGE SUBCUT (15:33)
--- NOTE | 2023-11-09 15:42 | P.PNIM_ITS ---
Subjective Subjective Date of Service: 11/09/23 Interval History: No acute issues overnight. Continues with lower abdominal periumbilical abdominal pain Review of Systems Denies chest pain Denies shortness of breath Denies nausea vomiting diarrhea Denies fever chills Physical Exam 2 Vital Signs: Vital Signs: Last Vital Signs Temp 99.7 F 11/09/23 15:29 Pulse 94 11/09/23 15:29 Resp 17 11/09/23 15:29 BP 134/66 11/09/23 15:29 Pulse Ox 94 11/09/23 15:29 O2 Del Method Room Air 11/09/23 15:29 BMI result Body Mass Index 20.3 Const: Other: Awake alert no acute distress Resp: Other: Clear to auscultation bilaterally no rales rhonchi or wheezes Cardio: Other: No S4; positive S1-S2; no S3 murmurs rubs or gallops GI: Other: Soft nontender nondistended normoactive bowel sounds Extrem: Other: No edema bilaterally Objective Data Active Medications Acetaminophen (Acetaminophen 325 Mg Tablet) 650 mg PO Q6H PRN PRN Reason: Pain, Mild (Pain Scale 1-3) Last Admin: 11/09/23 00:24 Dose: 650 mg Documented By: MAYRA Al Hydroxide/Mg Hydroxide (Magnesium Hydrox/Alum Hydrox 30 Ml Oral.Susp) 30 ml PO Q4H PRN PRN Reason: GI Upset Albuterol/Ipratropium (Albuterol/Iprat 2.5/0.5mg 3 Ml Ampul.Neb) 3 ml INHALE RQ4H WHILE AWAKE PRN PRN Reason: Shortness of Breath/Wheezing Benzonatate (Benzonatate 100 Mg Capsule) 100 mg PO TID PRN PRN Reason: Cough Dicyclomine HCl (Dicyclomine Hcl 10 Mg Capsule) 20 mg PO QIDACHS PRN PRN Reason: abd pain Docusate Sodium (Docusate Sodium 100 Mg Capsule) 100 mg PO DAILY PRN PRN Reason: Constipation Enoxaparin Sodium (Enoxaparin Sodium 40 Mg/0.4 Ml Syringe) 40 mg SUBCUT Q24H YADIRA Last Admin: 11/09/23 15:33 Dose: 40 mg Documented By: MARY Melatonin (Melatonin 3 Mg Tablet) 6 mg PO BEDTIME PRN PRN Reason: Insomnia Last Admin: 11/08/23 21:25 Dose: 6 mg Documented By: DAVE Morphine Sulfate (Morphine Sulfate 4 Mg/Ml Cartridge) 4 mg IVPUSH Q4H PRN; Protocol PRN Reason: Pain, Severe (Pain Scale 7-10) Last Admin: 11/09/23 15:33 Dose: 4 mg Documented By: MARY Omeprazole (Omeprazole 40 Mg Capsule.Dr) 40 mg PO DAILY@0630 [facility] Last Admin: 11/09/23 09:23 Dose: 40 mg Documented By: MARY Ondansetron HCl (Ondansetron Hcl 4 Mg/2 Ml Vial) 4 mg IVPUSH Q8H PRN PRN Reason: Nausea and Vomiting Last Admin: 11/09/23 15:33 Dose: 4 mg Documented By: MARY Oseltamivir Phosphate (Oseltamivir Phosphate 75 Mg Capsule) 75 mg PO Q12H [facility] Stop: 11/13/23 03:01 Last Admin: 11/09/23 15:33 Dose: 75 mg Documented By: MARY Polyethylene Glycol (Polyethylene Glycol 3350 17 Gm Powd.Pack) 17 gm PO DAILY PRN PRN Reason: constipation Sodium Chloride (0.9 % Sodium Chloride Flush 3 Ml Syringe) 3 ml IVFLUSH QSHIFT [facility] Last Admin: 11/09/23 15:34 Dose: 3 ml Documented By: MARY Labs 11/09/23 05:35 11/09/23 05:35 Labs: Laboratory Results - last 24 hr 11/09/23 05:35 MCV 82.3 MCH 26.5 L MCHC 32.2 RDW 13.2 Plt Count 301 D MPV 10.6 Absolute Nucleated RBC 0.000 Nucleated RBC % (auto) 0.0 Anion Gap 14 Estim Creat Clear Calc 115.9 Estimated GFR > 60 Random Glucose 96 Calcium 8.9 D Microbiology Microbiology Results: Microbiology 11/08/23 12:00 Blood Culture - Preliminary Blood - Venous No growth after 24 hours. Assessment and Plan (1) Influenza A: Status: Acute Plan Pt is a 28-year-old male with a PMH significant for?ulcerative colitis who presents to the ED from PCP's office for evaluation of fever, tachycardia, and abdominal pain. Pt will be admitted to the hospital for treatment and further evaluation of influenza a infection with viral sepsis. 1.Influenza infection -Tamiflu/ DuoNebs/benzonatate -follow clinically 2.Viral sepsis (resolved) -No indication to continue antibiotics at this time -Follow cultures 3.Abdominal pain -appreciate GI input -clear liquid diet; advance as tolerated -outpatient workup Full Code Lovenox Patient will require ongoing hospitalization for IV fluids in the backdrop of viral sepsis Quality Stroke Does the patient have a stroke diagnosis?: No VTE Prior VTE?: No VTE Risk Level:: Medical - moderate - high VTE Device Contraindication: Treatment Not Indicated VTE Drug Contraindication: N/A - Med Ordered
[2023-11-09] MEDS: Piperacillin Sodium/Tazobactam 3.375 GM in 0.9 % Sodium Chloride 50 ML IV ×2 (17:35→22:20)
[2023-11-09] MEDS: Lactated Ringers 1,000 ML 125 ML IVCONT (17:35)
[2023-11-09] MEDS: Dicyclomine HCl 10 MG CAPSULE 20 MG PO (22:11)
[2023-11-09] MEDS: Melatonin 3 MG TABLET 6 MG PO (22:32)
[2023-11-10] VITALS (7 sets, daily range): BP systolic 136–150; BP diastolic 61–91; PULSE 60–93; RESP 16–22; TEMP 36–37.3; O2SAT 95–98
[2023-11-10] MEDS: Morphine Sulfate 4 MG/ML CARTRIDGE IVPUSH ×3 (03:10→20:19)
[2023-11-10] MEDS: Piperacillin Sodium/Tazobactam 3.375 GM in 0.9 % Sodium Chloride 50 ML IV ×2 (03:18→10:20)
[2023-11-10] MEDS: Lactated Ringers 1,000 ML 125 ML IVCONT ×3 (04:09→17:43)
[2023-11-10] MEDS: Oseltamivir Phosphate 75 MG CAPSULE PO ×2 (06:10→17:02)
[2023-11-10] MEDS: Dicyclomine HCl 10 MG CAPSULE 20 MG PO ×2 (06:10→20:27)
[2023-11-10] MEDS: Omeprazole 40 MG CAPSULE.DR PO (06:10)
[2023-11-10 06:56] LABS: MANUAL DIFF FLAG NO
[2023-11-10 07:13] LABS: Basophils Percent Auto 0.7 % (0-2); Eosinophils Percent Auto 0.7 % (0-4); Hematocrit 39.5 % (42.0-52.0); Hemoglobin 13.1 g/dl (14.0-18.0); Imm Gran Abs Auto 0.01 X10*3/uL (0.00-0.03); Imm Gran Pct Auto 0.2 % (0.0-0.4); Lymphocytes Percent Auto 17.2 % (20-40); Mean Corpuscular HGB Conc 33.2 g/dl (31.0-36.0); Mean Corpuscular Hemoglobin 26.6 pg (27.0-33.0); Mean Corpuscular Volume 80.3 fL (80.0-98.0); Mean Platelet Volume 10.5 fL (9.4-12.4); Monocytes Absolute Auto 0.8 X10*3/uL (0.1-1.2); Monocytes Percent Auto 12.6 % (2-11); Neutrophils Absolute Auto 4.1 x10*3/uL (2.0-8.3); Neutrophils Percent Auto 68.6 % (45-73); Platelet Count 301 X10*3/uL (160-400); Red Blood Count 4.92 X10*6/uL (4.60-5.80); Red Cell Distribution Width 13.2 % (11.0-16.0); White Blood Count 5.9 X10*3/uL (4.8-10.8)
[2023-11-10 07:41] LABS: Alanine Aminotransferase 27 U/L (0-40); Albumin Level 3.8 g/dL (3.5-5.0); Alkaline Phosphatase 73 U/L (39-117); Anion Gap 16 (12-20); Aspartate Amino Transferase 21 U/L (5-37); Bilirubin Total 0.3 mg/dL (0.0-1.0); Blood Urea Nitrogen 6 mg/dL (9-16); Calcium 9.2 mg/dL (8.4-10.2); Carbon Dioxide 27 mmol/L (22-29); Chloride 103 mmol/L (96-108); Creatinine Clr Calc Pharmacy 113.2; Estimated Glomerular Filt Rate > 60; Glucose Fasting 96 mg/dL (60-99); Sodium 142 mmol/L (135-145); Total Protein 6.8 g/dL (6.5-8.0)
--- NOTE | 2023-11-10 12:13 | MHC.CM.PN ---
EMR reviewed and per MD rounds, pt is not medically cleared for D/C due to management of sepsis requiring IV fluids and IV abx. CM will continue to follow.
--- NOTE | 2023-11-10 15:39 | P.PNIM_ITS ---
Subjective Subjective Date of Service: 11/10/23 Interval History: Essentially no change overnight. Developed diarrhea likely secondary to Zosyn Review of Systems Denies chest pain Denies shortness of breath Denies nausea vomiting diarrhea Denies fever chills Physical Exam 2 Vital Signs: Vital Signs: Last Vital Signs Temp 98.0 F 11/10/23 11:08 Pulse 93 11/10/23 11:08 Resp 22 H 11/10/23 11:08 BP 141/78 H 11/10/23 11:08 Pulse Ox 97 11/10/23 11:08 O2 Del Method Room Air 11/10/23 11:08 BMI result Body Mass Index 20.3 Const: Other: Awake alert no acute distress Resp: Other: Clear to auscultation bilaterally no rales rhonchi or wheezes Cardio: Other: No S4; positive S1-S2; no S3 murmurs rubs or gallops GI: Other: Soft nontender nondistended normoactive bowel sounds Extrem: Other: No edema bilaterally Objective Data Active Medications Acetaminophen (Acetaminophen 325 Mg Tablet) 650 mg PO Q6H PRN PRN Reason: Pain, Mild (Pain Scale 1-3) Last Admin: 11/09/23 00:24 Dose: 650 mg Documented By: MAYRA Al Hydroxide/Mg Hydroxide (Magnesium Hydrox/Alum Hydrox 30 Ml Oral.Susp) 30 ml PO Q4H PRN PRN Reason: GI Upset Albuterol/Ipratropium (Albuterol/Iprat 2.5/0.5mg 3 Ml Ampul.Neb) 3 ml INHALE RQ4H WHILE AWAKE PRN PRN Reason: Shortness of Breath/Wheezing Benzonatate (Benzonatate 100 Mg Capsule) 100 mg PO TID PRN PRN Reason: Cough Dicyclomine HCl (Dicyclomine Hcl 10 Mg Capsule) 20 mg PO QIDACHS PRN PRN Reason: abd pain Last Admin: 11/10/23 06:10 Dose: 20 mg Documented By: LUISLAMChris Docusate Sodium (Docusate Sodium 100 Mg Capsule) 100 mg PO DAILY PRN PRN Reason: Constipation Enoxaparin Sodium (Enoxaparin Sodium 40 Mg/0.4 Ml Syringe) 40 mg SUBCUT Q24H YADIRA Last Admin: 11/09/23 15:33 Dose: 40 mg Documented By: MARY Lactated Ringer's (Lr) 1,000 mls @ 125 mls/hr IVCONT .Q8H [facility] Last Admin: 11/10/23 10:20 Dose: 125 mls/hr Documented By: SEVEN Levofloxacin (Levaquin) 500 mg in 100 mls @ 100 mls/hr IV Q24H YADIRA Metronidazole (Flagyl) 500 mg in 100 mls @ 100 mls/hr IV Q8H YADIRA Melatonin (Melatonin 3 Mg Tablet) 6 mg PO BEDTIME PRN PRN Reason: Insomnia Last Admin: 11/09/23 22:32 Dose: 6 mg Documented By: IRIS Morphine Sulfate (Morphine Sulfate 4 Mg/Ml Cartridge) 4 mg IVPUSH Q4H PRN; Protocol PRN Reason: Pain, Severe (Pain Scale 7-10) Last Admin: 11/10/23 13:33 Dose: 4 mg Documented By: DAVID Omeprazole (Omeprazole 40 Mg Capsule.Dr) 40 mg PO DAILY@0630 [facility] Last Admin: 11/10/23 06:10 Dose: 40 mg Documented By: IRIS Ondansetron HCl (Ondansetron Hcl 4 Mg/2 Ml Vial) 4 mg IVPUSH Q8H PRN PRN Reason: Nausea and Vomiting Last Admin: 11/09/23 22:18 Dose: 4 mg Documented By: IRIS Oseltamivir Phosphate (Oseltamivir Phosphate 75 Mg Capsule) 75 mg PO Q12H [facility] Stop: 11/13/23 06:01 Last Admin: 11/10/23 06:10 Dose: 75 mg Documented By: IRIS Polyethylene Glycol (Polyethylene Glycol 3350 17 Gm Powd.Pack) 17 gm PO DAILY PRN PRN Reason: constipation Sodium Chloride (0.9 % Sodium Chloride Flush 3 Ml Syringe) 3 ml IVFLUSH QSHIFT [facility] Last Admin: 11/10/23 08:32 Dose: Not Given Documented By: SEVEN Non-Admin Reason: IV Running Labs 11/10/23 06:13 11/10/23 06:13 Labs: Laboratory Results - last 24 hr 11/10/23 06:13 MCV 80.3 MCH 26.6 L MCHC 33.2 RDW 13.2 Plt Count 301 MPV 10.5 Immature Gran % (Auto) 0.2 Neut % (Auto) 68.6 Lymph % (Auto) 17.2 L [place] % (Auto) 12.6 H Eos % (Auto) 0.7 Baso % (Auto) 0.7 Lymph # (Auto) 1.0 L [place] # (Auto) 0.8 Eos # (Auto) 0.0 Baso # (Auto) 0.0 Abs Immat Gran (auto) 0.01 Absolute Neuts (auto) 4.1 Absolute Nucleated RBC 0.000 Nucleated RBC % (auto) 0.0 Anion Gap 16 Estim Creat Clear Calc 113.2 Estimated GFR > 60 Fasting Glucose 96 Calcium 9.2 Total Bilirubin 0.3 AST 21 ALT 27 Alkaline Phosphatase 73 Total Protein 6.8 Albumin 3.8 Microbiology Microbiology Results: Microbiology 11/08/23 12:00 Blood Culture - Preliminary Blood - Venous No growth after 48 hours. 11/08/23 11:52 Blood Culture - Preliminary Blood - Venous No growth after 24 hours. Assessment and Plan (1) Influenza A: Status: Acute (2) Abdominal pain: Status: Acute Plan Pt is a 28-year-old male with a PMH significant for?ulcerative colitis who presents to the ED from PCP's office for evaluation of fever, tachycardia, and abdominal pain. Pt will be admitted to the hospital for treatment and further evaluation of influenza a infection with viral sepsis. 1.Influenza infection -Tamiflu/ DuoNebs/benzonatate -follow clinically 2..Abdominal pain -levaquin/zosyn(1) -clear liquid diet; advance as tolerated -outpatient workup Full Code Lovenox Patient will require ongoing hospitalization for IV fluids in the backdrop of viral sepsis Quality Stroke Does the patient have a stroke diagnosis?: No VTE Prior VTE?: No VTE Risk Level:: Medical - moderate - high VTE Device Contraindication: Treatment Not Indicated VTE Drug Contraindication: N/A - Med Ordered
[2023-11-10] MEDS: Enoxaparin Sodium 40 MG/0.4 ML SYRINGE SUBCUT (17:01)
[2023-11-10] MEDS: metroNIDAZOLE/NS 500 MG/100 ML PIGGYBACK 100 MG IV (17:01)
[2023-11-10] MEDS: levoFLOXacin/D5W 500 MG/100 ML PIGGYBACK 100 MG IV (17:02)
[2023-11-10] MEDS: 0.9 % Sodium Chloride Flush 3 ML SYRINGE IVFLUSH ×2 (17:02→20:22)
--- NOTE | 2023-11-10 17:44 | P.CDIM_ITS ---
PROVIDER RESPONSE TEXT: To clarify, the appropriate diagnosis supported by the clinical indicators: Acute QUERY TEXT: PHYSICIAN'S DOCUMENTATION REQUEST Date of Query: 11/10/2023 08:11 AM EST Patient Name: Diogo Alanis Admit Date: 11/08/2023 Dear Darell Hannah, A review of the medical record indicates additional documentation may be needed. Please review below and update the documentation accordingly. Clinical Indicators: H&P: Plan - lactic acidosis lactic acid 2.6 at time of presentation with repeat 2.5 Likely secondary to nausea and vomiting, not sepsis. IVF in ED Clarify which of the following accurately represents the acuity of the lactic acidosis: Acute Acute on chronic Other (explain) Clinically unable to determine (explain) Thank you, Felisha Hui, CCS, CDIS Use of terms such as suspected, likely, concern for, or probable (associated with a specific diagnosi s that is being evaluated, monitored, or treated as if it exists) are acceptable and can be coded in the inpatient se tting, when documented at the time of discharge. Please use your independent medical judgment in providing your response. THIS QUERY IS PART OF THE PERMANENT MEDICAL RECORD
[2023-11-10] MEDS: Melatonin 3 MG TABLET 6 MG PO (20:27)
[2023-11-11] MEDS: Morphine Sulfate 4 MG/ML CARTRIDGE IVPUSH ×4 (00:19→22:08)
[2023-11-11] MEDS: Lactated Ringers 1,000 ML 125 ML IVCONT ×2 (00:21→08:43)
[2023-11-11] MEDS: Benzonatate 100 MG CAPSULE PO ×2 (00:23→19:52)
[2023-11-11] MEDS: metroNIDAZOLE/NS 500 MG/100 ML PIGGYBACK 100 MG IV ×2 (02:01→08:43)
[2023-11-11 03:15] VITALS: BP 149/89; PULSE 64; RESP 20; TEMP 37.1; O2SAT 98
[2023-11-11] MEDS: Omeprazole 40 MG CAPSULE.DR PO (06:11)
[2023-11-11] MEDS: Oseltamivir Phosphate 75 MG CAPSULE PO ×2 (06:11→16:29)
[2023-11-11 07:17] VITALS: BP 133/81; PULSE 65; RESP 18; TEMP 36.6; O2SAT 96
[2023-11-11] MEDS: 0.9 % Sodium Chloride Flush 3 ML SYRINGE IVFLUSH ×3 (08:44→22:08)
[2023-11-11 11:05] VITALS: BP 113/63; PULSE 60; RESP 18; TEMP 36.2; O2SAT 98
--- NOTE | 2023-11-11 13:58 | P.PNIM_ITS ---
Subjective Subjective Date of Service: 11/11/23 Interval History: Slowly improving. Diarrhea improved with antibiotic change Review of Systems Denies chest pain Denies shortness of breath Denies nausea vomiting diarrhea Denies fever chills Physical Exam 2 Vital Signs: Vital Signs: Last Vital Signs Temp 97.1 F 11/11/23 11:05 Pulse 60 11/11/23 11:05 Resp 18 11/11/23 11:05 BP 113/63 11/11/23 11:05 Pulse Ox 98 11/11/23 11:05 O2 Del Method Room Air 11/11/23 11:05 BMI result Body Mass Index 20.3 Const: Other: Awake alert no acute distress Resp: Other: Clear to auscultation bilaterally no rales rhonchi or wheezes Cardio: Other: No S4; positive S1-S2; no S3 murmurs rubs or gallops GI: Other: Soft nontender nondistended normoactive bowel sounds Extrem: Other: No edema bilaterally Objective Data Active Medications Acetaminophen (Acetaminophen 325 Mg Tablet) 650 mg PO Q6H PRN PRN Reason: Pain, Mild (Pain Scale 1-3) Last Admin: 11/09/23 00:24 Dose: 650 mg Documented By: MAYRA Al Hydroxide/Mg Hydroxide (Magnesium Hydrox/Alum Hydrox 30 Ml Oral.Susp) 30 ml PO Q4H PRN PRN Reason: GI Upset Albuterol/Ipratropium (Albuterol/Iprat 2.5/0.5mg 3 Ml Ampul.Neb) 3 ml INHALE RQ4H WHILE AWAKE PRN PRN Reason: Shortness of Breath/Wheezing Benzonatate (Benzonatate 100 Mg Capsule) 100 mg PO TID PRN PRN Reason: Cough Last Admin: 11/11/23 00:23 Dose: 100 mg Documented By: CAESAR Dicyclomine HCl (Dicyclomine Hcl 10 Mg Capsule) 20 mg PO QIDACHS PRN PRN Reason: abd pain Last Admin: 11/10/23 20:27 Dose: 20 mg Documented By: CAESAR Docusate Sodium (Docusate Sodium 100 Mg Capsule) 100 mg PO DAILY PRN PRN Reason: Constipation Enoxaparin Sodium (Enoxaparin Sodium 40 Mg/0.4 Ml Syringe) 40 mg SUBCUT Q24H [facility] Last Admin: 11/10/23 17:01 Dose: 40 mg Documented By: DAVID Lactated Ringer's (Lr) 1,000 mls @ 125 mls/hr IVCONT .Q8H [facility] Last Admin: 11/11/23 08:43 Dose: 125 mls/hr Documented By: SAILAJA Levofloxacin (Levaquin) 500 mg in 100 mls @ 100 mls/hr IV Q24H [facility] Last Infusion: 11/10/23 18:05 Dose: Infused Documented By: DAVID Metronidazole (Flagyl) 500 mg in 100 mls @ 100 mls/hr IV Q8H [facility] Last Infusion: 11/11/23 09:43 Dose: Infused Documented By: SAILAJA Melatonin (Melatonin 3 Mg Tablet) 6 mg PO BEDTIME PRN PRN Reason: Insomnia Last Admin: 11/10/23 20:27 Dose: 6 mg Documented By: CAESAR Morphine Sulfate (Morphine Sulfate 4 Mg/Ml Cartridge) 4 mg IVPUSH Q4H PRN; Protocol PRN Reason: Pain, Severe (Pain Scale 7-10) Last Admin: 11/11/23 08:43 Dose: 4 mg Documented By: SAILAJA Omeprazole (Omeprazole 40 Mg Capsule.Dr) 40 mg PO DAILY@0630 [facility] Last Admin: 11/11/23 06:11 Dose: 40 mg Documented By: CAESAR Ondansetron HCl (Ondansetron Hcl 4 Mg/2 Ml Vial) 4 mg IVPUSH Q8H PRN PRN Reason: Nausea and Vomiting Last Admin: 11/09/23 22:18 Dose: 4 mg Documented By: IRIS Oseltamivir Phosphate (Oseltamivir Phosphate 75 Mg Capsule) 75 mg PO Q12H [facility] Stop: 11/13/23 06:01 Last Admin: 11/11/23 06:11 Dose: 75 mg Documented By: CAESAR Polyethylene Glycol (Polyethylene Glycol 3350 17 Gm Powd.Pack) 17 gm PO DAILY PRN PRN Reason: constipation Sodium Chloride (0.9 % Sodium Chloride Flush 3 Ml Syringe) 3 ml IVFLUSH QSHIFT [facility] Last Admin: 11/11/23 08:44 Dose: 3 ml Documented By: SAILAJA Labs 11/10/23 06:13 11/10/23 06:13 Microbiology Microbiology Results: Microbiology 11/08/23 11:52 Blood Culture - Preliminary Blood - Venous No growth after 48 hours. 11/08/23 12:00 Blood Culture - Preliminary Blood - Venous No growth after 48 hours. Assessment and Plan (1) Influenza A: Status: Acute (2) Abdominal pain: Status: Acute Plan Pt is a 28-year-old male with a PMH significant for?ulcerative colitis who presents to the ED from PCP's office for evaluation of fever, tachycardia, and abdominal pain. Pt will be admitted to the hospital for treatment and further evaluation of influenza a infection with viral sepsis. 1.Influenza infection -Tamiflu/ DuoNebs/benzonatate -follow clinically 2..Abdominal pain -levaquin/Flagyl (2) -clear liquid diet; advance as tolerated -outpatient workup Full Code Lovenox Patient will require ongoing hospitalization for IV fluids in the backdrop of viral sepsis Quality Stroke Does the patient have a stroke diagnosis?: No VTE Prior VTE?: No VTE Risk Level:: Medical - moderate - high VTE Device Contraindication: Treatment Not Indicated VTE Drug Contraindication: N/A - Med Ordered
[2023-11-11 15:09] VITALS: BP 127/71; PULSE 62; RESP 20; TEMP 36.5; O2SAT 95
[2023-11-11] MEDS: levoFLOXacin/D5W 500 MG/100 ML PIGGYBACK 100 MG IV (15:13)
[2023-11-11] MEDS: Enoxaparin Sodium 40 MG/0.4 ML SYRINGE SUBCUT (15:14)
[2023-11-11] MEDS: Dicyclomine HCl 10 MG CAPSULE 20 MG PO (19:52)
[2023-11-11 20:00] VITALS: BP 132/76; PULSE 66; RESP 20; TEMP 36.7; O2SAT 98
[2023-11-11] MEDS: Melatonin 3 MG TABLET 6 MG PO (22:13)
[2023-11-12] VITALS: BP 123/69; PULSE 75; RESP 20; TEMP 36.2; O2SAT 96
[2023-11-12 03:50] VITALS: BP 122/68; PULSE 62; RESP 18; TEMP 37; O2SAT 98
[2023-11-12] MEDS: Omeprazole 40 MG CAPSULE.DR PO (04:03)
[2023-11-12] MEDS: Oseltamivir Phosphate 75 MG CAPSULE PO (04:03)
[2023-11-12] MEDS: Morphine Sulfate 4 MG/ML CARTRIDGE IVPUSH (04:04)
[2023-11-12 07:37] VITALS: BP 134/66; PULSE 60; RESP 18; TEMP 36.8; O2SAT 98
[2023-11-12] MEDS: 0.9 % Sodium Chloride Flush 3 ML SYRINGE IVFLUSH (09:43)
[2023-11-12 11:36] VITALS: BP 125/68; PULSE 65; RESP 16; TEMP 37.3; O2SAT 96
--- NOTE | 2023-11-12 13:05 | P.DS_ITS ---
DS: Providers Provider Date of Service: 11/12/23 Date of admission: 11/08/23 16:17 Date of discharge: 11/12/23 Primary care physician: Korin Butts, [employer]- Consults: 11/08/23 16:21 Consult to Gastroenterology Routine Consulting Provider: Shreyas Mike Reason for consultation: Abd pain unclear etiology DS: Diagnosis Discharge Diagnosis (1) Influenza A: Status: Acute (2) Abdominal pain: Status: Acute DS: Summary Hospital Course Hospital Course: 28-year-old male with a PMH significant for?ulcerative colitis who presents to the ED from PCP's office for evaluation of fever, tachycardia, and abdominal pain. Pt states symptoms began last week with fever, abdominal and rectal pain, and intermittent nausea and vomiting. Also developed some shortness of breath and mostly nonproductive cough. Reports stool has been crumbly . Has not been eating or drinking much due to nausea and vomiting up to 3 episodes daily. Pt initially presented to PCP who referred him to the ED for concern for abdominal infection. Denies chest pain/pressure, palpitations. No shortness of breath. States last used marijuana 2 weeks ago. 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 In the ED pt was fever of 101.1, tachycardia up to 134, and initially elevated BP of 155/89. Labs were significant for testing positive for influenza a, leukocytosis of 12.8, lactic acid 2.6 repeat 2.5, and C-reactive protein 2.43. Stable H&H. No electrolyte abnormalities. Renal and hepatic function WNL. UA negative for UTI. CXR was unremarkable. CT?of abdomen pelvis with no acute findings. EKG demonstrated sinus tachycardia of 126 no evidence of significant ST elevations or depressions. Pt was treated with IVF, ketorolac, Zosyn, morphine, ondansetron, and Tamiflu. Pt will be admitted to the hospital for treatment and further evaluation of influenza a infection with viral sepsis. Hospital Course Admitted kept NPO IV fluids. Seen in consultation by GI who recommended conservative therapies and will follow-up in the office. With the next 72 hours, patient's symptoms resolved to the point where he is asking for discharge. At this point in time he is medically acceptable for discharge and can follow up with Dr. Mike in the office Time Attestation Discharge coordination time: Greater than 30 minutes Quality: Safe Use of Opioids Does Pt have an Active Cancer Diagnosis on the Problem List?: No Quality: Stroke Does the patient have a stroke diagnosis?: No Physical Exam Vital Signs: Vital Signs: Last Vital Signs Temp 99.1 F 11/12/23 11:36 Pulse 65 11/12/23 11:36 Resp 16 11/12/23 11:36 BP 125/68 11/12/23 11:36 Pulse Ox 96 11/12/23 11:36 O2 Del Method Room Air 11/12/23 11:36 BMI result Body Mass Index 20.3 Const: Other: Awake alert no acute distress Resp: Other: Clear to auscultation bilaterally no rales rhonchi or wheezes Cardio: Other: No S4; positive S1-S2; no S3 murmurs rubs or gallops GI: Other: Soft nontender nondistended normoactive bowel sounds Extrem: Other: No edema bilaterally DS: Data Data Completed and Pending Labs on day of discharge: Preliminary micro results at discharge 11/08/23 11:52 Blood Culture - Preliminary Blood - Venous No growth after 48 hours. 11/08/23 12:00 Blood Culture - Preliminary Blood - Venous No growth after 48 hours. Discharge Plan Discharge Anticipated Discharge Date/Time: 11/12/23 13:02 Patient Disposition: Home, Self-Care Discharge Diagnosis: Influenza a/cyclic vomiting Referrals: Korin Butts, [employer] PROFESSOR-BC [Primary Care Provider] - 1 Week Discharge Medications: New omeprazole 40 mg Capsule,Delayed Release(Dr/Ec) 40 mg PO DAILY@0630 Qty: 30 1RF ondansetron HCl 8 mg tablet 8 mg PO Q8H PRN (Reason: nausea and vomiting) Qty: 20 0RF Continued docusate sodium 100 mg Capsule 100 mg PO DAILY PRN (Reason: Constipation) Qty: 30 0RF dicyclomine 10 mg Capsule 20 mg PO QIDACHS PRN (Reason: abd pain) Qty: 90 0RF polyethylene glycol 3350 [Miralax] 17 gram/dose powder 17 g PO DAILY PRN (Reason: constipation) Qty: 119 0RF acetaminophen [Acetaminophen Extra Strength] 500 mg Tablet 1,000 mg PO Q6H PRN (Reason: Pain) Discharge Orders: Discharge Order (Routine); Ordered 11/12/23 Ordered By: Darell Hannah Diet: Advance to usual diet Activity on Discharge: As tolerated Stand Alone Forms: Patient Portal Discharge page Care Plan Goals: Continue all previous medicines as taken before hospital Health Concerns: Omeprazole 40 mg daily has been added to your regimen as well as Zofran 8 mg q.8 hours for nausea and vomiting Plan of Treatment: Follow-up with Dr. Mike; his office should call you with an appointment Assessment: See discharge summary
--- NOTE | 2023-11-12 13:50 | MHC.CM.PN ---
PT WILL DC HOME WITH NO SERVICES FAMILY TO TRANSPORT
== END 2023-11-12 14:47 | disposition home or self-care (01) | DRG 720 ==
LOC: HO.ED 16:09 → HO.EDOVER 16:34 → HO.IMC 19:31
PROVIDERS: Physician Assistant; Physician Assistant Medical; Admitting Provider Student in an Organized Health Care Education/Training Program; Emergency Provider Emergency Medicine; PCP Nurse Practitioner Family; Visit Provider Hospitalist
DX: A41.89 Other specified sepsis (principal); E87.21 Acute metabolic acidosis; K52.1 Toxic gastroenteritis and colitis; J10.1 Influenza due to other identified influenza virus with other respiratory manifestations; Z20.822 Contact with and (suspected) exposure to COVID-19; Z87.891 Personal history of nicotine dependence; T36.0X5A Adverse effect of penicillins, initial encounter
CPT/HCPCS: 0241U; 36415; 71046; 74177; 80048; 80053; 80076; 81003; 82550; 83605; 83690; 83735; 85025; 85027; 85610; 86140; 87040; 93005; 99285; J1650; J1836; J1885; J1956; J2270; J2405; J2543; J7120; Q9967

== ENCOUNTER → 2023-11-08 11:33 | Outpatient (BNV) | payer OTHER, SELFPAY | PROVIDERS: Emergency Provider Emergency Medicine; PCP Nurse Practitioner Family; Visit Provider Internal Medicine Cardiovascular Disease | DX: R00.0 Tachycardia, unspecified (principal) | CPT/HCPCS: 93010 ==

== ENCOUNTER → 2023-11-08 16:17 | Outpatient (BNV) | payer OTHER, SELFPAY | PROVIDERS: Admitting Provider Student in an Organized Health Care Education/Training Program; Emergency Provider Emergency Medicine; PCP Nurse Practitioner Family; Visit Provider Student in an Organized Health Care Education/Training Program | DX: A41.9 Sepsis, unspecified organism (principal); J10.1 Influenza due to other identified influenza virus with other respiratory manifestations; R10.84 Generalized abdominal pain | CPT/HCPCS: 99223; 99232; 99233; 99238 ==

== ENCOUNTER 2023-11-17 08:44 | Outpatient (AMB) | payer OTHER, SELFPAY ==
--- NOTE | 2023-11-17 08:45 | MHC.PC.OV ---
Vital Signs 11/17/23 08:47 11/17/23 09:15 Height 5 ft 8 in Weight 242 lb BMI 36.8 BP 141/73 H 126/62 Blood Pressure Location Rt brachial Lt brachial Position Sitting Sitting Respiration 13 Pulse 84 Pulse Source Pulse Oximeter Temp 98.2 F Temp Source Temporal Artery Scan Pulse Oximetry (%) 95 Oxygen Delivery Method Room Air Intake Visit Reasons: F/U ER High blood pressure /stomach pain Intake Note: Patient is here for a HDF from [facility], patient reports he is having rectum pains still, patient reports the hospital gave zofran for nausea and no other medications. Classified Ad Taker Required: No Accompanied by: Self / Same As Patient Allergies merida [cherries] Adverse Reaction (Verified 11/17/23 08:53) Gastrointestinal Upset Medication List - Last Reconciled 11/17/23 by ROSA Owusu- acetaminophen (Acetaminophen Extra Strength) 1,000 mg PO Q6H PRN dicyclomine 20 mg (2 x 10 mg) PO QIDACHS PRN docusate sodium 100 mg PO DAILY PRN hydrocortisone acetate 25 mg AL BEDTIME omeprazole 40 mg PO DAILY@0630 ondansetron HCl 8 mg PO Q8H PRN polyethylene glycol 3350 (Miralax) 17 grams PO DAILY PRN Tobacco use date assessed: 10/18/23 HPI HPI Comments History of Present Illness Details 28-year-old male here today for hospital discharge follow up. He was admitted 11/08/2023 to [facility] and discharged 11/12/2023. The admitting diagnosis was influenza a with viral sepsis and acute abdominal pain. Workup reviewed. Initially presented with tachycardia, fever, hypertension, leukocytosis, elevated CRP, elevated lactic acid. Normal renal and hepatic functions. Normal UA. Normal chest x-ray. CT of the abdomen and pelvis with no acute findings. Patient was treated with IV fluids, ketorolac, Zosyn, morphine, Zofran, Tamiflu. Initially kept NPO. Consulted by Dr. Rashid HERRON who recommended conservative therapy and follow up in the office as scheduled. All symptoms reported by patient resolve within 72 hours of admission. He was discharged home with self-care. New discharge medications include omeprazole 40 mg 1 tablet daily, Zofran 8 mg p.o. q.8 hours p.r.n. for nausea and vomiting Presents today feeling over better. Cont w/ LUQ pain and rectal pain. Stopped taking omeprazole, only needed zofran x 1. Admits no longer having nausea. Tolerating po intake. Chronic diarrhea. Nothing new or worse. Had an office visit w/ GI on 11/15/23 - no med changes Monday has EGD and Colon scheduled w/ Dr Mike [facility] Medical History No pertinent past medical history Surgical History No pertinent past surgical history Social History Household Members: Family Housing: House Do you presently have visiting nurse or other home services: No Patient Tobacco Use Status: Former Tobacco user Tobacco use type: Cigarette Cigarette Packs Per Day: 1 Cigarettes Per Day: 20 Years Smoked: 7 e-Cigarette/Vaping Use: Never Used Substance Use Type: Marijuana service: No Current occupational status: unemployed Cognitive needs: No Hearing needs: No Vision needs: No Questionnaire Thrive Questionnaire Date Thrive assessed: 11/09/23 Review of Systems Const All systems reviewed & are unremarkable except as noted in HPI and below Physical exam (Primary Care) Vital Signs: Last Vital Signs Temp 98.2 F 11/17/23 08:47 Pulse 84 11/17/23 08:47 Resp 13 11/17/23 08:47 BP 141/73 H 11/17/23 08:47 Pulse Ox 95 11/17/23 08:47 Oxygen Delivery Method Room Air 11/17/23 08:47 BMI result Body Mass Index 36.8 Tobacco/Smoking Status: Tobacco use Status Tobacco use date assessed 10/18/23 11/17/23 08:46 Patient Tobacco Use Status Former Tobacco user 11/17/23 08:46 Tobacco use type Cigarette 11/17/23 08:46 e-Cigarette/Vaping Use Never Used 11/17/23 08:46 Thrive Assessment: Date of Thrive Assessment Date Thrive assessed 11/09/23 11/17/23 08:46 Const Other: Alert oriented very pleasant Sclera is nonicteric Mucous membranes moist RRR Lung sounds clear to auscultation bilat Abdomen tender generally speaking worse over LUQ, guarded during the exam, hypoactive BS x 4 quads Assessment and Plan Assessment & Plan (1) Hospital discharge follow-up: Code(s): Z09 - Encounter for follow-up examination after completed treatment for conditions other than malignant neoplasm Plan: Seen today for hospital discharge follow-up. All of his flu symptoms have resolved. In regards to his abdominal pain and rectal pain this continues as a chronic issue which is being managed by GI. He is scheduled for an EGD and colonoscopy on Monday. As he continues to have the rectal pain I have encouraged him to try using hydrocortisone suppository at bedtime to see if this helps at all. He has found no relief with the omeprazole and has not needed the Zofran. I have encouraged him to follow up with GI about using omeprazole. Encouraged to call prior to his EGD which is scheduled next week. Can keep the script for Zofran on hand in case he does needed for nausea or vomiting in the future. Responding well to dicyclomine however admits some breakthrough pain. Has appointment with dietitian scheduled for December. Reports he had an appointment that he had to reschedule due to being acutely ill. I would like to see him back in another 2-3 weeks just to follow-up. Plan This note is constructed using voice recognition software. While every effort has been made to ensure accuracy in furniture sander, still errors may have been included Sometimes, these errors may affect the content or meaning of the given sentence . Medications: New hydrocortisone acetate 25 mg AL BEDTIME 12 ea 0RF Patient Instructions: Please ask Dr Mike if he wants you to continue to take Omeprazole. Coding Level of Care Code TCM High MDM <= 7 Days Diagnoses Hospital discharge follow-up Z09
[2023-11-17 08:47] VITALS: BP 141/73; PULSE 84; RESP 13; TEMP 36.8; O2SAT 95; BMI 36.8
[2023-11-17 09:15] VITALS: BP 126/62
== END 2023-11-17 09:20 | disposition home or self-care (01) ==
PROVIDERS: PCP Nurse Practitioner Family; Visit Provider Nurse Practitioner Family
DX: Z09 Encounter for follow-up examination after completed treatment for conditions other than malignant neoplasm (principal); K62.89 Other specified diseases of anus and rectum
CPT/HCPCS: 99214

== ENCOUNTER 2023-11-22 12:15 | Day surgery (SDC) | payer OTHER, SELFPAY ==
--- NOTE | 2023-11-21 09:21 | HO.ANESPROP2 ---
Documented by User: Gricelda Howard NP 11/21/23 09:23 HPI - Anesthesia Eval Consult details Narrative: 28yo M for Upper Endoscopy and Colonoscopy [facility] Active Problems Active Problems: All Active Problems (Updated 11/16/23 @ 00:03 by Yoselin Agustin) Elevated systolic blood pressure reading without diagnosis of hypertension (Acute) At risk for malnutrition (Acute) Irritable bowel syndrome with both constipation and diarrhea (Acute) Proctalgia fugax (Acute) Rectal pain (Acute) Cannabis use disorder (Acute) Cyclic vomiting syndrome (Acute) Past Medical History Medical History Irritable bowel syndrome with both constipation and diarrhea Cannabis use disorder Cyclic vomiting syndrome Surgical History Surgical History (Updated 11/21/23 @ 11:49 by Lindsey Josue RN) H/O colonoscopy No pertinent past surgical history Social History Social History Household Members: Family Housing: House Do you presently have visiting nurse or other home services: No Patient Tobacco Use Status: Former Tobacco user Quit Date: 4 yrs ago Tobacco use type: Cigarette Cigarette Packs Per Day: 1 Cigarettes Per Day: 20 Years Smoked: 7 e-Cigarette/Vaping Use: Never Used Substance Use Type: Marijuana service: No Current occupational status: unemployed Cognitive needs: No Hearing needs: No Vision needs: No Meds Allergies Allergy/AdvReac Type Severity Reaction Status Date / Time merida [cherries] AdvReac Gastrointestinal Verified 11/22/23 12:45 Upset Home Medications Medication Instructions Recorded Confirmed Last Taken Type acetaminophen 500 mg tablet 1,000 mg PO Q6H PRN Pain 11/08/23 11/22/23 Unknown History (Acetaminophen Extra Strength) Exam Pertinent Lab Results Pertinent Lab Results: Laboratory Tests 11/10/23 06:13 WBC 5.9 Hgb 13.1 L Hct 39.5 L Plt Count 301 Sodium 142 Potassium 4.0 Chloride 103 Carbon Dioxide 27 BUN 6 L Creatinine 0.84 Narrative Narrative: EKG 10/2023 Vent. Rate : 126 BPM Atrial Rate : 126 BPM P-R Int : 134 ms QRS Dur : 078 ms QT Int : 298 ms P-R-T Axes : 056 064 026 degrees QTc Int : 431 ms Sinus tachycardia Otherwise normal ECG No previous ECGs available Assessment and Plan Assessment Anesthesia Assessment: Chart Reviewed Documented by User: Christopher Marcano MD 11/22/23 13:58 PMFSH Past Medical History Medical History Irritable bowel syndrome with both constipation and diarrhea Cannabis use disorder Cyclic vomiting syndrome Family History Family history of problems with anesthesia: No Surgical History Surgical History (Updated 11/21/23 @ 11:49 by Lindsey Josue RN) H/O colonoscopy No pertinent past surgical history History of Problems with Anesthesia: No Social History Social History Household Members: Family Housing: House Do you presently have visiting nurse or other home services: No Patient Tobacco Use Status: Former Tobacco user Quit Date: 4 yrs ago Tobacco use type: Cigarette Cigarette Packs Per Day: 1 Cigarettes Per Day: 20 Years Smoked: 7 e-Cigarette/Vaping Use: Never Used Substance Use Type: Marijuana service: No Current occupational status: unemployed Cognitive needs: No Hearing needs: No Vision needs: No Meds Allergies Allergy/AdvReac Type Severity Reaction Status Date / Time merida [cherries] AdvReac Gastrointestinal Verified 11/22/23 12:45 Upset Home Medications Medication Instructions Recorded Confirmed Last Taken Type acetaminophen 500 mg tablet 1,000 mg PO Q6H PRN Pain 11/08/23 11/22/23 Unknown History (Acetaminophen Extra Strength) Exam Airway Mallampati Class: I TM Dist: >3cm Neck ROM: Full Loose/Missing/Broken Teeth: No Heart: rrr Lungs: cta b/l Assessment and Plan Assessment Anesthesia Assessment: Anesthesia Plan Discussed Final Anesthetic Review Family History of Problems with Anesthesia: No History of Problems with Anesthesia: No NPO: Yes ASA Class: II Final Preanesthetic Review: No Changes in Pt Med Stat, Meds/Allgs Chart Reviewed, Consent Obtained/Reviewed and Anes Risks/Benef Reviewed Patient Risk: Intermediate Procedure Risk: Intermediate Anesthetic Plan Anesthetic Plan: MAC: Disposition: Standard PACU
[2023-11-22 12:45] VITALS: BMI 36.5
[2023-11-22 13:03] VITALS: BP 134/85; PULSE 91; RESP 15; TEMP 37.2; O2SAT 97
[2023-11-22] MEDS: Lactated Ringers 1,000 ML 100 ML IVCONT (13:14)
--- NOTE | 2023-11-22 13:54 | MHC.SHP ---
Pre-Procedural Eval Section A - 24 Hr Update-Section A only Date of Service: 11/22/23 The patient is an INPATIENT: No Changes since office visit: No Cold of Flu in the past 2 weeks, No New Medical Problems, No Changes in Medication and No Patient answered all questions The patient has been examined within 24 hours of the surgical procedure. The History & Physical has been completed within 30 days and I have reviewed it.: Yes Section B - Complete if H&P > 30 days Chief Complaint: Nausea with vomiting, unspecified Allergies: Allergies Allergy/AdvReac Type Severity Reaction Status Date / Time fuad [edita] AdvReac Gastrointestinal Verified 11/22/23 12:45 Upset Plan I have reviewed the history and physical and performed a pertinent physical examination on my patient. No changes have occurred unless specified. Time Spent With Patient Time: Total time managing care of this patient today ____ minutes.
[2023-11-22 14:46] VITALS: BP 119/83; PULSE 101; RESP 23; TEMP 37.3; O2SAT 100
[2023-11-22 15:01] VITALS: BP 131/75; PULSE 76; RESP 20; O2SAT 99
[2023-11-22 15:15] VITALS: BP 136/86; PULSE 82; RESP 20; O2SAT 99
[2023-11-22 15:30] VITALS: BP 141/87; PULSE 77; RESP 16; TEMP 36.8; O2SAT 100
--- NOTE | 2023-11-22 19:10 | OP_ITS ---
DATE OF SERVICE: 11/22/2023 SURGEON: Shreyas Mike MD INDICATIONS: 1. Nausea and vomiting. 2. Generalized abdominal pain. 3. Abnormal findings in stool. 4. Indeterminate colitis. PREOPERATIVE DIAGNOSIS: POSTOPERATIVE DIAGNOSIS: PROCEDURE PERFORMED: ESTIMATED BLOOD LOSS: COMPLICATIONS: ANESTHESIA: Monitored anesthesia care. ASSISTANTS: SPECIMENS: PROCEDURES PERFORMED: 1. Upper endoscopy with biopsy. 2. Colonoscopy to the terminal ileum with biopsy. DESCRIPTION OF PROCEDURE: A history and physical were performed. The risks and benefits of the procedure were explained to the patient, and informed consent was obtained. The patient was placed in the left lateral decubitus position. The Olympus video gastroscope was introduced into the esophagus, stomach, and duodenum. Examination was performed, and the scope was removed. He was repositioned for colonoscopy. Digital rectal exam was performed and was found to be normal. The Olympus pediatric colonoscope was introduced into the rectum and advanced to the cecum. The cecum was identified by transillumination, palpation, and identification of ileocecal valve. Examination was performed, and the scope was removed. He tolerated both procedures well and was returned to recovery in stable condition. FINDINGS: Upper endoscopy: 1. Esophagus. The esophagus was normal. There was a sliding hiatal hernia. Biopsies were obtained from the EG junction. 2. Stomach. The stomach showed no evidence of masses, ulcers, or colitis. Antral biopsies were obtained. 3. Duodenum, the bulb and second portion were normal. Colonoscopy: The terminal ileum was examined and appeared normal. This was biopsied. The visualized colonic mucosa was normal. There was stool coating the mucosa in the right colon, limiting the sensitivity of examination for detection of small polyps. This was washed and suctioned. No polyps were identified. There was no evidence of active colitis. Random biopsies were obtained from throughout the colon because of the patient's prior history of indeterminate colitis. Retroflexed examination showed no pathology, except for some hypertrophic anal papillae. IMPRESSION: 1. Hiatal hernia. 2. Normal colonoscopy. RECOMMENDATION: Follow up the biopsy results. MD JAVIER Kaiser/OLIVE / [id number]
== END 2023-11-22 15:38 | disposition home or self-care (01) ==
PROVIDERS: PCP Nurse Practitioner Family; Visit Provider Internal Medicine Gastroenterology
PROC: (CPT 45380; principal; 2023-11-22 14:00)
DX: R19.5 Other fecal abnormalities (principal); K62.89 Other specified diseases of anus and rectum; R89.3 Abnormal level of substances chiefly nonmedicinal as to source in specimens from other organs, systems and tissues; R10.84 Generalized abdominal pain; K52.3 Indeterminate colitis; K29.50 Unspecified chronic gastritis without bleeding; B96.81 Helicobacter pylori [H. pylori] as the cause of diseases classified elsewhere; K44.9 Diaphragmatic hernia without obstruction or gangrene; Z86.19 Personal history of other infectious and parasitic diseases; Z79.899 Other long term (current) drug therapy
CPT/HCPCS: 45380; 43239; 88305; 88313; 88342; J2704

== ENCOUNTER 2024-03-08 08:54 | Outpatient (AMB) | payer OTHER, SELFPAY ==
--- NOTE | 2024-03-08 08:57 | MHC.PC.OV ---
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: No Accompanied by: Self / Same As Patient Allergies merida [cherries] Adverse Reaction (Verified 03/08/24 09:55) Gastrointestinal Upset Medication List - Last Reconciled 03/08/24 by ROSA Owusu-JAVIER acetaminophen (Acetaminophen Extra Strength) 1,000 mg PO Q6H PRN dicyclomine 20 mg (2 x 10 mg) PO QIDACHS PRN docusate sodium 100 mg PO DAILY PRN hydrocortisone acetate 25 mg [place] BEDTIME omeprazole 40 mg PO DAILY@30 ondansetron HCl 8 mg PO Q8H PRN polyethylene glycol 3350 (Miralax) 17 grams PO DAILY PRN Tobacco use date assessed: 03/08/24 Dental Screening Dental Screen Date: 03/08/24 Did you have a dental visit in the last 12 months?: Yes Did you have a dental problem in the last 6 months where you did not have access to dental care?: No Was dental information given to patient?: Patient has dentist HPI HPI Comments History of Present Illness Details 28 y/o M w/ obesity, IBS, H pylori ulcer, proctalgia [facility] maintenance Tdap 2018 Here today for CPE GI symptoms improved status post treatment for H pylori. P.r.n. follow up with GI. Requesting STD screen. Denies symptoms. Patient wears glasses. Up-to-date on eye exam. COUNT INCLUDES THE [facility] Medical History (Updated 03/08/24 @ 13:44 by LUCA Owusu) Elevated systolic blood pressure reading without diagnosis of hypertension Irritable bowel syndrome with both constipation and diarrhea Cannabis use disorder Cyclic vomiting syndrome Surgical History H/O colonoscopy No pertinent past surgical history Social History Household Members: Family Housing: House Do you presently have visiting nurse or other home services: No Patient Tobacco Use Status: Former Tobacco user Tobacco use type: Cigarette Cigarette Packs Per Day: 1 Cigarettes Per Day: 20 Years Smoked: 7 e-Cigarette/Vaping Use: Never Used Substance Use Type: Marijuana service: No Current occupational status: unemployed Cognitive needs: No Hearing needs: No Vision needs: No Questionnaire PHQ-9 Over the last 2 weeks, how often have you been bothered by any of the following problems? 1. Little interest or pleasure in doing things: not at all 2. Feeling down, depressed, or hopeless: not at all 3. Trouble falling or staying asleep, or sleeping too much: not at all 4. Feeling tired or having little energy: not at all 5. Poor appetite or overeating: not at all 6. Feeling bad about yourself - or that you are a failure or have let yourself or your family down: not at all 7. Trouble concentrating on things, such as reading the newspaper or watching television: not at all 8. Moving or speaking so slowly that other people could have noticed. Or the opposite - being so fidgety or restless that you have been moving around a lot more than usual: not at all 9. Thoughts that you would be better off or of hurting yourself in some way: not at all Total score: 0 Depression Screening Interpretation: Negative Depression Screening Done: Yes 24356 - PHQ-9 Billing: Yes Source: Developed by Drs. Amando Mcduffie, Aspen Kelly, Brandon Daniels and colleagues, with an educational mateus from [employer]. Thrive Questionnaire Date Thrive assessed: 03/08/24 I am a: Patient What is your living situation today?: I have a steady place to live Within the past 12 months, did the food you bought not last and you didn't have the money to get more?: Never true Within the past 12 months, did you worry whether your food would run out before you got money to buy more?: Never true Do you have trouble paying for medicines?: No Do you have trouble getting transportation to medical appointments?: No Do you have trouble paying your heating and electricity bill?: No Do you have trouble taking care of your child, family member or friend?: No Do you have trouble with day-to-day activities such as bathing, preparing meals, shopping, managing finances, etc.?: No Are you currently unemployed and looking for a job?: No Are you interested in more education?: No Please select the resources that you would like help with: None Currently or been in a relationship where the following occur: no concerns reported THRIVE Score: 0 AUDIT C Alcohol Use Questionnaire (AUDIT-C) 1. How often do you have a drink containing alcohol?: 2-4 times a month 2. How many drinks containing alcohol do you have on a typical day when you are drinking?: 5 or 6 3. How often do you have six or more drinks on one occasion?: Never Total Score: 4 Score Reviewed/Action Taken: Yes HINA-7 AMB Questionnaire HINA-7 Date HINA - 7 assessed: 03/08/24 Feeling nervous, anxious, or on edge: 0 = Not at all Not being able to stop or control worryin = Not at all Worrying too much about different things: 0 = Not at all Trouble relaxin = Not at all Being so restless that it is hard to sit still: 0 = Not at all Becoming easily annoyed or irritable: 0 = Not at all Feeling afraid as if something awful might happen: 0 = Not at all Total HINA-7 score (0-4 normal; 5-9 mild; 10-14 moderate; 15-21 severe): 0 Source: Developed by Drs. Amando Mcduffie, Aspen Kelly, Brandon Daniels and colleagues, with an educational mateus from [employer]. HINA-7 Assessment Billing HINA-7 Assessment Tool: HINA-7 Assessment 17511 Review of Systems Const Details: Constitutional: Denies fever. Skin: Denies rash. Eye: Denies eye pain. ENMT: Denies sore throat and nasal congestion. Respiratory: Denies shortness of breath and cough. Gastrointestinal: Denies nausea, vomiting or abdominal pain. Cardiovascular: Denies chest pain and syncope. Genitourinary: Denies dysuria. Musculoskeletal: Denies back pain and extremity pain. Neurologic: Denies headaches, confusion, and weakness. Psychiatric: Denies suicidal thoughts and substance abuse. Allergy/ Immunologic: Denies impaired immunity. Physical exam (Primary Care) Vital Signs: Last Vital Signs Temp 97.7 F 03/08/24 09:00 Pulse 88 03/08/24 09:00 Resp 14 03/08/24 09:00 BP 118/68 03/08/24 09:00 Pulse Ox 99 03/08/24 09:00 Oxygen Delivery Method Room Air 03/08/24 09:00 BMI result Body Mass Index 37.0 BMI Assessment/Plan discussion: High BMI High, discussed plan: lifestyle Tobacco/Smoking Status: Tobacco use Status Tobacco use date assessed 03/08/24 03/08/24 09:05 Patient Tobacco Use Status Former Tobacco user 03/08/24 08:57 Tobacco use type Cigarette 03/08/24 08:57 e-Cigarette/Vaping Use Never Used 03/08/24 08:57 PHQ-9: PHQ-9 Score PHQ-9: Total score 0 03/08/24 09:56 Depression Screening Interpretation: Negative Thrive Assessment: Date of Thrive Assessment Date Thrive assessed 03/08/24 03/08/24 09:05 Currently or been in a relationship where the following occur: no concerns reported Const Other: General: Well developed, well nourished, in no acute distress. Appears stated age. Head: Normocephalic, atraumatic. Eyes: Pupils are equal, round and reactive to light and accommodation. Conjunctivae are clear. Vision grossly normal. Ears: TMs clear AU, EACS WNL Nose: Patent, without discharge. Mouth: There are no ulcers or lesions noted. No inflammation, no post nasal drip, no plaques nor exudates. Neck: Supple, no adenopathy or thyromegaly. Lungs: Clear to auscultation bilaterally. No rales, rhonchi or wheeze noted. Good air flow in all [place]. Heart: Regular rate and rhythm. No murmurs, click, rubs or gallops are noted. Abdomen: Bowel sounds present in all quadrants. The abdomen is soft, nontender, with no masses or organomegaly noted. No hernias are noted. Musculoskeletal: Joints are nontender, without swelling, redness, or effusions. Range of motion is observed to be normal. Pulses: Peripheral pulses are equal and palpable bilaterally. Extremities: No clubbing, cyanosis nor edema is noted. Neurologic: Gait and station normal. Cranial Nerves 2-12 intact. Motor strength grossly symmetrical and intact. No sensory loss. Balance normal. Skin: No rashes, ulcers, or lesions noted. Turgor is good. Skin color is good. Hair and nails are without abnormalities. Psych: Normal eye contact, affect and mood appropriate, and normal interactions. Patient is alert and appropriate to context. Assessment and Plan Assessment & Plan (1) Encounter for general adult medical examination without abnormal findings: Code(s): Z00.00 - Encounter for general adult medical examination without abnormal findings (2) Encounter for screening examination for sexually transmitted disease: Code(s): Z11.3 - Encounter for screening for infections with a predominantly sexual mode of transmission (3) Class 2 obesity with body mass index (BMI) of 37.0 to 37.9 in adult: Code(s): E66.9 - Obesity, unspecified; Z68.37 - Body mass index [BMI] 37.0-37.9, adult Qualifiers: Obesity type: due to excess calories Serious obesity comorbidity presence: without serious comorbidity Qualified Code(s): E66.09 - Other obesity due to excess calories; Z68.37 - Body mass index [BMI] 37.0-37.9, adult Orders: Orders Syphilis Screen Today Z11.3 - Encounter for screening for infections with a predominantly sexual mode of transmission HIV Ab/Ag Today Z11.3 - Encounter for screening for infections with a predominantly sexual mode of transmission CT NG by PCR Today Z11.3 - Encounter for screening for infections with a predominantly sexual mode of transmission Patient Instructions: Return to office in 1 year for complete physical exam, sooner as needed. Health screenings for men You should visit your health care provider regularly, even if you feel healthy. The purpose of these visits is to: Screen for medical issues Assess your risk for future medical problems Encourage a healthy lifestyle Update vaccinations and other preventive care services Help you get to know your provider in case of an illness Information Even if you feel fine, you should still see your provider for regular checkups. These visits can help you avoid problems in the future. For example, the only way to find out if you have high blood pressure is to have it checked regularly. High blood sugar and high cholesterol level also may not have any symptoms in the early stages. Simple blood tests can check for these conditions. There are specific times when you should see your provider or receive specific health screenings. The [place] Preventive Services Task Force publishes a list of recommended screenings. Below are screening guidelines for men ages 40 to 64. BLOOD PRESSURE SCREENING Have your blood pressure checked at least once every year. Watch for blood pressure screenings in your area. Ask your provider if you can stop in to have your blood pressure checked. Ask your provider if you need your blood pressure checked more often if: You have diabetes, heart disease, kidney problems, or are overweight or have certain other health conditions You have a first-degree relative with high blood pressure You are Black Your blood pressure top number is from 120 to 129 mm Hg, or the bottom number is from 70 to 79 mm Hg If the top number is 130 mm Hg or greater or the bottom number is 80 mm Hg or greater, this is considered stage 1 hypertension. Schedule an appointment with your provider to learn how you can lower your blood pressure. Effects of age on blood pressure CHOLESTEROL SCREENING Cholesterol screening should begin at age 35 for men with no known risk factors for coronary heart disease. Repeat cholesterol screening should take place: Every 5 years for men with normal cholesterol levels More often if changes occur in lifestyle (including weight gain and diet) More often if you have diabetes, heart disease, kidney problems, or certain other conditions COLORECTAL CANCER SCREENING If you are under age 45, talk to your provider about getting screened. You may need to be screened if you have a strong family history of colon cancer or polyps. Screening may also be considered if you have risk factors such as a history of inflammatory bowel disease or polyps. If you are age 45 to 75, you should be screened for colorectal cancer. There are several screening tests available: A stool-based fecal occult blood (gFOBT) or fecal immunochemical test (FIT) every year A stool sDNA test every 1 to 3 years Flexible sigmoidoscopy every 5 years or every 10 years with stool testing FIT done every year CT colonography (virtual colonoscopy) every 5 years Colonoscopy every 10 years You may need a colonoscopy more often if you have risk factors for colorectal cancer, such as: Ulcerative colitis A personal or family history of colorectal cancer A history of growths in your colon called adenomatous polyps DENTAL EXAM Go to the dentist once or twice every year for an exam and cleaning. Your dentist will evaluate if you have a need for more frequent visits. DIABETES SCREENING All adults who do not have risk factors for diabetes should be screened starting at age 35 and repeated every 3 years. If you have other risk factors for diabetes, such as a first degree relative with diabetes, overweight or obesity, high blood pressure, prediabetes, or a history of heart disease, you may be tested more often. If you are overweight and have other risk factors, such as high blood pressure and are planning to become , screening is recommended. EYE EXAM Have an eye exam every 2 to 4 years ages 40 to 54 and every 1 to 3 years ages 55 to 64. Your provider may recommend more frequent eye exams if you have vision problems or glaucoma risk. Have an eye exam that includes an examination of your retina (back of your eye) at least every year if you have diabetes. IMMUNIZATIONS Commonly needed vaccines include: Flu shot: get one every year COVID-19 vaccine: ask your provider what is best for you Tetanus-diphtheria and acellular pertussis (Tdap) vaccine: have as one of your tetanus-diphtheria vaccines if you did not receive it as an adolescent Tetanus-diphtheria: have a booster (or Tdap) every 10 years Varicella vaccine: receive 2 doses if you never had chickenpox or the varicella vaccine and were born in 1979 or after Hepatitis B vaccine: receive 2, 3, or 4 doses, depending on your exact circumstances, if you did not receive these as a child or adolescent, until age 59 Shingles (herpes zoster) vaccine: at or after age 50 Ask your provider if you should receive other immunizations, especially if you have certain medical conditions, such as diabetes or are at increased risk for some diseases such as pneumonia. INFECTIOUS DISEASE SCREENING Screening for hepatitis C: all adults ages 18 to 79 should get a one-time test for hepatitis C. Screening for human immunodeficiency virus (HIV): all people ages 15 to 65 should get a one-time test for HIV. Depending on your lifestyle and medical history, you may need to be screened for infections such as syphilis, chlamydia, and other infections. LUNG CANCER SCREENING You should have an annual screening for lung cancer with low-dose computed tomography (LDCT) if: You are age 50 to 80 years AND You have a 20 pack-year smoking history AND You currently smoke or have quit within the past 15 years OSTEOPOROSIS SCREENING If you are age 50 to 64 and have risk factors for osteoporosis, you should discuss screening with your provider. Risk factors can include long-term steroid use, low body weight, smoking, heavy alcohol use, having a fracture after age 50, or a family history of hip fracture or osteoporosis. Osteoporosis PHYSICAL EXAM All adults should visit their provider from time to time, even if they are healthy. The purpose of these visits is to: Screen for diseases Assess risk of future medical problems Encourage a healthy lifestyle Update vaccinations and other preventive care services Maintain a relationship with a provider in case of an illness Your height, weight, and body mass index (BMI) should be checked at every exam. During your exam, your provider may ask you about: Depression and anxiety Diet and exercise Alcohol and tobacco use Safety, such as use of seat belts and smoke detectors Your medicines and risk for interactions PROSTATE CANCER SCREENING If you're 55 through 69 years old, before having the test, talk to your provider about the pros and cons of having a PSA test. Ask about: Whether screening decreases your chance of dying from prostate cancer. Whether there is any harm from prostate cancer screening, such as side effects from testing or overtreatment of cancer when discovered. Whether you have a higher risk of prostate cancer than others. If you are age 55 or younger, screening is not generally recommended. You should talk with your provider about if you have a higher risk for prostate cancer. Risk factors include: Having a family history of prostate cancer (especially a brother or father) Being If you choose to be tested, the PSA blood test is repeated over time (yearly or less often), though the best frequency is not known. Prostate examinations are no longer routinely done on men with no symptoms. Prostate cancer SKIN EXAM Your provider may check your skin for signs of skin cancer, especially if you're at high risk. People at high risk include those who have had skin cancer before, have close relatives with skin cancer, or have a weakened immune system. TESTICULAR EXAM The [place] Preventive Services Task Force (USPSTF) now recommends against performing testicular self-exams. Doing testicular self-exams has been shown to have little to no benefit. Coding Level of Care Code Est Pt Prev Care 18-39y(16928) Diagnoses Encounter for general adult medical examination without abnormal findings Z00.00 Encounter for screening examination for sexually transmitted disease Z11.3 Class 2 obesity due to excess calories without serious comorbidity with body mass index (BMI) of 37.0 to 37.9 in adult E66.09; Z68.37 Obesity type: due to excess calories Serious obesity comorbidity presence: without serious comorbidity Additional Codes HINA-7 Assessment Billing - HINA-7 Assessment Tool: HINA-7 Assessment 13775 ([id number])
[2024-03-08 09:00] VITALS: BP 118/68; PULSE 88; RESP 14; TEMP 36.5; O2SAT 99; BMI 37.0
== END 2024-03-08 10:13 | disposition home or self-care (01) ==
PROVIDERS: PCP Nurse Practitioner Family; Visit Provider Nurse Practitioner Family
DX: Z00.00 Encounter for general adult medical examination without abnormal findings (principal); Z11.3 Encounter for screening for infections with a predominantly sexual mode of transmission; E66.09 Other obesity due to excess calories; Z68.37 Body mass index [BMI] 37.0-37.9, adult
CPT/HCPCS: 99395

== ENCOUNTER 2024-03-08 10:07 | Outpatient (REF) | payer OTHER, SELFPAY ==
[2024-03-11 08:37] LABS: Syphilis Screen Nonreactive (Nonreactive)
[2024-03-11 08:45] LABS: HIV AB/AG Nonreactive (Nonreactive); HIV Num 1 0.05 S/CO (0.00-0.99)
== END 2024-03-08 10:08 | disposition home or self-care (01) ==
LOC: HO.WFDLDS 10:07
PROVIDERS: Visit Provider Nurse Practitioner Family
DX: Z11.3 Encounter for screening for infections with a predominantly sexual mode of transmission (principal)
CPT/HCPCS: 36415; 86780; 87389

== ENCOUNTER 2024-08-03 23:59 | Emergency (ER) | payer OTHER, SELFPAY ==
--- NOTE | ~2024-08-03 | XR_ITS ---
EXAMINATION: XR SHOULDER, RIGHT CLINICAL INFORMATION: Trauma with question of dislocation COMPARISON: None available. TECHNIQUE: Four views of the right shoulder. FINDINGS: There is an anterior/inferior dislocation of the right glenohumeral joint. No fractures are seen. The AC joint appears normal. XR/XR shoulder RT min 2V IMPRESSION: Anterior/inferior dislocation of the right glenohumeral joint. Electronically signed by: Diogo Rodriguez MD 08/04/2024 12:58 AM ILYA ZUNIGA
--- NOTE | ~2024-08-03 | XR_ITS ---
EXAMINATION: XR SHOULDER, RIGHT CLINICAL INFORMATION: Post reduction COMPARISON: Right shoulder radiograph 08/04/2024. TECHNIQUE: 3 view series of the right shoulder FINDINGS: Initial AP radiograph obtained at 2:33 PM 08/04/2024 demonstrates persistent anteroinferior dislocation of the right humeral head. The visualized left ribs and lung are normal in appearance. A transscapular radiograph obtained at 2:33 AM additionally shows persistent dislocation. Final AP radiograph obtained at 2:39 AM demonstrates grossly normal glenohumeral alignment and joint spacing. Normal appearance of the acromioclavicular joint. Contour irregularity of the humeral head suggestive of a Hill-Sachs injury is noted. XR/XR shoulder RT min 2V IMPRESSION: *Final postreduction AP view of the right shoulder demonstrating grossly normal glenohumeral joint spacing and alignment. *Finding suspicious for a Hill-Sachs injury of the humeral head. Electronically signed by: Norm Davenport MD 08/04/2024 03:10 AM ILYA ZUNIGA
[2024-08-04] VITALS (17 sets, daily range): BP systolic 126–161; BP diastolic 72–93; PULSE 76–101; RESP 13–26; TEMP 36.2–36.8; O2SAT 99–100; BMI 36.2
[2024-08-04] MEDS: Acetaminophen 325 MG TABLET 975 MG PO (00:18)
[2024-08-04] MEDS: Ibuprofen 600 MG TABLET PO (00:18)
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
--- NOTE | 2024-08-04 02:17 | MHC.EDTECH ---
Patient was placed on the conveyor monitor,continuous O2 and CO2 monitoring per providers request,RN/RT/MD at [facility]
[2024-08-04] MEDS: ondansetron HCL 4 MG/2 ML VIAL IVPUSH (02:22)
[2024-08-04] MEDS: Ketamine HCl 500 MG/5 ML VIAL 216 MG IVPUSH (02:24)
--- NOTE | 2024-08-04 02:47 | PC.NURSE ---
Conscious sedation performed. Time out: 02:26AM for right shoulder reduction. Pt dislocated right shoulder earlier today at work (see triage). 20g IV access established by this RN prior to the procedure in left forearm without difficulty or ultrasound. Mother is also present with patient. Ketamine & Zofran administered as ordered. Staff present for procedure include: Dong Cloud (respiratory therapist), Dr. Darcy Torres (ED physician), Linnea Arellano (RN), and Shivani Tian (ED PCT). All emergency supplies present and paperwork signed, including consents. conveyor monitor, pulse oximeter in place. NSR. Vital signs stable. Confirmed successful shoulder reduction with xray and sling applied to right shoulder. Mother returned to room after procedure was complete. Pt is sleepy but talkative. Care ongoing.
== END 2024-08-04 03:52 | disposition home or self-care (01) ==
PROVIDERS: Emergency Provider Emergency Medicine
DX: S43.004A Unspecified dislocation of right shoulder joint, initial encounter (principal); M25.511 Pain in right shoulder; Y04.8XXA Assault by other bodily force, initial encounter; Y93.89 Activity, other specified; Y92.89 Other specified places as the place of occurrence of the external cause; Y99.0 Civilian activity done for income or pay
CPT/HCPCS: 23650; 73030; 96374; 96375; 96376; 99284; J2405

== ENCOUNTER 2024-08-23 09:00 | Outpatient (AMB) | payer OTHER, SELFPAY ==
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
[2024-08-23 09:17] VITALS: BMI 35.0
--- OUTSIDE RECORDS SUMMARY | 2024-08-28 05:59 | XMS_ITS ---
Author Organization [facility] Address [address] [place] [phone] Care Team Providers Care Bartender Name Role Phone Korin Butts Primary Care Provider Unavailandreea Mike Jr, Shreyas Welch REASON FOR VISIT refill dicyclomine MEDICATIONS Medication SIG (Take, Route, Fr equency, Duration) Notes Start Date End Date Status Dicyclomine HCl 20 MG 1 Orally 2-4 times a day for 30 days 10/27/2023 Active Encounters Encounter Location Date Provider Diagnosis [facility] [address] [place] [phone] 02/15/2024 Shreyas Mike Jr PLAN OF TREATMENT Medication Medication Name Sig Start Date Stop Date Notes Dicyclomine HCl 20 MG 1 Orally 2-4 times a day for 30 days 10/27/2023
--- OUTSIDE RECORDS SUMMARY | 2024-08-28 05:59 | XMS_ITS ---
Author Organization [facility] Address [address] [place] [phone] Care Team Providers Care Saw Feeder Name Role Phone Korin Butts Primary Care Provider Joey Mike Jr, Shreyas Welch [phone] REASON FOR VISIT R/F REQUEST/DICYCLOMINE/[facility] MEDICATIONS Medication SIG (Take, Route, Fr equency, Duration) Notes Start Date End Date Status Dicyclomine HCl 20 MG 1 tablet Orally 2- 4 times a day for 30 days 10/27/2023 Active Encounters Encounter Location Date Provider Diagnosis [facility] [address] [place] [phone] 12/12/2023 Shreyas Mike Jr PLAN OF TREATMENT Medication Medication Name Sig Start Date Stop Date Notes Dicyclomine HCl 20 MG 1 tablet Orally 2- 4 times a day for 30 days 10/27/2023
--- OUTSIDE RECORDS SUMMARY | 2024-08-28 05:59 | XMS_ITS ---
Author Organization [facility] Address [address] [place] [phone] Care Team Providers Care Community Organization Aide Name Role Phone Korin Butts Primary Care Provider Unavailandreea Mike Jr, Shreyas Welch [phone] REASON FOR VISIT refill dicyclomine MEDICATIONS Medication SIG (Take, Route, Fr equency, Duration) Notes Start Date End Date Status Dicyclomine HCl 20 MG 1 Orally 2-4 times a day for 30 days 10/27/2023 Active Encounters Encounter Location Date Provider Diagnosis [facility] [address] [place] [phone] 07/02/2024 Shreyas Mike Jr PLAN OF TREATMENT Medication Medication Name Sig Start Date Stop Date Notes Dicyclomine HCl 20 MG 1 Orally 2-4 times a day for 30 days 10/27/2023
--- OUTSIDE RECORDS SUMMARY | 2024-08-28 06:00 | XMS_ITS | Patient Health Record ---
Author Organization [facility] Address [address] [place] [address] Care Team Providers Care Water Plant Maintenance Mechanic Name Role Phone Benjamín Korin Primary Care Provider Shreyas Sawyer Jr Unavailable ALLERGIES Allergen (clinical drug ingredient) Drug/Non Drug Allergy documented on EMR Reaction Allergy Type Onset Date Status Petersen Unknown Drug Allergy Active RESULTS Component Value Reference Range Notes Calprotectin, Fecal Reviewed date:10/19/2023 09:21:41 AM Interpretation: Performing Lab:[facility], [address] [place] [phone] Notes/Report: Calprotectin, Fecal 743 Reference Range: <50 Normal 50-120 Borderline >120 Elevated Calprotectin in Crohn's disease and ulcerative colitis can be five to several thousand times above the reference population (50 mcg/g or less). Levels are usually 50 mcg/g or less in healthy patients and with irritable bowel syndrome. Repeat testing in 4-6 weeks is suggested for borderline values. THIS TEST WAS PERFORMED AT: [facility] [address] [place] [address] RUSSEL SELF MD,PHD,BLANCA Pathology Reviewed date:11/27/2023 08:54:50 AM Interpretation: Performing Lab:[facility], [address] [place] [phone] Notes/Report: REASON FOR REFERRAL No Information MEDICATIONS Medication SIG (Take, Route, Frequency, Duration) Notes Start Date End Date Status Clarithromycin 500 MG 1 tablet Orally ev esteban 12 hrs for 14 days 11/27/2023 Active Omeprazole 20 MG 1 Orally b.i.d. for 14 days 11/27/2023 Active Dicyclomine HCl 20 MG 1 Orally 2-4 times a day for 30 days 10/27/2023 Active MiraLax (colon prep) 17 GM/SCOOP mixed with Gatorade or Crystal Light Orally begin at 5:00 p.m. the day before the procedure for 1 day 11/15/2023 Active Amoxicillin 500 MG 2 capsules Orally Tw ice a day for 14 days 11/27/2023 Active IMMUNIZATIONS Vaccine Route Administration Date Status Comme nts Influenza Unknown 11/15/2023 Refused SOCIAL HISTORY Tobacco Use: Social History Observation Description Date Details (start date - stop date) Never Smoker NA - NA Sex Assigned At : Social History Observation Description Sex Assigned At Unknown Tobacco Use/Smoking Question Answer Notes Patient is a nonsmoker Alcohol Screen Question Answer Notes Did you have a drink contain ing alcohol in the past year? Yes How often did you have a dri nk containing alcohol in the past year? Monthly or less (1 point) How many drinks did you have on a typical day when you were drinking in the past year? 1 or 2 drinks (0 point) How often did you have 6 or more drinks on one occasion in the past year? 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 876477183 VITAL SIGNS Temperature 99.3 degrees Fahrenheit 11/15/2023 Blood pressure diastolic 00 mm Hg 11/15/2023 Height 5 ft 8 in in 11/15/2023 Blood pressure systolic 000 mm Hg 11/15/2023 Weight 240 lb 4 oz lbs 11/15/2023 BMI 36.53 kg/m2 11/15/2023 Encounters Encounter Location Date Provider Diagnosis [facility] [place] [facility] [address] [place], [place] [id number] 11/22/2023 Shreyas Mike Jr Heme positive stool R19.5 ; Indeterminate colitis K52.3 ; Intractable vomiting with nausea, unspecified vomiting type R11.2 and Abdominal pain, generalized R10.84 [facility] [address] [place] [phone] 11/15/2023 Shreyas Mike Jr Nausea and vomiting, unspecified vomiting type R11.2 ; Generalized abdominal pain R10.84 ; Abnormal findings in stool R19.5 and Indeterminate colitis K52.3 [facility] [address] [place] [address] 10/27/2023 Shreyas Mike Jr [facility] [address] [place] [phone] 11/27/2023 Shreyas Mike Jr [facility] [address] [place] [phone] 12/12/2023 Shreyas Mike Jr [facility] [address] [place] [phone] 02/15/2024 Shreyas Mike Jr [facility] [address] [place] [phone] 07/02/2024 Shreyas Mike Jr ASSESSMENTS Encounter Date Diagnosis Assessment Notes Treatment Notes Treatment Clinical Notes 11/22/2023 Heme positive stool (ICD-10 - R19.5) 11/22/2023 Indeterminate coliti s (ICD-10 - K52.3) 11/15/2023 Generalized abdomina l pain (ICD-10 - R10.84) 11/15/2023 Nausea and vomiting, unspecified vomiting type (ICD-10 - R11.2) 11/22/2023 Intractable vomiting with nausea, unspecified vomiting type (ICD-10 - R11.2) 11/15/2023 Abnormal findings in stool (ICD-10 - R19.5) Endoscopy material was printed 11/22/2023 Abdominal pain, generalized (ICD-10 - R10.84) 11/15/2023 Indeterminate coliti s (ICD-10 - K52.3) PLAN OF TREATMENT Future Test Test Name Order Date UPPER GI ENDOSCOPY 11/15/2023 COLONOSCOPY 11/15/2023 Insurance Providers Payer Name Payer Address Payer Phone Subscriber Number Group Number Insured Name Patient Relationship to Insured Coverage Start Date Coverage End Date [facility] [address] [address] [place], [place] [phone] [id number] RAMA MANZANARES Self - patient is the insured MEDICAL (GENERAL) HISTORY Medical History History ICD Code Indeterminate colitis, diagn osed at age 18 2013, previous treatment mesalamine, steroids, and Humira, patient stopped Humira on his own. Colonoscopy,2021 [place], normal per patient report. Surgical History Surgery Date(Month/Year) Hospitalization History Reason Date(Month/Year) 2 hospitalizations, 10/11 epi ploic appendagitis/proctalgia fugax , 11/11 viral influenza with sepsis 2023
== END 2024-08-23 09:34 | disposition home or self-care (01) ==
PROVIDERS: Visit Provider Physician Assistant
DX: S43.004A Unspecified dislocation of right shoulder joint, initial encounter (principal); M75.22 Bicipital tendinitis, left shoulder
CPT/HCPCS: 99203; G2211

== ENCOUNTER → 2024-08-23 09:00 | Outpatient (BNVA) | payer OTHER, SELFPAY | PROVIDERS: Visit Provider Physician Assistant | DX: M75.22 Bicipital tendinitis, left shoulder (principal); S43.004A Unspecified dislocation of right shoulder joint, initial encounter; W19.XXXA Unspecified fall, initial encounter; Y93.9 Activity, unspecified; Y92.9 Unspecified place or not applicable; Y99.9 Unspecified external cause status | CPT/HCPCS: 99202 ==

== ENCOUNTER 2024-09-24 09:46 | Outpatient (RCR) | payer OTHER, SELFPAY ==
--- NOTE | 2024-09-05 10:56 | MHC.PT.EP ---
[facility] [place] Office [place] [facility] [place] [facility] [address] [place] [address] [phone] F: [phone] F: [phone] F: [phone] F: [phone] Physical Therapy Plan of Care Date of Evaluation: 09/05/24 Date of Surgery: NA Diagnosis: Unspecified dislocation of R shoulder joint Bicipital tendinitis, L shoulder Dislocation of R shoulder joint, bicipital tendinitis. L shoulder Assessment: Diogo is a 28 year old male who is referred to PT for Unspecified dislocation of R shoulder joint, Bicipital tendinitis, L shoulder , Dislocation of R shoulder joint, bicipital tendinitis. L shoulder . He initially had pain in L shoulder however currently reports of having no pain in L shoulder. He stated he would like to focus on his R shoulder only. He injured his R shoulder secondary to a fall on outstretched arm about 4 weeks back. His shoulder was reduced in the ED and then immobilized with a sling. On PT examination he presented with TTP over anterior aspect of shoulder- pec, bicep tendon and supraspinatus, 6/10 pain in R shoulder with reaching behind the head and back, R SL and lifting weights, decreased R shoulder ROM, decreased R shoulder and scap strength, and altered posture. He lives alone and is independent with all ADLS but has pain with showering and dressing. He is unemployed. He would benefit from skilled PT to address the aforementioned impairments and improve tolerance to functional activities. Frequency and Duration: The patient will be seen 2/week for 6 weeks Short Term Goals: 1. Pt will have 50% decrease in pain which will enable him to sleep on R side in 2 weeks. 2. Pt will be able to move his trunk through full plane of motion without pain which will enable him to dress his upper body and shower without pain in 4 weeks Alf Goals: 1. Pt will demonstrate an increase in muscle strength by 1 grade which will enable him to carry weights without pain in 6 weeks. 2. Pt will be independent with all HEP and return to PLOF in 6 weeks. Treatment Plan: Modalities to reduce pain, spasms and effusion. Manual therapy to restore motion and function. Therapeutic exercise to improve strength and flexibility. Neuromuscular re-education for posture and balance. Therapeutic activities to return to functional activities of daily living. Electronically signed by: Isha Martinez PT DPT Please sign and return to therapist. Thank you for your referral.
--- NOTE | 2024-10-01 13:45 | MHC.PT.DC ---
[facility] [place] Office [place] [facility] [place] [facility] [address] [place] Motley [address] [phone] F: [phone] F: [phone] F: [phone] F: [phone] Physical Therapy Discharge Report Diagnosis: Unspecified dislocation of R shoulder joint Bicipital tendinitis, L shoulder Dislocation of R shoulder joint, bicipital tendinitis. L shoulder Date of Surgery: NA Date of Evaluation: 09/05/24 Date of Discharge: 10/01/24 Treatments to Date: 2 Cancellations to Date: 5 No Shows to Date: 0 Discharge Status: Visit Non-compliance Discharge Summary: Diogo attended 2 appointments and canceled 5. He is therefore being d/c from PT for non compliance per our attendance policy. Electronically signed by: Isha Martinez PT DPT Please sign and return to therapist. Thank you for your referral.
== END 2024-10-01 13:45 | disposition home or self-care (01) ==
LOC: HO.PT 09:46
PROVIDERS: PCP Nurse Practitioner Family; Visit Provider Physician Assistant
DX: S43.004D Unspecified dislocation of right shoulder joint, subsequent encounter (principal); M75.22 Bicipital tendinitis, left shoulder
CPT/HCPCS: 97110; 97112; 97161; 97530

== ENCOUNTER 2024-12-28 19:39 | Emergency (ER) | payer OTHER, SELFPAY ==
--- NOTE | ~2024-12-28 | XR_ITS ---
CLINICAL HISTORY: post reduction 2 view right shoulder Comparison: CR - XR SHOULDER RT MIN 2V - 12/28/24 20:26 EDT CR/SR - XR SHOULDER RT MIN 2V - 08/04/24 02:33 EST Findings: Interval relocation of the glenohumeral joint. No erosions. No radiopaque foreign body. Chronic appearing lateral humeral head impaction. Regional soft tissue swelling. IMPRESSION: Interval relocation of the glenohumeral joint. This document has been electronically signed by: Khang Wiggins MD on 12/28/2024 22:47:50
--- NOTE | ~2024-12-28 | XR_ITS ---
CLINICAL HISTORY: deformity, hx dislocation 4 view right shoulder Comparison: CR/SR - XR SHOULDER RT MIN 2V - 08/04/24 02:33 EST Findings: Anteroinferior glenohumeral joint dislocation with chronic impaction injury of the humeral head along the inferior glenoid. No significant arthritic change. No erosions. No radiopaque foreign body. Regional soft tissue swelling. IMPRESSION: Anteroinferior glenohumeral joint dislocation. This document has been electronically signed by: Khang Wiggins MD on 12/28/2024 20:44:10
[2024-12-28 19:51] VITALS: BP 150/87; PULSE 80; RESP 18; TEMP 37.3; O2SAT 99; BMI 36.9
--- NOTE | 2024-12-28 19:51 | ED.GENADULT ---
HPI - General Adult General Chief complaint: Extremity Problem Stated complaint: right dislocated shoulder Time Seen by Provider: 12/28/24 21:16 Source: patient, RN notes reviewed and old records reviewed Mode of arrival: ambulatory Limitations: no limitations History of Present Illness ED Provider: Loi DOLAN narrative: 29 year old male presents for evaluation of right shoulder pain. He has a history of right shoulder dislocation. He reports on about an hour and a half prior to arrival he was lifting his right arm and ?it just popped out. ? He reports 10/10 pain to the right shoulder and decreased range of motion He denies any falls or trauma to the area Related Data Home Medications ?Medication ?Instructions ?Recorded ?Confirmed acetaminophen 500 mg tablet 1,000 mg PO Q6H PRN Pain 11/08/23 08/23/24 (Acetaminophen Extra Strength) Previous Rx's ?Medication ?Instructions ?Recorded dicyclomine 10 mg capsule 20 mg (2 x 10 mg) PO QIDACHS PRN 10/17/23 abd pain #90 caps docusate sodium 100 mg capsule 100 mg PO DAILY PRN Constipation 10/17/23 #30 caps polyethylene glycol 3350 17 17 g PO DAILY PRN constipation 10/17/23 gram/dose oral powder (Miralax) #119 grams omeprazole 40 mg capsule,delayed 40 mg PO DAILY@0630 #30 caps 11/12/23 release ondansetron HCl 8 mg tablet 8 mg PO Q8H PRN nausea and 11/12/23 vomiting #20 tabs hydrocortisone acetate 25 mg 25 mg HI BEDTIME #12 ea 11/17/23 rectal suppository ibuprofen 600 mg tablet 600 mg PO Q8H PRN fever or pain 08/04/24 #30 tabs ibuprofen 800 mg tablet 800 mg PO Q8H PRN pain 30 days #90 08/23/24 tabs Allergies Allergy/AdvReac Type Severity Reaction Status Date / Time merida [cherries] AdvReac Gastrointestinal Verified 12/28/24 19:52 Upset Review of Systems Constitutional: Constitutional: Denies body ache(s), Denies chills, Denies fever(s) and Denies headache(s) Eyes: Eyes: Denies blurry vision ENT: Denies headache(s) Musculoskeletal: Musculoskeletal: Reports arthralgias, Reports joint swelling and Reports limited range of motion Integumentary/Breasts: Skin/Breast: Denies rash Neurologic: Denies headache(s) [facility] Past Medical History Medical History Elevated systolic blood pressure reading without diagnosis of hypertension Irritable bowel syndrome with both constipation and diarrhea Cannabis use disorder Cyclic vomiting syndrome Surgical History H/O colonoscopy No pertinent past surgical history Social History Social History (Updated 08/23/24 @ 09:19 by DARLYN Gutierrez) Household Members: Family Housing: House Do you presently have visiting nurse or other home services: No Patient Tobacco Use Status: Former Tobacco user Tobacco use type: Cigarette Cigarette Packs Per Day: 1 Cigarettes Per Day: 20 Years Smoked: 7 e-Cigarette/Vaping Use: Never Used Substance Use Type: Marijuana Advance Directives: No Advance Directives Information Provided: No Do you have a plan to hurt others: No Plan service: No Current occupational status: employed 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 Cognitive needs: No Hearing needs: No Vision needs: No Physical Exam ED Vital Signs: Vital Signs - 24 hr 12/28/24 19:51 12/28/24 21:29 12/28/24 21:35 Temperature 99.1 F Pulse Rate 80 82 Respiratory Rate 18 18 17 Blood Pressure 150/87 H 144/64 H Pulse Oximetry 99 96 Oxygen Delivery Method Room Air Room Air BMI result Body Mass Index 36.9 Const General: healthy appearing, alert and awake Nutritional Appearance: well nourished Orientation/consciousness: patient oriented x3 HENMT Head: Yes normocephalic and Yes atraumatic Eyes Eyelids: Yes eyelids normal Conjunctivae: conjunctivae normal Sclerae: sclerae normal Corneas: corneas normal Pupils: Equal, round and reactive pupils present EOM: EOMs intact bilaterally Neck Neck: Yes full ROM Resp Effort & Inspection: normal respiratory effort, able to speak in complete sentences and not labored Cardio Rate: regular rate Rhythm: regular rhythm Skin General skin exam: elasticity normal Neuro General: patient oriented x3 Cranial nerves: Yes Equal, round and reactive pupils present and Yes Bilaterally intact EOM present Cognition (Neuro): normal cognition Extrem Other: Appears obvious deformity to the right shoulder with anterior displacement of the humeral head. This area is tender to palpation. Course Course Course Narrative: This is a rapid medical exam performed by Divya Ramos NP: Additional HPI, ROS, PE not included below will be deferred to primary provider. 12/28/241950 Patient is a 29-year-old male with history of right shoulder dislocation in Jul presenting with right shoulder pain and deformity. +CMS distal. Last ate ice cream a few minutes ago. Plan: xray Medications Administered Discontinued Medications Generic Name Dose Route Start Last Admin Trade Name Saba PRN Reason Stop Dose Admin Hydromorphone HCl 1 mg 12/28/24 21:21 12/28/24 21:35 Hydromorphone Hcl 1 Mg/Ml Syringe IVPUSH 12/28/24 21:22 1 mg ONCE ONE Administration Protocol Ondansetron HCl 4 mg 12/28/24 21:21 12/28/24 21:35 Ondansetron Hcl 4 Mg/2 Ml Vial IVPUSH 12/28/24 21:22 4 mg ONCE ONE Administration Procedures Orthopedic Joint Reduction Joint #1: Time Out Performed: Yes Side: right Joint Reduction Location: shoulder Analgesia: other (Dilaudid 1mg IV) Shoulder Technique Used (if applicable): traction/counter-traction and scapula manipulation Technique used: traction/counter-traction and direct manipulation Post-reduction neuro exam: intact Post-reduction vascular: intact Post Reduction X-Ray Obtained: Yes Post Reduction X-Ray Results: reduced Splint Applied: No (sling applied) Patient Tolerated Procedure: well Additional Comments: Reduction performed with myself and attending, Dr. Jesus with analgesia, but no procedural sedation Medical Decision Making Medical Decision Making MDM Narrative: 29-year-old male presents for evaluation of right shoulder pain. Has a history of shoulder dislocation. X-ray confirms anterior shoulder dislocation. The patient has an IV, we will give IV pain medication with Dilaudid 1 mg IV and Zofran. If we can control the patient's pain, and I will attempt to reduce this without procedural sedation. Differential Diagnosis Differential Diagnoses: The differential diagnosis associated with the presentation includes Shoulder dislocation Shoulder fracture Shoulder sprain Contusion Discharge Plan Discharge Clinical Impression: Anterior dislocation of right shoulder Patient Disposition: Home, Self-Care Instructions: Shoulder Dislocation (ED) Additional Instructions: Your x-ray shows that your shoulder was dislocated and this was reduced in the ER I recommend that you do not lift her arm above your with shoulder until cleared by Orthopedics In sometimes you need surgery to prevent further dislocations, but call Orthopedics and schedule follow-up You may also benefit from outpatient physical therapy You may use ibuprofen/Tylenol for pain Prescriptions: No Action docusate sodium 100 mg Capsule 100 mg PO DAILY PRN (Reason: Constipation) Qty: 30 0RF dicyclomine 10 mg Capsule 20 mg PO QIDACHS PRN (Reason: abd pain) Qty: 90 0RF polyethylene glycol 3350 [Miralax] 17 gram/dose powder 17 g PO DAILY PRN (Reason: constipation) Qty: 119 0RF acetaminophen [Acetaminophen Extra Strength] 500 mg Tablet 1,000 mg PO Q6H PRN (Reason: Pain) omeprazole 40 mg Capsule,Delayed Release(Dr/Ec) 40 mg PO DAILY@0630 Qty: 30 1RF ondansetron HCl 8 mg tablet 8 mg PO Q8H PRN (Reason: nausea and vomiting) Qty: 20 0RF ibuprofen 600 mg tablet 600 mg PO Q8H PRN (Reason: fever or pain) Qty: 30 0RF hydrocortisone acetate 25 mg suppository 25 mg HI BEDTIME Qty: 12 0RF ibuprofen 800 mg tablet 800 mg PO Q8H PRN (Reason: pain) 30 Days Qty: 90 3RF Referrals: Jacques Scott MD [Physician] - (recurrent shoulder dislocation) Print Language: Turkish
--- NOTE | 2024-12-28 21:11 | MHC.EDTECH ---
Tech walked into the patients room to check how he was feeling and to obtain new vital signs. The tech asked if his arm needed to be repositioned. The patient stated that he needs to get the doctor and nurse in there right away. The tech told him that they would speak with the nurse about their pain. The patient then became verbally abusive and started swearing that the tech stating that they were in fart pain and that they needed to do something about it right now. The tech asked the patient to be calm and stop swearing and the patient sat up in the bed and continued to yell, swear and make vulgar statements about how they are in pain and that we are useless. RN and Charge nurse made aware.
[2024-12-28 21:29] VITALS: BP 144/64; PULSE 82; RESP 18; O2SAT 96
[2024-12-28 21:35] VITALS: RESP 17
[2024-12-28] MEDS: HYDROmorphone HCl 1 MG/ML SYRINGE IVPUSH (21:35)
[2024-12-28] MEDS: ondansetron HCL 4 MG/2 ML VIAL IVPUSH (21:35)
--- OUTSIDE RECORDS SUMMARY | 2024-12-28 22:03 | XMS_ITS ---
Author Organization [facility] Address [address] [place] [phone] Care Team Providers Care Cemetery Counselor Name Role Phone Korin Butts Primary Care Provider Joey Mike Jr, Shreyas Welch REASON FOR VISIT refill dicyclomine Medications Medication SIG (Take, Route, Fr equency, Duration) Notes Start Date End Date Status Dicyclomine HCl 20 MG 1 Orally 2-4 times a day for 30 days 10/27/2023 Active Encounters Encounter Location Date Provider Diagnosis [facility] [address] [place] [phone] 07/02/2024 Shreyas Mike Jr Plan Of Treatment Medication Medication Name Sig Start Date Stop Date Notes Dicyclomine HCl 20 MG 1 Orally 2-4 times a day for 30 days 10/27/2023 Progress Notes * RAMA MANZANARES ADOB:1995 (28 yo M)Acc No.[id number]:07/02/2024 Patient:?RAMA MANZANARES :1995???Age:28 Y???Sex:Male Address:[address] [place] [address], [address] * Refills? Refill Dicyclomine HCl Tablet, 20 MG, Orally, 120, 1, 2-4 times a day, 30 days, Refills=6 * true * Date:? Generated for Yann whitt/Sarahi/eTransmitting on:?12/28/2024 10:03 PM EDT
--- OUTSIDE RECORDS SUMMARY | 2024-12-28 22:03 | XMS_ITS | Encounter Summary ---
Author Organization [facility] Address [address] [place], [place] [phone] Phone Care Team Providers Care Air Brake Adjuster Name Role Phone Lexa Wheeler MD Primary Care Provider Unavailabl e Encounter Details Date Type Department Care Team (Late st Contact Info) Description 03/11/2014 Documentation [facility] [place] Family Medicine [address] [place] [address] Family Medicine, Physician [address], [place] [id number] Social History Tobacco Use Types Packs/Day Years Used Date Smoking Tobacco: Never Assessed Sex and Gender Information Value Date Recorded Sex Assigned at Not on file Legal Sex Male 4:54 PM EDT Gender Identity Not on file Sexual Orientation Not on file documented as of this encounter Plan of Treatment Not on file documented as of this encounter Visit Diagnoses Not on filedocumented in this encounter Care Teams Air Brake Adjuster Relationship Specialty Start Date End Date Lexa Wheeler MD PCP - General 04/28/17 documented as of this encounter
--- OUTSIDE RECORDS SUMMARY | 2024-12-28 22:03 | XMS_ITS | Encounter Summary ---
Author Organization [facility] Address [address] [place], [place] [phone] Phone Care Team Providers Care Severity Of Illness Coordinator Name Role Phone Lexa Wheeler MD Primary Care Provider Unavailabl e Encounter Details Date Type Department Care Team (Late st Contact Info) Description 05/13/2014 Documentation [facility] [place] [address] [place] [address] Family Medicine, Physician [address] [place], [place] [address] Social History Tobacco Use Types Packs/Day Years [...] on filedocumented in this encounter Care Teams Severity Of Illness Coordinator Relationship Specialty Start Date End Date Lexa Wheeler MD PCP - General 04/28/17 documented as of this encounter
--- OUTSIDE RECORDS SUMMARY | 2024-12-28 22:03 | XMS_ITS | Encounter Summary ---
Author Organization [facility] Address [address] [place], [place] [phone] Phone Care Team Providers Care Family Manager Name Role Phone Lexa Wheeler MD Primary Care Provider Unavailabl e Encounter Details Date Type Department Care Team (Late st Contact Info) Description 05/12/2014 Documentation [facility] [place] [address] [place] [address] Family Medicine, Physician [address] [place], [place] [address] Social History Tobacco Use Types Packs/Day Years [...] on filedocumented in this encounter Care Teams Family Manager Relationship Specialty Start Date End Date Lexa Wheeler MD PCP - General 04/28/17 documented as of this encounter
--- OUTSIDE RECORDS SUMMARY | 2024-12-28 22:03 | XMS_ITS | Patient Health Record ---
Author Organization [facility] Address [address] [place] [phone] Care Team Providers Care Retail Field Supervisor Name Role Phone Korin Butts Primary Care Provider Shreyas Sawyer Jr Unavailable [phone] Allergies Allergen (clinical drug ingredient) Drug/Non Drug Allergy documented on EMR Reaction Allergy Type Onset Date Status Petersen Unknown Drug Allergy Active Reason For Referral No Information Medications Medication SIG (Take, Route, Frequency, Duration) Notes [...] a day for 14 days 11/27/2023 Active Immunizations Vaccine Route Administration Date Status Comme nts Influenza Unknown 11/15/2023 Refused Social History Tobacco Use: Social History Observation Description Date Details (start date - stop date) Never Smoker NA - NA Tobacco Use/Smoking Question Answer Notes Patient is [...] Never (0 point) Points 1 Interpretation Negative Problems Problem Type SNOMED Code ICD Code Onset Dates Problem Status W/U Status Risk Notes Problem 637717952 Generalized abdominal pain (R10.84) Active confirmed Problem 796814144 Abnormal finding s in stool (R19.5) Active confirmed Problem 107504875 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 Problem 16627058 Nausea and vomiting, unspecified vomiting type (R11.2) Active confirmed Encounters Encounter Location Date Provider Diagnosis [facility] [address] [place] [phone] 02/15/2024 Shreyas Mike Jr [facility] [address] [place] [phone] 07/02/2024 Shreyas Mike Jr [facility] [address] [place] [phone] 10/08/2024 Shreyas Mike Jr Plan Of Treatment Future Test Test Name Order Date UPPER GI ENDOSCOPY 11/15/2023 COLONOSCOPY 11/15/2023 Insurance Providers Payer Name Payer Address Payer Phone Subscriber Number Group Number Insured Name Patient Relationship to Insured Coverage Start Date Coverage End Date [facility] [address] [address] [place], [place] [id number] GLENNA RAMA Self - patient is the insured Medical (General) History Medical History History ICD Code Indeterminate colitis, diagn osed at age 18 2013, previous treatment mesalamine, steroids, and Humira, patient stopped Humira on his own. Colonoscopy,2021 [place], normal per patient report. Surgical History Surgery Date(Month/Year) Hospitalization History Reason Date(Month/Year) 2 hospitalizations, 10/11 epi ploic appendagitis/proctalgia fugax , 11/11 viral influenza with sepsis 2023
--- OUTSIDE RECORDS SUMMARY | 2024-12-28 22:03 | XMS_ITS | Encounter Summary ---
Author Organization [facility] Address [address] [place] [address] Phone Care Team Providers Care Health Underwriter Name Role Phone Lexa Wheeler MD Primary Care Provider Unavailabl e Encounter Details Date Type Department Care Team (Late st Contact Info) Description 05/04/2017 Conversion Encounter [facility] - [address] [address] Social History Tobacco Use Types Packs/Day Years Used Date Smoking Tobacco: Never Comments:Never smoker Sex and Gender Information Value Date Recorded Sex Assigned at Not on file Legal Sex Male 4:54 PM EDT Gender Identity Not on file Sexual Orientation Not on file documented as of this encounter Plan of Treatment Not on file documented as of this encounter Visit Diagnoses Not on filedocumented in this encounter Care Teams Health Underwriter Relationship Specialty Start Date End Date Lexa Wheeler MD PCP - General 04/28/17 documented as of this encounter
--- OUTSIDE RECORDS SUMMARY | 2024-12-28 22:03 | XMS_ITS | Encounter Summary ---
Author Organization [facility] Address [address] [place], [place] [phone] Phone Care Team Providers Care Geospatial Intelligence Analyst Name Role Phone Lexa Wheeler MD Primary Care Provider Unavailabl e Encounter Details Date Type Department Care Team (Late st Contact Info) Description 01/06/2017 Documentation [facility] [place] Family Medicine [address] [place] [address] Family Medicine, Physician [address] [place] [address] Social History Tobacco Use Types Packs/Day Years [...] on filedocumented in this encounter Care Teams Geospatial Intelligence Analyst Relationship Specialty Start Date End Date Lexa Wheeler MD PCP - General 04/28/17 documented as of this encounter
--- OUTSIDE RECORDS SUMMARY | 2024-12-28 22:03 | XMS_ITS ---
Author Organization [facility] Address [address] [place] [phone] Care Team Providers Care Therapist Physical Name Role Phone Korin Butts Primary Care Provider Shreyas Sawyer Jr REASON FOR VISIT refill Medications Medication SIG (Take, Route, Fr equency, Duration) Notes Start Date End Date Status Dicyclomine HCl 20 MG 1 Orally 2-4 times a day for 30 days 10/27/2023 Active Encounters Encounter Location Date Provider Diagnosis [facility] [address] [place] [phone] 10/08/2024 Shreyas Mike Jr Plan Of Treatment Medication Medication Name Sig Start Date Stop Date Notes Dicyclomine HCl 20 MG 1 Orally 2-4 times a day for 30 days 10/27/2023 Progress Notes * RAMA MANZANARES ADOB:1995 (28 yo M)Acc No.[id number]:10/08/2024 Patient:?RAMA MANZANARES :1995???Age:28 Y???Sex:Male Address:[address] [place] [address], [address] * Refills? Refill Dicyclomine HCl Tablet, 20 MG, Orally, 120, 1, 2-4 times a day, 30 days, Refills=6 * true * Date:? Generated for Yann whitt/Sarahi/eTransmitting on:?12/28/2024 10:03 PM EDT
--- OUTSIDE RECORDS SUMMARY | 2024-12-28 22:03 | XMS_ITS | Encounter Summary ---
Author Organization [facility] Address [address] [place], [place] [phone] Phone Care Team Providers Care Computer Numerical Control Machinist Name Role Phone Lexa Wheeler MD Primary Care Provider Unavailabl e Encounter Details Date Type Department Care Team (Late st Contact Info) Description 05/22/2014 Documentation [facility] [place] Family Medicine [address] [place] [address] Family Medicine, Physician [address], [place] [address] Social History Tobacco Use Types Packs/Day Years [...] on filedocumented in this encounter Care Teams Computer Numerical Control Machinist Relationship Specialty Start Date End Date Lexa Wheeler MD PCP - General 04/28/17 documented as of this encounter
--- OUTSIDE RECORDS SUMMARY | 2024-12-28 22:03 | XMS_ITS ---
Author Organization [facility] Address [address] [place] [phone] Care Team Providers Care Computational Linguist Name Role Phone Korin Butts Primary Care Provider Joey Mike Jr, Shreyas Welch REASON FOR VISIT refill dicyclomine Medications Medication SIG (Take, Route, Fr equency, Duration) Notes Start Date End Date Status Dicyclomine HCl 20 MG 1 Orally 2-4 times a day for 30 days 10/27/2023 Active Encounters Encounter Location Date Provider Diagnosis [facility] [address] [place] [phone] 02/15/2024 Shreyas Mike Jr Plan Of Treatment Medication Medication Name Sig Start Date Stop Date Notes Dicyclomine HCl 20 MG 1 Orally 2-4 times a day for 30 days 10/27/2023 Progress Notes * RAMA MANZANARES ADOB:1995 (28 yo M)Acc No.[id number]:02/15/2024 Patient:?RAMA MANZANARES :1995???Age:28 Y???Sex:Male Address:[address] [place] [address], [address] * Refills? Refill Dicyclomine HCl Tablet, 20 MG, Orally, 120, 1, 2-4 times a day, 30 days, Refills=6 * true * Date:? Generated for Yann whitt/Sarahi/eTransmitting on:?12/28/2024 10:02 PM EDT
--- OUTSIDE RECORDS SUMMARY | 2024-12-28 22:03 | XMS_ITS | Encounter Summary ---
Author Organization [facility] Address [address] [place], [place] [address] Phone Care Team Providers Care Economic Adviser Name Role Phone Lexa Wheeler MD Primary Care Provider Unavailabl e Encounter Details Date Type Department Care Team (Late st Contact Info) Description 12/15/2015 Documentation [facility] [place] Family Medicine [address] [place] [address] Family Medicine, Physician [address] [place], [place] [address] Social History Tobacco Use Types Packs/Day Years [...] on filedocumented in this encounter Care Teams Economic Adviser Relationship Specialty Start Date End Date Lexa Wheeler MD PCP - General 04/28/17 documented as of this encounter
[2024-12-28 23:10] VITALS: BP 143/82; PULSE 91; RESP 16; TEMP 37.1; O2SAT 98
== END 2024-12-28 23:11 | disposition home or self-care (01) ==
PROVIDERS: Emergency Provider Internal Medicine; PCP Nurse Practitioner Family
DX: S43.004A Unspecified dislocation of right shoulder joint, initial encounter (principal); M25.511 Pain in right shoulder; X50.9XXA Other and unspecified overexertion or strenuous movements or postures, initial encounter; Y93.9 Activity, unspecified; Y92.9 Unspecified place or not applicable; Y99.8 Other external cause status; Z79.899 Other long term (current) drug therapy
CPT/HCPCS: 73030; 96374; 96375; 99284; J1171; J2405

== ENCOUNTER → 2024-12-28 19:52 | Outpatient (BNV) | payer OTHER, SELFPAY | PROVIDERS: PCP Nurse Practitioner Family; Visit Provider Radiology Diagnostic Radiology | DX: S43.004A Unspecified dislocation of right shoulder joint, initial encounter (principal) | CPT/HCPCS: 73030 ==

== ENCOUNTER 2025-01-22 08:51 | Outpatient (AMB) | payer OTHER, SELFPAY ==
--- NOTE | 2025-01-22 08:54 | A.OFFVIS_ITS ---
Vital Signs 01/22/25 08:58 Height 5 ft 8 in Weight 242 lb BMI 36.8 Handedness Right Intake Visit Reasons: ED f/u s/p RT shoulder dislocation Intake Note: Diogo is a 29 year old right hand dominant male who presents today for an ER follow up of his right shoulder dislocation. Patient was seen at the ED on 12/28/24 when he was lifted his right arm and felt his shoulder pop out of place. He states his shoulder was put back in place at the ED. Patient is taking tylenol with relief. Allergies merida [cherries] Adverse Reaction (Verified 12/28/24 19:52) Gastrointestinal Upset Medication List - Last Reconciled 01/22/25 by Rona Dorsey PA-C acetaminophen (Acetaminophen Extra Strength) 1,000 mg PO Q6H PRN dicyclomine 20 mg (2 x 10 mg) PO QIDACHS PRN docusate sodium 100 mg PO DAILY PRN hydrocortisone acetate 25 mg HI BEDTIME ibuprofen 600 mg PO Q8H PRN ibuprofen 800 mg PO Q8H PRN 30 days omeprazole 40 mg PO DAILY@0630 ondansetron HCl 8 mg PO Q8H PRN polyethylene glycol 3350 (Miralax) 17 grams PO DAILY PRN HPI HPI ED f/u s/p RT shoulder dislocation: Details: The patient is a 29-year-old male presenting with recurrent right shoulder disl ocation. The initial traumatic dislocation occurred during a football game caused by direct arm contact approx 4 months ago, followed by a subsequent dislocation during stretching approximately one month ago. The patient experiences stiffness and occasional instability, particularly with overhead movements or lifting tasks, affecting work functionality. He has undergone 6 weeks of physical therapy after the first incident, yet continues to experience arm stiffness and instability. [facility] Medical History Elevated systolic blood pressure reading without diagnosis of hypertension Irritable bowel syndrome with both constipation and diarrhea Cannabis use disorder Cyclic vomiting syndrome Surgical History H/O colonoscopy No pertinent past surgical history Social History Household Members: Family Housing: House Do you presently have visiting nurse or other home services: No Patient Tobacco Use Status: Former Tobacco user Tobacco use type: Cigarette Cigarette Packs Per Day: 1 Cigarettes Per Day: 20 Years Smoked: 7 e-Cigarette/Vaping Use: Never Used Substance Use Type: Marijuana service: No Current occupational status: employed 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 Cognitive needs: No Hearing needs: No Vision needs: No Review of Systems Const All systems reviewed & are unremarkable except as noted in HPI and below Physical Exam Vital Signs: BMI result Body Mass Index 36.8 Const General: cooperative, healthy appearing, comfortable, no acute distress, well developed and alert Orientation/consciousness: patient oriented x3 HEENT Head: Yes normal to inspection, Yes normocephalic and Yes atraumatic Eyes General: appearance normal, both eyes and all related structures Resp Effort & Inspection: normal respiratory effort and able to speak in complete sentences Cardio Rate: regular rate Peripheral pulses: Peripheral pulses 2+ throughout GI Palpation (GI): Soft to palpation Skin Lesions: no lesions Rashes: no rashes Neuro General: patient oriented x3 Extrem Other: Right shoulder: Normal to inspection. Tenderness over the bicipital groove and along the deltoid region of the shoulder. Forward flexion to 100, external rotation to 90, internal rotation to Back pocket. 5/5 RTC strength. Positive O?Hermilo?s. + Apprehension test. NVI. Results Reviewed Results Reviewed: xrays of the right shoulder from the ED show successful reduction Assessment & Plan Assessment & Plan (1) Dislocation of right shoulder joint: Code(s): S43.004A - Unspecified dislocation of right shoulder joint, initial encounter Category: Medical Plan: I will order an MRI arthrogram for further evaluation of the right shoulder to assess structural integrity and plan for potential surgical intervention to address recurrent dislocation. The patient should avoid high-risk maneuvers that predispose the shoulder to further dislocation, including overhead lifting. Arrangements will be made for the MRI, and follow-up will be scheduled based on imaging findings. He was given a work note today to avoid lifting over head or behind plane of the body. Patient was informed and verbally consented to the use of an ambient scribe for clinic note documentation during this visit. Orders: Orders MR shoulder RT w con Today S43.004A - Unspecified dislocation of right shoulder joint, initial encounter [place] arthrogram shoulder RT Today M19.011 - Primary osteoarthritis, right shoulder Coding Level of Care Code Est Pt Level 3 (99285) Complex EM visit Add On G2211 Diagnoses Dislocation of right shoulder joint S43.004A
[2025-01-22 08:58] VITALS: BMI 36.8
--- OUTSIDE RECORDS SUMMARY | 2025-01-22 09:17 | XMS_ITS | Encounter Summary ---
Author Organization [facility] Address [address] [place], [place] [phone] Phone Care Team Providers Care Air Conditioning Technician Name Role Phone Lexa Wheeler MD Primary Care Provider Unavailabl e Encounter Details Date Type Department Care Team (Late st Contact Info) Description 03/11/2014 Documentation [facility] [place] Family Medicine [address] [place] [address] Family Medicine, Physician [address], [place] [address] Social History Tobacco Use Types Packs/Day Years [...] filedocumented in this encounter Care Teams Air Conditioning Technician Relationship Specialty Start Date End Date Lexa Wheeler MD PCP - General 04/28/17 documented as of this encounter
--- OUTSIDE RECORDS SUMMARY | 2025-01-22 09:17 | XMS_ITS | Encounter Summary ---
Author Organization [facility] Address [address] [place], [place] [address] Phone Care Team Providers Care Virtual Assistant Name Role Phone Lexa Wheeler MD Primary Care Provider Unavailabl e Encounter Details Date Type Department Care Team (Late st Contact Info) Description 05/22/2014 Documentation [facility] [place] Family Medicine [address] [place] [address] Family Medicine, Physician [address], [place] [address] Social History Tobacco Use Types Packs/Day Years [...] on filedocumented in this encounter Care Teams Virtual Assistant Relationship Specialty Start Date End Date Lexa Wheeler MD PCP - General 04/28/17 documented as of this encounter
--- OUTSIDE RECORDS SUMMARY | 2025-01-22 09:17 | XMS_ITS | Patient Health Record ---
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 Problem 56264359 Nausea and vomiting, unspecified vomiting type (R11.2) Active confirmed Encounters Encounter Location Date Provider Diagnosis [facility] [address] [place] [phone] 02/15/2024 Shreyas Mike Jr [facility] [address] [place] [phone] 07/02/2024 Shreyas Mike Jr [facility] [address] [place] [phone] 10/08/2024 Shreyas Mike Jr Plan Of Treatment Future Test Test Name Order Date UPPER GI ENDOSCOPY 11/15/2023 COLONOSCOPY 11/15/2023 Insurance Providers Payer Name Payer Address Payer Phone Subscriber Number Group Number Insured Name Patient Relationship to Insured Coverage Start Date Coverage End Date [facility] [address] [address] [place], [place] [id number] GLENNA RAMA Self - patient is the insured Medical (General) History Medical History History ICD Code Indeterminate colitis, diagn osed at age 18 2013, previous treatment mesalamine, steroids, and Humira, patient stopped Humira on his own. Colonoscopy,2021 [place], normal per patient report. Surgical History Surgery Date(Month/Year) Hospitalization History Reason Date(Month/Year) 2 hospitalizations, 10/11 epi ploic appendagitis/proctalgia [place] , 11/11 viral influenza with sepsis 2023
--- OUTSIDE RECORDS SUMMARY | 2025-01-22 09:17 | XMS_ITS | Encounter Summary ---
Author Organization [facility] Address [address] [place], [place] [address] Phone Care Team Providers Care Angle Shear Operator Name Role Phone Lexa Wheeler MD Primary Care Provider Unavailabl e Encounter Details Date Type Department Care Team (Late st Contact Info) Description 05/12/2014 Documentation [facility] [place] [address] [place] [address] Family Medicine, Physician [address] [place], [place] [address] Social History Tobacco Use Types Packs/Day Years [...] on filedocumented in this encounter Care Teams Angle Shear Operator Relationship Specialty Start Date End Date Lexa Wheeler MD PCP - General 04/28/17 documented as of this encounter
--- OUTSIDE RECORDS SUMMARY | 2025-01-22 09:17 | XMS_ITS | Encounter Summary ---
Author Organization [facility] Address [address] [place], [place] [address] Phone Care Team Providers Care Talent Manager Name Role Phone Lexa Wheeler MD Primary Care Provider Unavailabl e Encounter Details Date Type Department Care Team (Late st Contact Info) Description 01/06/2017 Documentation [facility] [place] Family Medicine [address] [place] [address] Family Medicine, Physician [address] [place] [address] Social History Tobacco Use Types Packs/Day Years [...] on filedocumented in this encounter Care Teams Talent Manager Relationship Specialty Start Date End Date Lexa Wheeler MD PCP - General 04/28/17 documented as of this encounter
--- OUTSIDE RECORDS SUMMARY | 2025-01-22 09:17 | XMS_ITS ---
Author Organization [facility] Address [address] [place] [phone] Care Team Providers Care Diabetes Manager Name Role Phone Korin Butts Primary Care Provider Joey Mike Jr, Shreyas Welch [phone] REASON FOR VISIT refill dicyclomine Medications Medication SIG (Take, Route, Fr equency, Duration) Notes Start Date End Date Status Dicyclomine HCl 20 MG 1 Orally 2-4 times a day for 30 days 10/27/2023 Active Encounters Encounter Location Date Provider Diagnosis [facility] [address] [place] [phone] 02/15/2024 Shreyas Mike Jr Plan Of Treatment Medication Medication Name Sig Start Date Stop Date Notes Dicyclomine HCl 20 MG 1 Orally 2-4 times a day for 30 days 10/27/2023 Progress Notes * RAMA MANZANARES ADOB:1995 (28 yo M)Acc No.[id number]:02/15/2024 Patient:?RAMA MANZANARES :1995???Age:28 Y???Sex:Male Address:[address] [place] [address], [address] * Refills? Refill Dicyclomine HCl Tablet, 20 MG, Orally, 120, 1, 2-4 times a day, 30 days, Refills=6 * true * Date:? Generated for Yann whitt/Sarahi/eTransmitting on:?01/22/2025 09:17 AM EDT
--- OUTSIDE RECORDS SUMMARY | 2025-01-22 09:17 | XMS_ITS ---
Author Organization [facility] Address [address] [place] [phone] Care Team Providers Care Carpenter Repair Name Role Phone Korin Butts Primary Care Provider Joey Mike Jr, Shreyas Welch [phone] REASON FOR VISIT refill dicyclomine Medications Medication SIG (Take, Route, Fr equency, Duration) Notes Start Date End Date Status Dicyclomine HCl 20 MG 1 Orally 2-4 times a day for 30 days 10/27/2023 Active Encounters Encounter Location Date Provider Diagnosis [facility] [address] [place] [phone] 07/02/2024 Shreyas Mike Jr Plan Of Treatment Medication Medication Name Sig Start Date Stop Date Notes Dicyclomine HCl 20 MG 1 Orally 2-4 times a day for 30 days 10/27/2023 Progress Notes * RAMA MANZANARES ADOB:1995 (28 yo M)Acc No.[id number]:07/02/2024 Patient:?RAMA MANZANARES :1995???Age:28 Y???Sex:Male Address:[address] [place] [address], [address] * Refills? Refill Dicyclomine HCl Tablet, 20 MG, Orally, 120, 1, 2-4 times a day, 30 days, Refills=6 * true * Date:? Generated for Yann whitt/Sarahi/eTransmitting on:?01/22/2025 09:17 AM EDT
--- OUTSIDE RECORDS SUMMARY | 2025-01-22 09:17 | XMS_ITS ---
Author Organization [facility] Address [address] [place] [phone] Care Team Providers Care Inhalation Therapy Aide Name Role Phone Korin Butts Primary Care Provider Shreyas Sawyer Jr [phone] REASON FOR VISIT refill Medications Medication SIG (Take, Route, Fr equency, Duration) Notes Start Date End Date Status Dicyclomine HCl 20 MG 1 Orally 2-4 times a day for 30 days 10/27/2023 Active Encounters Encounter Location Date Provider Diagnosis [facility] [address] [place] [phone] 10/08/2024 Shreyas Mike Jr Plan Of Treatment Medication Medication Name Sig Start Date Stop Date Notes Dicyclomine HCl 20 MG 1 Orally 2-4 times a day for 30 days 10/27/2023 Progress Notes * RAMA MANZANARES ADOB:1995 (28 yo M)Acc No.[id number]:10/08/2024 Patient:?RAMA MANZANARES :1995???Age:28 Y???Sex:Male Address:[address] [place] [address], [address] * Refills? Refill Dicyclomine HCl Tablet, 20 MG, Orally, 120, 1, 2-4 times a day, 30 days, Refills=6 * true * Date:? Generated for Yann whitt/Sarahi/eTransmitting on:?01/22/2025 09:17 AM EDT
--- OUTSIDE RECORDS SUMMARY | 2025-01-22 09:17 | XMS_ITS | Encounter Summary ---
Author Organization [facility] Address [address] [place], [place] [id number] Phone Care Team Providers Care Blood Bank Booking Clerk Name Role Phone Lexa Wheeler MD Primary Care Provider Unavailabl e Encounter Details Date Type Department Care Team (Late st Contact Info) Description 05/13/2014 Documentation [facility] [place] Family Medicine [address] [place] [address] Family Medicine, Physician [address] [place], [place] [id number] Social History Tobacco Use Types Packs/Day Years [...] on filedocumented in this encounter Care Teams Blood Bank Booking Clerk Relationship Specialty Start Date End Date Lexa Wheeler MD PCP - General 04/28/17 documented as of this encounter
--- OUTSIDE RECORDS SUMMARY | 2025-01-22 09:17 | XMS_ITS | Encounter Summary ---
Author Organization [facility] Address [address] [place] [address] Phone Care Team Providers Care Special Education Math Teacher Name Role Phone Lexa Wheeler MD Primary Care Provider Unavailabl e Encounter Details Date Type Department Care Team (Late st Contact Info) Description 05/04/2017 Conversion Encounter [facility] - [address] [address] Social History Tobacco Use Types Packs/Day Years [...] on filedocumented in this encounter Care Teams Special Education Math Teacher Relationship Specialty Start Date End Date Lexa Wheeler MD PCP - General 04/28/17 documented as of this encounter
--- OUTSIDE RECORDS SUMMARY | 2025-01-22 09:17 | XMS_ITS | Clinical Summary ---
Author Organization [facility] Address [address] [place] [address] Phone Care Team Providers Care Retrofit Installer Name Role Phone Lexa Wheeler MD Primary Care Provider Unavailabl e Allergies No known active allergies Medications HUMIRA PEN 40 MG/0.8ML Pen-injector Kit 10 7 Active Benzoyl Peroxide 5 % lotionIndicatio ns:Acne vulgaris Apply daily to affected skin 30 mL 11 7 Active Additional Information Patient not taking.Reported on 06/21/2018 Active Problems Problem Noted Date Diagnosed Date Overweight 06/21/2018 Vision abnormalities 06/21/2018 Family history of elevated blood lipids 06/21/20 18 Family history of heart disease 06/21/2018 Acne vulgaris 07/11/2017 Ulcerative colitis with complication Immunizations Immunization Administration Dates Next Due DTaP 5 01/31/2002, 8,05/18/1997,03/17,01/15/1997 HPV Vaccine 9 Valent 09/08/2016 HPV, Quadrivalent 07/23/2014,06/20/2014 Hep A, Adult 09/08/2016 Hep A, ped/adol 06/20/2014 Hep B, ped/adol 05/18/1997,1996,1996 Hib (PRP-T) 04/10/1998, 7,03/17/1997,01/15 IPV 03/01/2002, 2,03/17/1997,01/15 Influenza Split 07/27/2011 Influenza, injectable, quadrivalent 09/08/2016 Influenza, injectable, quadr ivalent, preservative free 06/21/2018,07/11/2017,06/20/2014 Influenza, injectable, trivalent 06/09/2009 MMR 01/31/2002,04/10/1998 Meningococcal Conj (Menactra) MCV4P 09/08/2016,0 06/09/2009 Td (adult) (Tenivac), 5 Lf t etanus toxoid, PF, adsorbed 06/21/2018 Tdap 06/09/2009 Varicella 06/09/2009,04/10/1998 Family History Medical History Relation Name Comments No Known Problems Father diogo No Known Problems Half-Brother 2 yvrose No Known Problems Half-Brother 3 margoth No Known Problems Half-Sister 1 constantino No Known Problems Half-Sister 2 heaven Hypertension Mother gonzález Asthma Other Breast cancer Other Diabetes Other Relation Name Status Comments Father diogo Alive Father: healthy Half-Brother 1 varsha Alive Half brother (M): healthy, Half-Brother 2 yvrose Alive Half-Brother 3 margoth Alive Half-Sister 1 constantino Alive Half-Sister 2 heaven Alive Mother gonzález Alive Mother: Hyperte nsion Other Family history of Diabetes mellitus, Family history of Cancer, breast, Family history of Asthma, Family history of Hypertension Social History Tobacco Use Types Packs/Day Years Used Date Smoking Tobacco: Every Day Smokeless Tobacco: Current Comments:Never smoker Sex and Gender Information Value Date Recorded Sex Assigned at Not on file Legal Sex Male 4:54 PM EDT Gender Identity Not on file Sexual Orientation Not on file Last Filed Vital Signs Vital Sign Reading Time Taken Comments Blood Pressure 126/80 06/21/2018 10:04 AM EDT Pulse 87 06/21/2018 10:04 AM EDT Temperature 36.7 ??C (98.1 ??F) 06/21/2018 10:04 AM E DT Respiratory Rate - - Oxygen Saturation 100% 05/19/2014 12:00 AM EDT Inhaled Oxygen Concentration - - Weight 102 kg (225 lb 4 oz) 06/21/2018 10:04 AM EDT Height 172.1 cm (5' 7.75 ) 06/21/2018 10:04 AM E DT Body Mass Index 34.5 06/21/2018 10:04 AM EDT Plan of Treatment Health Maintenance Due Date Last Done Comments Influenza Vaccines (#1) 2024 06/21/20 18, 07/11/2017, 09/08/2016, Additional history exists COVID-19 Vaccine (2023- season) 2024 DTaP,Tdap,and Td Vaccines (8 - Td or Tdap) 06/21/2028 06/21/2018, 06/09/2009, 01/31/2002, Additional history exists Hepatitis B Vaccines Completed 05/18/1997, 1996, 1996 HIB Vaccines Completed 04/10/1998, 04/20, 03/17/1997, Additional history exists MMR Vaccines Completed 01/31/2002, 04/10/1998 IPV Vaccines Completed 03/01/2002, 01/16, 03/17/1997, Additional history exists Varicella Vaccines Completed 06/09/2009, 04/10/1998 HPV Vaccines Completed 09/08/2016, 01/2014, 06/20/2014 Hepatitis A Vaccines Completed 09/08/2016, 06/20/20 14 Meningococcal Vaccine Aged Out 09/08/2016, 009 No longer eligible based on patient's age to complete this topic Men B Vaccine Aged Out No longer elig ible based on patient's age to complete this topic Pneumococcal Vaccine Aged Out No long er eligible based on patient's age to complete this topic Insurance [facility] NON PCC Care Teams Retrofit Installer Relationship Specialty Start Date End Date Lexa Wheeler MD PCP - General 04/28/17
--- OUTSIDE RECORDS SUMMARY | 2025-01-22 09:17 | XMS_ITS | Encounter Summary ---
Author Organization [facility] Address [address] [place], [place] [address] Phone Care Team Providers Care Barrel Bridge Assembler Name Role Phone Lexa Wheeler MD Primary Care Provider Unavailabl e Encounter Details Date Type Department Care Team (Late st Contact Info) Description 12/15/[address] [facility] [place] [address] [place] [address] Family Medicine, Physician [address], [place] [address] Social History Tobacco Use Types Packs/Day Years [...] on filedocumented in this encounter Care Teams Barrel Bridge Assembler Relationship Specialty Start Date End Date Lexa Wheeler MD PCP - General 04/28/17 documented as of this encounter
== END 2025-01-22 09:16 | disposition home or self-care (01) ==
LOC: HO.HOS 08:51
PROVIDERS: PCP Nurse Practitioner Family; Visit Provider Physician Assistant
DX: S43.004A Unspecified dislocation of right shoulder joint, initial encounter (principal)
CPT/HCPCS: 99213; G2211

== ENCOUNTER → 2025-01-22 08:51 | Outpatient (BNVA) | payer OTHER, SELFPAY | PROVIDERS: PCP Nurse Practitioner Family; Visit Provider Physician Assistant | DX: S43.004A Unspecified dislocation of right shoulder joint, initial encounter (principal) | CPT/HCPCS: 99212 ==

== ENCOUNTER 2025-02-04 11:44 | Outpatient (REF) | payer OTHER, SELFPAY ==
--- NOTE | ~2025-02-04 | MR_ITS ---
EXAMINATION: MR ARTHROGRAM SHOULDER, RIGHT CLINICAL INFORMATION: Unspecified dislocation of right shoulder, initial encounter. Dislocation 08/04/2024, with re-dislocation 12/28/2024. Right shoulder pain and instability. COMPARISON: Right shoulder radiographs 12/28/2024, 08/04/2024. TECHNIQUE: Multiplanar multisequence MR imaging of the right shoulder was performed after the intra-articular instillation of dilute gadolinium contrast. Examination performed on a 1.5 Katie Siemens unit utilizing standard sequences. FINDINGS: Rotator Cuff and Biceps Tendon: Supraspinatus: Contrast appears to undermine approximately 30% of the undersurface of the tendon within the critical zone, consistent with articular surface partial tear. Normal muscle belly. Infraspinatus: No definite tear identified. Normal muscle belly. Subscapularis: There is an articular surface myotendinous injury measuring approximately 10 mm in length, by 9 mm in craniocaudal dimension (series 11, image 13; series 10, image 13). Tendon is otherwise intact. Normal muscle belly. Teres Minor: Intact and normal in signal. Normal muscle belly. Biceps Long Head: Normally located within the bicipital groove. Normal morphology. The tendon in the rotator interval appears intact. The anchor appears intact but appears undermined by superior labral tear. AC Joint and Acromiohumeral Arch: There is a type III acromion. There is no subacromial spur. The AC joint has a normal appearance without significant spurring. No narrowing of the subacromial space. Glenohumeral Joint and Labrum: There is T1 hyperintense fluid within the intra-articular compartment. No cartilaginous abnormality or defect is evident. No subchondral bone plate edema is present. There is diffuse tearing of the posterior, superior, and anterior labrum. There is a periosteal sleeve avulsion of the anterior labrum. (Series 11, image 14). Osseous Structures: There is a Hill-Sachs impaction fracture in the posterior lateral humeral head. This appears chronic. There is no definite bony Bankart. There is no bone marrow edema or abnormal infiltrating bone marrow signal. Spino-glenoid Notch: Normal. Quadrilateral Space: Normal. Other: There is a small amount of fluid in the subacromial/subdeltoid bursa consistent with bursitis. MR/MR shoulder RT w con IMPRESSION: 1. Chronic Hill-Sachs impaction fracture. 2. Suspect a 30% undersurface tear of the supraspinatus tendon within the critical zone. 3. There is a articular surface myotendinous partial tear of the subscapularis tendon. 4. There is tearing of the superior, anterior, and posterior labrum. Superior labral tearing undermines the bicipital anchor. Periosteal sleeve avulsion of the anterior labrum. 5. Normal AC joint. Preserved subacromial space without supraspinatus outlet stenosis. Electronically signed by: Ranjith Martinez MD 02/04/2025 02:15 PM EDT
--- NOTE | ~2025-02-04 | FL_ITS ---
EXAMINATION: XR ARTHROGRAM SHOULDER, RIGHT CLINICAL INFORMATION: M19.011 - Primary osteoarthritis, right shoulder ; dislocation 08/04/2024, with re-dislocation 12/28/2024. Right shoulder pain and instability. COMPARISON: Right shoulder radiographs 12/28/2024, and 08/04/2024. TECHNIQUE: Following full and informed consent, the patient was placed in the supine position on the fluoroscopy table. Following this, the right shoulder joint was localized utilizing fluoroscopic guidance. The area was prepped and draped in a sterile manner and 1% Lidocaine anesthesia was utilized for skin and subcutaneous tissue anesthesia, for an anterior approach to the shoulder joint. Following this, a 22-gauge needle was advanced into the shoulder joint space utilizing fluoroscopic guidance. Following this, approximately 8 mL of a mixture (0.1 mL Gadavist diluted with 5 mL Omnipaque 300, and 2 mL 1% lidocaine) was injected into the joint space under direct fluoroscopic visualization. The needle was then removed. The patient tolerated the procedure well and there were no immediate complications. Solitary spot image demonstrates a Hill-Sachs impaction fracture. There is no evidence of full-thickness rotator cuff tear on arthrogram. The patient will undergo subsequent MRI. FLUOROSCOPY TIME: 11 seconds. DAP: 95.2 uGym2 Total number of fluoroscopic images archived and saved in the patients permanent medical record: 2 FL/FL arthrogram shoulder RT IMPRESSION: 1. Successful right shoulder intra-articular injection of dilute gadolinium. The patient will undergo subsequent MRI. 2. Hill-Sachs impaction fracture, likely chronic. Electronically signed by: Ranjith Martinez MD 02/04/2025 12:51 PM EDT
[2025-02-04] MEDS: iohexoL 300 MG/ML 50 ML INFUS..BTL INTRAARTIC (12:37)
[2025-02-04] MEDS: Lidocaine HCl 1 % MPF 30 ML VIAL INTRAARTIC (12:38)
--- OUTSIDE RECORDS SUMMARY | 2025-02-04 12:59 | XMS_ITS ---
Author Organization [facility] Address [address] [place] [phone] Care Team Providers Care Stock Or Delivery Clerk Name Role Phone Korin Butts Primary Care Provider Joey Mike Jr, Shreyas Welch REASON FOR VISIT refill dicyclomine Medications Medication SIG (Take, Route, Fr equency, Duration) Notes Start Date End Date Status Dicyclomine HCl 20 MG 1 Orally 2-4 times a day for 30 days 10/27/2023 Active Encounters Encounter Location Date Provider Diagnosis [facility] [address] [place] [phone] 07/02/2024 Shreyas Mike Jr Plan Of Treatment Medication Medication Name Sig Start Date Stop Date Notes Dicyclomine HCl 20 MG 1 Orally 2-4 times a day for 30 days 10/27/2023 Progress Notes * RAMA MANZANARES ADOB:1995 (28 yo M)Acc No.[id number]:07/02/2024 Patient:?RAMA MANZANARES :1995???Age:28 Y???Sex:Male Address:[address] [place] [address], [address] * Refills? Refill Dicyclomine HCl Tablet, 20 MG, Orally, 120, 1, 2-4 times a day, 30 days, Refills=6 * true * Date:? Generated for Yann whitt/Sarahi/eTransmitting on:?02/04/2025 12:59 PM EDT
--- OUTSIDE RECORDS SUMMARY | 2025-02-04 12:59 | XMS_ITS ---
Author Organization [facility] Address [address] [place] [phone] Care Team Providers Care Wood Floor Refinisher Name Role Phone Korin Butts Primary Care Provider Joey Mike Jr, Shreyas Welch [phone] REASON FOR VISIT refill dicyclomine Medications Medication SIG (Take, Route, Fr equency, Duration) Notes Start Date End Date Status Dicyclomine HCl 20 MG 1 Orally 2-4 times a day for 30 days 10/27/2023 Active Encounters Encounter Location Date Provider Diagnosis [facility] [address] [place] [phone] 02/15/2024 Shreyas Mike Jr Plan Of Treatment Medication Medication Name Sig Start Date Stop Date Notes Dicyclomine HCl 20 MG 1 Orally 2-4 times a day for 30 days 10/27/2023 Progress Notes * RAMA MANZANARES ADOB:1995 (28 yo M)Acc No.[id number]:02/15/2024 Patient:?RAMA MANZANARES :1995???Age:28 Y???Sex:Male Address:[address] [place] [address], [address] * Refills? Refill Dicyclomine HCl Tablet, 20 MG, Orally, 120, 1, 2-4 times a day, 30 days, Refills=6 * true * Date:? Generated for Yann whitt/Sarahi/eTransmitting on:?02/04/2025 12:59 PM EDT
--- OUTSIDE RECORDS SUMMARY | 2025-02-04 12:59 | XMS_ITS | Patient Health Record ---
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 Problem 28673340 Nausea and vomiting, unspecified vomiting type (R11.2) Active confirmed Encounters Encounter Location Date Provider Diagnosis [facility] [address] [place] [phone] 02/15/2024 Shreyas Mike Jr [facility] [address] [place] [phone] 07/02/2024 Shreyas Mike Jr [facility] [address] [place] [phone] 10/08/2024 Shreyas Mike Jr Plan Of Treatment Future Test Test Name Order Date UPPER GI ENDOSCOPY 11/15/2023 COLONOSCOPY 11/15/2023 Insurance Providers Payer Name Payer Address Payer Phone Subscriber Number Group Number Insured Name Patient Relationship to Insured Coverage Start Date Coverage End Date [facility] [address] [address] [place], [place] [id number] GLENNA RAMA Self - patient is the insured Medical (General) History Medical History History ICD Code Indeterminate colitis, diagn osed at age 18 2013, previous treatment mesalamine, steroids, and Humira, patient stopped Humira on his own. Colonoscopy,2021 [place], normal per patient report. Surgical History Surgery Date(Month/Year) Hospitalization History Reason Date(Month/Year) 2 hospitalizations, 10/11 epi ploic appendagitis/proctalgia fugax , 11/11 viral influenza with sepsis 2023
--- OUTSIDE RECORDS SUMMARY | 2025-02-04 13:00 | XMS_ITS ---
Author Organization [facility] Address [address] [place] [phone] Care Team Providers Care Chemical Project Engineer Name Role Phone Korin Butts Primary Care Provider Shreyas Sawyer Jr REASON FOR VISIT refill Medications Medication SIG (Take, Route, Fr equency, Duration) Notes Start Date End Date Status Dicyclomine HCl 20 MG 1 Orally 2-4 times a day for 30 days 10/27/2023 Active Encounters Encounter Location Date Provider Diagnosis [facility] [address] [place] [phone] 10/08/2024 Shreyas Mike Jr Plan Of Treatment Medication Medication Name Sig Start Date Stop Date Notes Dicyclomine HCl 20 MG 1 Orally 2-4 times a day for 30 days 10/27/2023 Progress Notes * RAMA MANZANARES ADOB:1995 (28 yo M)Acc No.[id number]:10/08/2024 Patient:?RAMA MANZANARES :1995???Age:28 Y???Sex:Male Address:[address] [place] [address], [address] * Refills? Refill Dicyclomine HCl Tablet, 20 MG, Orally, 120, 1, 2-4 times a day, 30 days, Refills=6 * true * Date:? Generated for Yann whitt/Sarahi/eTransmitting on:?02/04/2025 12:59 PM EDT
== END 2025-02-04 11:45 | disposition home or self-care (01) ==
LOC: HO.XRAY 11:44
PROVIDERS: PCP Nurse Practitioner Family; Visit Provider Physician Assistant
DX: S42.291D Other displaced fracture of upper end of right humerus, subsequent encounter for fracture with routine healing (principal); S43.004D Unspecified dislocation of right shoulder joint, subsequent encounter
CPT/HCPCS: 23350; 73040; 73222; J2003; Q9967

== ENCOUNTER → 2025-02-04 11:53 | Outpatient (BNV) | payer OTHER, SELFPAY | PROVIDERS: PCP Nurse Practitioner Family; Visit Provider Radiology Diagnostic Radiology | DX: M24.411 Recurrent dislocation, right shoulder (principal); S43.431A Superior glenoid labrum lesion of right shoulder, initial encounter; M19.011 Primary osteoarthritis, right shoulder; S42.291A Other displaced fracture of upper end of right humerus, initial encounter for closed fracture | CPT/HCPCS: 23350; 73040; 73222 ==

== ENCOUNTER 2025-03-18 14:33 | Outpatient (AMB) | payer OTHER, SELFPAY ==
--- NOTE | 2025-03-18 14:49 | MHC.OFFVIS ---
Intake Visit Reasons: OV-RT Shoulder MRI review Intake Note: Diogo is a 29 year old right hand dominant male who presents today for an MRI review of right shoulder. Patient reports that he is doing well, states having mild pain that is usually in the mornings. Allergies merida (cherries) Adverse Reaction (Verified 03/27/25 12:12) Gastrointestinal Upset HPI HPI OV-RT Shoulder MRI review: Details: 29-year-old gentleman returns to the office today for a follow-up right shoulder MRI. Patient continues to have discomfort in the right shoulder and sensations of instability. He is working light duty at work and needs to be cautious with overhead or reaching activities as the shoulder feels like it wants to dislocate. [facility] Medical History Elevated systolic blood pressure reading without diagnosis of hypertension Irritable bowel syndrome with both constipation and diarrhea Cannabis use disorder Cyclic vomiting syndrome Surgical History H/O colonoscopy No pertinent past surgical history Social History Household Members: Family Housing: House Do you presently have visiting nurse or other home services: No Patient Tobacco Use Status: Former Tobacco user Tobacco use type: Cigarette Cigarette Packs Per Day: 1 Cigarettes Per Day: 20 Years Smoked: 7 e-Cigarette/Vaping Use: Never Used Substance Use Type: Marijuana service: No Current occupational status: employed 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 Patient has a positive apprehension test. Results Reviewed Results Reviewed: MR shoulder RT w con 02/04/25 IMPRESSION: 1. Chronic Hill-Sachs impaction fracture. 2. Suspect a 30% undersurface tear of the supraspinatus tendon within the critical zone. 3. There is a articular surface myotendinous partial tear of the subscapularis tendon. 4. There is tearing of the superior, anterior, and posterior labrum. Superior labral tearing undermines the bicipital anchor. Periosteal sleeve avulsion of the anterior labrum. 5. Normal AC joint. Preserved subacromial space without supraspinatus outlet stenosis. Assessment & Plan Assessment & Plan (1) Dislocation of right shoulder joint: Code(s): S43.004A - Unspecified dislocation of right shoulder joint, initial encounter Category: Medical Plan: I explained the procedure in detail along with the length of recovery and rehab course. I explained the risk, benefits and alternatives. Risk including, but not limited to infection, blood clots, bleeding, ongoing pain and stiffness. I explained the use of the sling post opL ie: 6 weeks. Discussed the importance of PT post op and performing pendulum exercises immediately after surgery. I answered all their questions and with their understanding they have consented to move forward with right shoulder bankart repair with Dr Scott. Coding Level of Care Code Est Pt Level 4 (59481) Complex EM visit Add On G2211 Diagnoses Dislocation of right shoulder joint S43.004A
--- OUTSIDE RECORDS SUMMARY | 2025-03-18 15:39 | XMS_ITS | Clinical Summary ---
Author Organization [facility] Address [address] [place] [address] Phone Care Team Providers Care Rn Interventional Name Role Phone Lexa Wheeler MD Primary [...] 87 06/21/2018 10:04 AM EDT Temperature 36.7 C (98.1 F) 06/21/2018 10:04 AM EDT Respiratory Rate - - Oxygen Saturation 100% [...] 07/11/2017, 09/08/2016, Additional history exists COVID-19 Vaccine (2023-25 season) 2024 DTaP,Tdap,and Td Vaccines (8 - [...] patient's age to complete this topic Insurance [facility] NON PCC Care Teams Rn Interventional Relationship Specialty Start Date End Date Lexa Wheeler MD PCP - General 04/28/17
--- OUTSIDE RECORDS SUMMARY | 2025-03-18 15:39 | XMS_ITS | Patient Health Record ---
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 Problem 90379724 Nausea and vomiting, unspecified vomiting type (R11.2) Active confirmed Encounters Encounter Location Date Provider Diagnosis [facility] [address] [place] [phone] 07/02/2024 Shreyas Mike Jr [facility] [address] [place] [address] 10/08/2024 Shreyas Mike Jr Plan Of Treatment Future Test Test Name Order Date UPPER GI ENDOSCOPY 11/15/2023 COLONOSCOPY 11/15/2023 Insurance Providers Payer Name Payer Address Payer Phone Subscriber Number Group Number Insured Name Patient Relationship to Insured Coverage Start Date Coverage End Date [facility] [address] [address] [place], [place] [id number] MANZANARESALIYAH MOYAEN Self - patient is the insured Medical (General) History Medical History History ICD Code Indeterminate colitis, diagn osed at age 18 2013, previous treatment mesalamine, steroids, and Humira, patient stopped Humira on his own. Colonoscopy,2021[place], normal per patient report. Surgical History Surgery Date(Month/Year) Hospitalization History Reason Date(Month/Year) 2 hospitalizations, 10/11 epi ploic appendagitis/proctalgia fugax , 11/11 viral influenza with sepsis 2023
== END 2025-03-18 16:00 | disposition home or self-care (01) ==
LOC: HO.HOS 14:34
PROVIDERS: PCP Nurse Practitioner Family; Visit Provider Physician Assistant
DX: S43.004A Unspecified dislocation of right shoulder joint, initial encounter (principal)
CPT/HCPCS: 99214; G2211

== ENCOUNTER → 2025-03-18 14:33 | Outpatient (BNVA) | payer OTHER, SELFPAY | PROVIDERS: PCP Nurse Practitioner Family; Visit Provider Physician Assistant | DX: Z71.2 Person consulting for explanation of examination or test findings (principal); S43.004A Unspecified dislocation of right shoulder joint, initial encounter | CPT/HCPCS: 99212 ==

== ENCOUNTER 2025-03-27 11:03 | Outpatient (AMB) | payer OTHER, SELFPAY ==
--- NOTE | 2025-03-27 11:32 | A.OFFPC_ITS ---
Vital Signs 03/27/25 11:33 Height 5 ft 8 in Weight 223 lb 4 oz BMI 33.9 BP 116/88 Blood Pressure Location Rt brachial Position Sitting Respiration 14 Pulse 67 Pulse Source Pulse Oximeter Temp 98.6 F Temp Source Oral Pulse Oximetry (%) 99 Oxygen Delivery Method Room Air Intake Visit Reasons: Facial hair issue Intake Note: Physical. Bald spot in vernon. Simulation Tech Required: No Allergies merida (cherries) Adverse Reaction (Verified 03/27/25 12:12) Gastrointestinal Upset Medication List - Last Reconciled 03/27/25 by Korin Butts, MAINTENANCE MACHINE REPAIRER-BC acetaminophen (Acetaminophen Extra Strength) 1,000 mg PO Q6H PRN dicyclomine 20 mg (2 x 10 mg) PO QIDACHS PRN docusate sodium 100 mg PO DAILY PRN Tobacco use date assessed: 03/27/25 Dental Screening Dental Screen Date: 03/27/25 Did you have a dental visit in the last 12 months?: Yes Did you have a dental problem in the last 6 months where you did not have access to dental care?: No Was dental information given to patient?: Patient has dentist HPI HPI Comments History of Present Illness Details 29 y/o M w/ obesity, IBS, H pylori ulcer , proctalgia fagaut 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 Specialists [facility] Health maintenance Tdap 2017 Optho wears glasses, last appt a few months ago Here today for CPE R shoulder dislocation May need surgery GI symptoms improved status post treatment for H pylori. P.r.n. follow up with GI. Requesting STD screen. Denies symptoms. Patient wears glasses. Up-to-date on eye exam. c/o Sudden hair loss on the left vernon area, beginning two months ago, area smooth without pruritus. - Reports history of Irritable Bowel Syn drome, managed with dicyclomine, improved. 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 - Reports current use of marijuana. Review of Systems - Integumentary: Reports patch of hair l oss on vernon area; Denies pruritus. - Gastrointestinal: Denies abnormal stom ach symptoms. - Musculoskeletal: Reports past dislocat ion of shoulder. Physical Exam General: Well developed, well nourished, in no acute distress. Appears stated age. Head: Normocephalic, atraumatic. Noted area of hair loss on the vernon, with some hair regrowth observed, L chin Eyes: Pupils are equal, round and reactive to light and accommodation. Conjunctivae are clear. Vision grossly normal. Ears: TMs clear AU, EACS WNL Nose: Patent, without discharge. Neck: Supple, no adenopathy or thyromegaly. Breast: Edu on SBE Lungs: Clear to auscultation bilaterally. No rales, rhonchi or wheeze noted. Good air flow in all [place]. Heart: Regular rate and rhythm. No murmurs, click, rubs or gallops are noted. Abdomen: Bowel sounds present in all quadrants. The abdomen is soft, nontender, with no masses or organomegaly noted. No hernias are noted. : Deferred. Reviewed BEN & recommendations Pulses: Peripheral pulses are equal and palpable bilaterally. Extremities: No clubbing, cyanosis nor edema is noted. No open sores or rashes on feet. Neurologic: Gait and station normal. Cranial Nerves 2-12 intact. Motor strength grossly symmetrical and intact. No sensory loss. Balance normal. Skin: No rashes, ulcers, or lesions noted. Turgor is good. Skin color is good. Hair and nails are without abnormalities, except for noted area of hair loss on the vernon. Psych: Normal eye contact, affect and mood appropriate, and normal interactions. Patient is alert and appropriate to context. Discussion Notes During this visit, I discussed the possible diagnosis of Tinea Barbae due to the patient's sudden facial hair loss. I explained the benefits and risks of treating the condition with a topical antifungal and a steroid cream, emphasizing the importance of monitoring hair regrowth and improvement in symptoms. If there is no improvement, I advised consideration of dermatological referral, could consider PO medications, too. Provisional plan includes continuing orthopedic follow-up for shoulder dislocation. Continued use of dicyclomine for Irritable Bowel Syndrome was reassured given the stability of symptoms. I discussed consenting to the topical treatment, along with reiterating the usage and expected outcomes. I provided the patient with relevant prescriptions and guided him to follow up should any other issues arise. Assessment and Plan 1. Tinea Barbae (suspected) - Topical antifungal and steroid prescri bed. 2. Irritable Bowel Syndrome - Continue dicyclomine. 3. Shoulder Dislocation, R - Follow up with orthopedics. 4. Obesity - Continue management. Patient Instructions - Apply given topical creams to the affe cted vernon area for a couple of weeks as directed. - Continue taking dicyclomine as prescri bed. - Follow up with your orthopedic special ist as scheduled. - Monitor vernon area for hair regrowth, notify doctor if no improvement. - Visit your pharmacy to waste picker the pre scribed creams. - RTO 1 year CPE sooner PRN Consent Patient was informed and verbally consented to the use of an ambient scribe for clinic note documentation during this visit. An additional 20 minutes was spent addressing the problem(s) noted at todays visit. This includes time spent before the visit reviewing the chart, time spent during the visit, and time spent after the visit on documentation reviewing laboratory results, diagnostic imaging, medications, performing a medically necessary evaluation, counseling on diagnoses, care coordination, ordering appropriate tests, ordering appropriate medications, review of tests performed by other providers, reporting test results with the patient, communication with other healthcare providers. [facility] Medical History Elevated systolic blood pressure reading without diagnosis of hypertension Irritable bowel syndrome with both constipation and diarrhea Cannabis use disorder Cyclic vomiting syndrome Surgical History H/O colonoscopy No pertinent past surgical history Social History Household Members: Family Housing: House Do you presently have visiting nurse or other home services: No Patient Tobacco Use Status: Former Tobacco user Tobacco use type: Cigarette Cigarette Packs Per Day: 1 Cigarettes Per Day: 20 Years Smoked: 7 e-Cigarette/Vaping Use: Never Used Substance Use Type: Marijuana service: No Current occupational status: employed 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 1. Little interest or pleasure in doing things: not at all 2. Feeling down, depressed, or hopeless: not at all 3. Trouble falling or staying asleep, or sleeping too much: not at all 4. Feeling tired or having little energy: not at all 5. Poor appetite or overeating: not at all 6. Feeling bad about yourself - or that you are a failure or have let yourself or your family down: not at all 7. Trouble concentrating on things, such as reading the newspaper or watching television: not at all 8. Moving or speaking so slowly that other people could have noticed. Or the opposite - being so fidgety or restless that you have been moving around a lot more than usual: not at all 9. Thoughts that you would be better off or of hurting yourself in some way: not at all Total score: 0 Depression Screening Interpretation: Negative Depression Screening Done: Yes 56497 - PHQ-9 Billing: Yes Source: Developed by Drs. Amando Mcduffie, Aspen Kelly, Brandon Daniels and colleagues, with an educational mateus from [employer]. Thrive Questionnaire Date Thrive assessed: 03/24/25 I am a: Patient What is your living situation today?: I have a steady place to live Within the past 12 months, did the food you bought not last and you didn't have the money to get more?: I choose not to answer this question Within the past 12 months, did you worry whether your food would run out before you got money to buy more?: I choose not to answer this question Do you have trouble paying for medicines?: No Do you have trouble getting transportation to medical appointments?: No Do you have trouble paying your heating and electricity bill?: I choose not to answer this question Do you have trouble taking care of your child, family member or friend?: I choose not to answer this question Do you have trouble with day-to-day activities such as bathing, preparing meals, shopping, managing finances, etc.?: No Are you currently unemployed and looking for a job?: Yes Are you interested in more education?: No Please select the resources that you would like help with: None Currently or been in a relationship where the following occur: I choose not to answer THRIVE Score: 0 AUDIT C Alcohol Use Questionnaire (AUDIT-C) 1. How often do you have a drink containing alcohol?: Monthly or less 2. How many drinks containing alcohol do you have on a typical day when you are drinking?: 1 or 2 3. How often do you have six or more drinks on one occasion?: Less than monthly Total Score: 2 Score Reviewed/Action Taken: Yes HINA-7 AMB Questionnaire HINA-7 Date HINA - 7 assessed: 03/27/25 Feeling nervous, anxious, or on edge: 0 = Not at all Not being able to stop or control worryin = Not at all Worrying too much about different things: 0 = Not at all Trouble relaxin = Not at all Being so restless that it is hard to sit still: 0 = Not at all Becoming easily annoyed or irritable: 0 = Not at all Feeling afraid as if something awful might happen: 0 = Not at all Total HINA-7 score (0-4 normal; 5-9 mild; 10-14 moderate; 15-21 severe): 0 Source: Developed by Drs. Amando Mcduffie, Aspen Kelly, Brandon Daniels and colleagues, with an educational mateus from [employer]. HINA-7 Assessment Billing HINA-7 Assessment Tool: HINA-7 Assessment 73261 Physical exam (Primary Care) Vital Signs: Last Vital Signs Temp 98.6 F 03/27/25 11:33 Pulse 67 03/27/25 11:33 Resp 14 03/27/25 11:33 BP 116/88 03/27/25 11:33 Pulse Ox 99 03/27/25 11:33 Oxygen Delivery Method Room Air 03/27/25 11:33 BMI result Body Mass Index 33.9 BMI Assessment/Plan discussion: High BMI High, discussed plan: lifestyle Tobacco/Smoking Status: Tobacco use Status Tobacco use date assessed 03/27/25 03/27/25 11:34 Patient Tobacco Use Status Former Tobacco user 03/27/25 11:34 Tobacco use type Cigarette 03/27/25 11:34 e-Cigarette/Vaping Use Never Used 03/27/25 11:34 PHQ-9: PHQ-9 Score PHQ-9: Total score 0 03/27/25 11:34 Depression Screening Interpretation: Negative Thrive Assessment: Date of Thrive Assessment Date Thrive assessed 03/24/25 03/27/25 11:34 Currently or been in a relationship where the following occur: I choose not to answer Coding Level of Care Code Est Pt Level 3 (60621) Est Pt Prev Care 18-39y(78912) Diagnoses Encounter for general adult medical examination without abnormal findings Z00.00 Cannabis use disorder F12.90 Proctalgia fugax K59.4 Irritable bowel syndrome with both constipation and diarrhea K58.2 Hiatal hernia K44.9 Obesity (BMI 30-39.9) E66.9 Tinea barbae B35.0 Additional Codes HINA-7 Assessment Billing - HINA-7 Assessment Tool: HINA-7 Assessment 89941 ([id number]) PHQ-9 - 51512 - PHQ-9 Billing: Yes ([id number]) Assessment & Plan Assessment & Plan (1) Encounter for general adult medical examination without abnormal findings: Onset Date: ~03/27/25 Code(s): Z00.00 - Encounter for general adult medical examination without abnormal findings Category: Medical (2) Cannabis use disorder: Code(s): F12.90 - Cannabis use, unspecified, uncomplicated Category: Medical (3) Proctalgia fugax: Code(s): K59.4 - Anal spasm Category: Medical (4) Irritable bowel syndrome with both constipation and diarrhea: Code(s): K58.2 - Mixed irritable bowel syndrome Category: Medical (5) Hiatal hernia: Comment: EGD 11/2023 Code(s): K44.9 - Diaphragmatic hernia without obstruction or gangrene Category: Medical (6) Obesity (BMI 30-39.9): Code(s): E66.9 - Obesity, unspecified Category: Medical (7) Tinea barbae: Code(s): B35.0 - Tinea barbae and tinea capitis Category: Medical Plan . Medications: New terbinafine HCl 1% (Antifungal (terbinafine)) 1 appl topical BID 30 grams 3RF betamethasone dipropionate 0.05% 1 appl topical DAILY PRN 45 grams 2RF skin irritation Patient Instructions: Health screenings for men You should visit your health care provider regularly, even if you feel healthy. The purpose of these visits is to: Screen for medical issues Assess your risk for future medical problems Encourage a healthy lifestyle Update vaccinations and other preventive care services Help you get to know your provider in case of an illness Information Even if you feel fine, you should still see your provider for regular checkups. These visits can help you avoid problems in the future. For example, the only way to find out if you have high blood pressure is to have it checked regularly. High blood sugar and high cholesterol level also may not have any symptoms in the early stages. Simple blood tests can check for these conditions. There are specific times when you should see your provider or receive specific health screenings. The [place] Preventive Services Task Force publishes a list of recommended screenings. Below are screening guidelines for men ages 40 to 64. BLOOD PRESSURE SCREENING Have your blood pressure checked at least once every year. Watch for blood pressure screenings in your area. Ask your provider if you can stop in to have your blood pressure checked. Ask your provider if you need your blood pressure checked more often if: You have diabetes, heart disease, kidney problems, or are overweight or have certain other health conditions You have a first-degree relative with high blood pressure You are Black Your blood pressure top number is from 120 to 129 mm Hg, or the bottom number is from 70 to 79 mm Hg If the top number is 130 mm Hg or greater or the bottom number is 80 mm Hg or greater, this is considered stage 1 hypertension. Schedule an appointment with your provider to learn how you can lower your blood pressure. Effects of age on blood pressure CHOLESTEROL SCREENING Cholesterol screening should begin at age 35 for men with no known risk factors for coronary heart disease. Repeat cholesterol screening should take place: Every 5 years for men with normal cholesterol levels More often if changes occur in lifestyle (including weight gain and diet) More often if you have diabetes, heart disease, kidney problems, or certain other conditions COLORECTAL CANCER SCREENING If you are under age 45, talk to your provider about getting screened. You may need to be screened if you have a strong family history of colon cancer or polyps. Screening may also be considered if you have risk factors such as a history of inflammatory bowel disease or polyps. If you are age 45 to 75, you should be screened for colorectal cancer. There are several screening tests available: A stool-based fecal occult blood (gFOBT) or fecal immunochemical test (FIT) every year A stool sDNA test every 1 to 3 years Flexible sigmoidoscopy every 5 years or every 10 years with stool testing FIT done every year CT colonography (virtual colonoscopy) every 5 years Colonoscopy every 10 years You may need a colonoscopy more often if you have risk factors for colorectal cancer, such as: Ulcerative colitis A personal or family history of colorectal cancer A history of growths in your colon called adenomatous polyps DENTAL EXAM Go to the dentist once or twice every year for an exam and cleaning. Your dentist will evaluate if you have a need for more frequent visits. DIABETES SCREENING All adults who do not have risk factors for diabetes should be screened starting at age 35 and repeated every 3 years. If you have other risk factors for diabetes, such as a first degree relative with diabetes, overweight or obesity, high blood pressure, prediabetes, or a h istory of heart disease, you may be tested more often. If you are overweight and have other risk factors, such as high blood pressure and are planning to become , screening is recommended. EYE EXAM Have an eye exam every 2 to 4 years ages 40 to 54 and every 1 to 3 years ages 55 to 64. Your provider may recommend more frequent eye exams if you have vision problems or glaucoma risk. Have an eye exam that includes an examination of your retina (back of your eye) at least every year if you have diabetes. IMMUNIZATIONS Commonly needed vaccines include: Flu shot: get one every year COVID-19 vaccine: ask your provider what is best for you Tetanus-diphtheria and acellular pertussis (Tdap) vaccine: have as one of your tetanus-diphtheria vaccines if you did not receive it as an adolescent Tetanus-diphtheria: have a booster (or Tdap) every 10 years Varicella vaccine: receive 2 doses if you never had chickenpox or the varicella vaccine and were born in 1979 or after Hepatitis B vaccine: receive 2, 3, or 4 doses, depending on your exact circumstances, if you did not receive these as a child or adolescent, until age 59 Shingles (herpes zoster) vaccine: at or after age 50 Ask your provider if you should receive other immunizations, especially if you have certain medical conditions, such as diabetes or are at increased risk for some diseases such as pneumonia. INFECTIOUS DISEASE SCREENING Screening for hepatitis C: all adults ages 18 to 79 should get a one-time test for hepatitis C. Screening for human immunodeficiency virus (HIV): all people ages 15 to 65 should get a one-time test for HIV. Depending on your lifestyle and medical history, you may need to be screened for infections such as syphilis, chlamydia, and other infections. LUNG CANCER SCREENING You should have an annual screening for lung cancer with low-dose computed tomography (LDCT) if: You are age 50 to 80 years AND You have a 20 pack-year smoking history AND You currently smoke or have quit within the past 15 years OSTEOPOROSIS SCREENING If you are age 50 to 64 and have risk factors for osteoporosis, you should discuss screening with your provider. Risk factors can include long-term steroid use, low body weight, smoking, heavy alcohol use, having a fracture after age 50, or a family history of hip fracture or osteoporosis. Osteoporosis PHYSICAL EXAM All adults should visit their provider from time to time, even if they are healthy. The purpose of these visits is to: Screen for diseases Assess risk of future medical problems Encourage a healthy lifestyle Update vaccinations and other preventive care services Maintain a relationship with a provider in case of an illness Your height, weight, and body mass index (BMI) should be checked at every exam. During your exam, your provider may ask you about: Depression and anxiety Diet and exercise Alcohol and tobacco use Safety, such as use of seat belts and smoke detectors Your medicines and risk for interactions PROSTATE CANCER SCREENING If you're 55 through 69 years old, before having the test, talk to your provider about the pros and cons of having a PSA test. Ask about: Whether screening decreases your chance of dying from prostate cancer. Whether there is any harm from prostate cancer screening, such as side effects from testing or overtreatment of cancer when discovered. Whether you have a higher risk of prostate cancer than others. If you are age 55 or younger, screening is not generally recommended. You should talk with your provider about if you have a higher risk for prostate cancer. Risk factors include: Having a family history of prostate cancer (especially a brother or father) Being If you choose to be tested, the PSA blood test is repeated over time (yearly or less often), though the best frequency is not known. Prostate examinations are no longer routinely done on men with no symptoms. Prostate cancer SKIN EXAM Your provider may check your skin for signs of skin cancer, especially if you're at high risk. People at high risk include those who have had skin cancer before, have close relatives with skin cancer, or have a weakened immune system. TESTICULAR EXAM The [place] Preventive Services Task Force (USPSTF) now recommends against performing testicular self-exams. Doing testicular self-exams has been shown to have little to no benefit.
[2025-03-27 11:33] VITALS: BP 116/88; PULSE 67; RESP 14; TEMP 37; O2SAT 99; BMI 33.9
--- OUTSIDE RECORDS SUMMARY | 2025-03-27 11:46 | XMS_ITS | Clinical Summary ---
Author Organization [facility] Address [address] [place] [id number] Phone Care Team Providers Care Digital Color Press Operator Name Role Phone Lexa Wheeler MD [...] Health Maintenance Due Date Last Done Comments COVID-19 Vaccine ( season) 2024 Influenza Vaccines (#1) 2025 06/21/20 18, 07/11/2017, 09/08/2016, Additional history exists DTaP,Tdap,and Td Vaccines (8 - Td or [...] patient's age to complete this topic Insurance [facility] NON PCC Care Teams Digital Color Press Operator Relationship Specialty Start Date End Date Lexa Wheeler MD PCP - General 04/28/17
--- OUTSIDE RECORDS SUMMARY | 2025-03-27 11:47 | XMS_ITS | Patient Health Record ---
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 Problem [id number] Nausea and vomiting, unspecified vomiting type (R11.2) Active confirmed Encounters Encounter Location Date Provider Diagnosis [facility] [address] [place] [phone] 07/02/2024 Shreyas Mike Jr [facility] [address] [place] [address] 10/08/2024 Shreyas Mike Jr Plan Of Treatment Future Test Test Name Order Date UPPER GI ENDOSCOPY 11/15/2023 COLONOSCOPY 11/15/2023 Insurance Providers Payer Name Payer Address Payer Phone Subscriber Number Group Number Insured Name Patient Relationship to Insured Coverage Start Date Coverage End Date [facility] [employer] [facility] [address] [address] [place], [place] [id number] MANZANARESALIYAH MOYAEN Self - patient is the [...]
== END 2025-03-27 12:26 | disposition home or self-care (01) ==
LOC: HO.HMCFM 11:04
PROVIDERS: PCP Nurse Practitioner Family; Visit Provider Nurse Practitioner Family
DX: Z00.00 Encounter for general adult medical examination without abnormal findings (principal); K58.2 Mixed irritable bowel syndrome; E66.9 Obesity, unspecified; Z68.33 Body mass index [BMI] 33.0-33.9, adult; K59.4 Anal spasm; F12.90 Cannabis use, unspecified, uncomplicated; K44.9 Diaphragmatic hernia without obstruction or gangrene; B35.0 Tinea barbae and tinea capitis

== ENCOUNTER → 2025-03-27 11:03 | Outpatient (BNVA) | payer OTHER, SELFPAY | PROVIDERS: PCP Nurse Practitioner Family; Visit Provider Nurse Practitioner Family | DX: Z00.00 Encounter for general adult medical examination without abnormal findings (principal); E66.9 Obesity, unspecified; K58.9 Irritable bowel syndrome, unspecified; F12.90 Cannabis use, unspecified, uncomplicated; K59.4 Anal spasm; K58.2 Mixed irritable bowel syndrome; K44.9 Diaphragmatic hernia without obstruction or gangrene; B35.0 Tinea barbae and tinea capitis; S43.004A Unspecified dislocation of right shoulder joint, initial encounter; X58.XXXA Exposure to other specified factors, initial encounter; Y93.9 Activity, unspecified; Y92.9 Unspecified place or not applicable; Y99.9 Unspecified external cause status; Z68.33 Body mass index [BMI] 33.0-33.9, adult | CPT/HCPCS: 96127; 99212; 99395 ==

== ENCOUNTER 2025-04-10 10:43 | Outpatient (AMB) | payer OTHER, SELFPAY ==
--- NOTE | 2025-04-10 11:29 | A.OFFVIS_ITS ---
Vital Signs 04/10/25 11:30 Height 5 ft 8 in Weight 223 lb BMI 33.9 BP 109/79 Blood Pressure Location Lt brachial Position Sitting Pulse 72 Pulse Source Pulse Oximeter Pulse Oximetry (%) 97 Oxygen Delivery Method Room Air Intake Visit Reasons: Pre-Rt Shld Bankart Repair 04/16/25 NE Intake Note: Diogo is a 29 year old right hand dominant male who presents today pre-operatively for discussion of his upcoming right shoulder Bankart Repair scheduled for 04/16/[address] Scott. Patient was given a pain management form. He was fitted for an ultra sling, vitals were taken. Allergies merida (cherries) Adverse Reaction (Verified 04/10/25 11:32) Gastrointestinal Upset HPI HPI Pre-Rt Shld Bankart Repair 04/16/25 NE: Details: Mr. Alanis is a 29-year-old male who presents to the office today for his history and physical examination pending right shoulder Bankart repair tentatively scheduled for 04/16/[address] Scott. Patient states that he has a history of IBS with constipation and is concerned with postoperative narcotic medications. He has been under anesthesia for a colonoscopy and has done well with no concerns. He has an allergy to cherries. [facility] Medical History Elevated systolic blood pressure reading without diagnosis of hypertension Irritable bowel syndrome with both constipation and diarrhea Cannabis use disorder Cyclic vomiting syndrome Surgical History H/O colonoscopy No pertinent past surgical history Social History Household Members: Family Housing: House Do you presently have visiting nurse or other home services: No Patient Tobacco Use Status: Former Tobacco user Tobacco use type: Cigarette Cigarette Packs Per Day: 1 Cigarettes Per Day: 20 Years Smoked: 7 e-Cigarette/Vaping Use: Never Used Substance Use Type: Marijuana service: No Current occupational status: employed 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 Patient has a positive apprehension test. Assessment & Plan Assessment & Plan (1) Dislocation of right shoulder joint: Code(s): S43.004A - Unspecified dislocation of right shoulder joint, initial encounter Category: Medical Plan Mr. Alanis is a 29-year-old male who presents to the office today for his history and physical examination pending right shoulder Bankart repair tentatively scheduled for 04/16/[address] Scott. Patient states that he has a history of IBS with constipation and is concerned with postoperative narcotic medications. He has been under anesthesia for a colonoscopy and has done well with no concerns. He has an allergy to cherries. While in the office today, the patient was fit for an abduction sling off the shelf. A physical therapy order has been placed while in the office today and instruction to the patient was given to contact them to make a postoperative physical therapy appointment within 1 week post surgery. Additionally, I sent oxycodone 5-325 mg 1 tab p.o. Q 4 6 H PRN pain # 42 as well as MS Contin 15 mg p.o. q.12 hours #6 to the pharmacy at [facility] to be delivered to the PACU on the day of surgery. Lastly, I did send an additional prescription for Colace to the pharmacy that will also be delivered to the PACU on date of surgery due to the patient's past history of constipation. I discussed in detail the procedure and what to expect pre and post operatively. We discussed the risks, benefits and alternatives to the surgery as well as the rehabilitation course. The risks; which include, but are not limited to infection, bleeding, nerve injury, ongoing pain, swelling, and stiffness, perioperative risk of injury to bones and soft tissues, and blood clots. I?ve answered all questions and with their understanding they have consented to move forward with right shoulder Bankart repair with Dr. Scott. Orders: Orders PT Evaluation and Treatment Today S43.004A - Unspecified dislocation of right shoulder joint, initial encounter Medications: New oxycodone-acetaminophen 5-325 mg Partial Fill upon patient request. Pharmacy to pleased deliver to PACU on date of surgery 04/16/2025 1 tab PO Q4- 6H PRN 42 tabs 0RF pain 7 days morphine ER (MS Contin) Partial Fill upon patient request. Pharmacy to pleased deliver to PACU on date of surgery 04/16/2025 15 mg PO Q12H 6 tabs 0RF 3 days docusate sodium (Colace) Pharmacy to pleased deliver to PACU on date of surgery 04/16/2025 100 mg PO BID 60 caps 0RF 30 days Coding Level of Care Code Global (43591) Diagnoses Dislocation of right shoulder joint S43.004A
[2025-04-10 11:30] VITALS: BP 109/79; PULSE 72; O2SAT 97; BMI 33.9
--- OUTSIDE RECORDS SUMMARY | 2025-04-10 11:35 | XMS_ITS ---
Author Name [facility] Organization Unknown Care Team Organization Name Specialty Phone Email Start Date End Da te [facility] 07/26/2022 05/06/20 24
--- OUTSIDE RECORDS SUMMARY | 2025-04-10 11:35 | XMS_ITS | Patient Health Record ---
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 Problem 84818435 Nausea and vomiting, unspecified vomiting type (R11.2) Active confirmed Encounters Encounter Location Date Provider Diagnosis [facility] [address] [place] [phone] 07/02/2024 Shreyas Mike Jr [facility] [address] [place] [address] 10/08/2024 Shreyas Mike Jr Plan Of Treatment Future Test Test Name Order Date UPPER GI ENDOSCOPY 11/15/2023 COLONOSCOPY 11/15/2023 Insurance Providers Payer Name Payer Address Payer Phone Subscriber Number Group Number Insured Name Patient Relationship to Insured Coverage Start Date Coverage End Date [facility] [employer] [facility] [address] [address] [place], [place] [id number] MANZANARESALIYAH MOYAEN Self - patient is the [...]
== END 2025-04-10 12:56 | disposition home or self-care (01) ==
LOC: HO.HOS 10:44
PROVIDERS: PCP Nurse Practitioner Family; Visit Provider Physician Assistant
DX: S43.004A Unspecified dislocation of right shoulder joint, initial encounter (principal)
CPT/HCPCS: 99024

== ENCOUNTER → 2025-04-10 10:43 | Outpatient (BNVA) | payer OTHER, SELFPAY | PROVIDERS: PCP Nurse Practitioner Family; Visit Provider Physician Assistant | DX: Z01.818 Encounter for other preprocedural examination (principal); S43.004A Unspecified dislocation of right shoulder joint, initial encounter; X58.XXXA Exposure to other specified factors, initial encounter; Y93.9 Activity, unspecified; Y92.9 Unspecified place or not applicable; Y99.9 Unspecified external cause status | CPT/HCPCS: 99212 ==

== ENCOUNTER → 2025-04-16 08:18 | Day surgery (SDC) | payer OTHER, SELFPAY ==
--- OUTSIDE RECORDS SUMMARY | 2025-04-01 09:06 | XMS_ITS | Clinical Summary ---
Author Organization [facility] Address [address] [place] [phone] Phone Care Team Providers Care Supervisor Endless Track Vehicle Name Role Phone Lexa Wheeler MD Primary [...] patient's age to complete this topic Insurance [facility] NON PCC Care Teams Supervisor Endless Track Vehicle Relationship Specialty Start Date End Date Lexa Wheeler MD PCP - General 04/28/17
--- OUTSIDE RECORDS SUMMARY | 2025-04-01 09:06 | XMS_ITS | Patient Health Record ---
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 Problem 85773366 Nausea and vomiting, unspecified vomiting type (R11.2) Active confirmed Encounters Encounter Location Date Provider Diagnosis [facility] [address] [place] [phone] 07/02/2024 Shreyas Mike Jr [facility] [address] [place] [address] 10/08/2024 Shreyas Mike Jr Plan Of Treatment Future Test Test Name Order Date UPPER GI ENDOSCOPY 11/15/2023 COLONOSCOPY 11/15/2023 Insurance Providers Payer Name Payer Address Payer Phone Subscriber Number Group Number Insured Name Patient Relationship to Insured Coverage Start Date Coverage End Date [facility] [employer] [facility] [address] [address] [place], [place] [id number] MANZANARESALIYAH MOYAEN Self - patient is the [...]
[2025-04-14 11:50] VITALS: BMI 33.9
--- NOTE | 2025-04-15 09:21 | HO.ANESPROP2 ---
Documented by User: Gricelda Howard NP 04/15/25 09:23 HPI - Anesthesia Eval Consult details Narrative: 29yo M for Right Shoulder Bankhart Operation Arthroscopic PMFSH Active Problems Active Problems: All Active Problems Tinea barbae (Acute) Obesity (BMI 30-39.9) (Acute) Bicipital tendinitis, left shoulder (Acute) Dislocation of right shoulder joint (Acute) Class 2 obesity with body mass index (BMI) of 37.0 to 37.9 in adult (Acute) Encounter for general adult medical examination without abnormal findings (Acute ~03/27/25) Encounter for screening examination for sexually transmitted disease (Acute) Hiatal hernia (Acute) H pylori ulcer (Acute) At risk for malnutrition (Acute) Proctalgia fugax (Acute) Rectal pain (Acute) Cannabis use disorder (Acute) Cyclic vomiting syndrome (Acute) Irritable bowel syndrome with both constipation and diarrhea (Acute) Past Medical History Medical History Asthma Hiatal hernia Irritable bowel syndrome with both constipation and diarrhea Cannabis use disorder Cyclic vomiting syndrome Family History Family history of problems with anesthesia: No Surgical History Surgical History History of esophagogastroduodenoscopy (EGD) H/O colonoscopy History of Problems with Anesthesia: No Social History Social History Household Members: Family Housing: House Do you presently have visiting nurse or other home services: No Patient Tobacco Use Status: Former Tobacco user Tobacco use type: Cigarette Cigarette Packs Per Day: 1 Cigarettes Per Day: 20 Years Smoked: 7 e-Cigarette/Vaping Use: Never Used Use of substances other than those prescribed or required for medical reasons: Yes Substance Use Type: Marijuana Are you DNR?: No Advance Directives: No Advance Directives Information Provided: Yes Poor oral hygiene: No service: No Current occupational status: employed 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 Cognitive needs: No Hearing needs: No Vision needs: No Meds Allergies Allergy/AdvReac Type Severity Reaction Status Date / Time merida (cherries) AdvReac Gastrointestinal Verified 04/10/25 11:32 Upset Home Medications ?Medication ?Instructions ?Recorded ?Confirmed ?Last Taken ?Type acetaminophen 500 mg tablet 1,000 mg PO Q6H PRN Pain 11/08/23 04/14/25 Unknown History (Acetaminophen Extra Strength) Exam Height,Weight and Vital Signs: Height 5 ft 8 in Weight 101.151 kg Assessment and Plan Assessment Anesthesia Assessment: Chart Reviewed Final Anesthetic Review Family History of Problems with Anesthesia: No History of Problems with Anesthesia: No Documented by User: Catherine Yee MD 04/16/25 10:00 [facility] Past Medical History Medical History Asthma Hiatal hernia Irritable bowel syndrome with both constipation and diarrhea Cannabis use disorder Cyclic vomiting syndrome Surgical History Surgical History History of esophagogastroduodenoscopy (EGD) H/O colonoscopy Social History Social History Household Members: Family Housing: House Do you presently have visiting nurse or other home services: No Patient Tobacco Use Status: Former Tobacco user Tobacco use type: Cigarette Cigarette Packs Per Day: 1 Cigarettes Per Day: 20 Years Smoked: 7 e-Cigarette/Vaping Use: Never Used Use of substances other than those prescribed or required for medical reasons: Yes Substance Use Type: Marijuana Are you DNR?: No Advance Directives: No Advance Directives Information Provided: Yes Poor oral hygiene: No service: No Current occupational status: employed 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 Cognitive needs: No Hearing needs: No Vision needs: No Meds Allergies Allergy/AdvReac Type Severity Reaction Status Date / Time merida (cherries) AdvReac Gastrointestinal Verified 04/10/25 11:32 Upset Home Medications ?Medication ?Instructions ?Recorded ?Confirmed ?Last Taken ?Type acetaminophen 500 mg tablet 1,000 mg PO Q6H PRN Pain 11/08/23 04/14/25 Unknown History (Acetaminophen Extra Strength) Exam Airway Mallampati Class: II TM Dist: >3cm Neck ROM: Full Heart: rrr Lungs: cta Assessment and Plan Assessment Anesthesia Assessment: Anesthesia Plan Discussed Final Anesthetic Review NPO: Yes ASA Class: II Final Preanesthetic Review: No Changes in Pt Med Stat, Meds/Allgs Chart Reviewed, Consent Obtained/Reviewed and Anes Risks/Benef Reviewed Patient Risk: Low Procedure Risk: Intermediate Anesthetic Plan Anesthetic Plan: GA, Regional Block and Agree w/ Assess. and Plan Disposition: Standard PACU
[2025-04-16] VITALS (11 sets, daily range): BP systolic 105–151; BP diastolic 70–88; PULSE 61–71; RESP 16–18; TEMP 36.2–37; O2SAT 96–100; BMI 33.2
[2025-04-16] MEDS: Lactated Ringers 1,000 ML 100 ML IVCONT (10:12)
--- NOTE | 2025-04-16 10:28 | MHC.SHP ---
Pre-Procedural Eval Section A - 24 Hr Update-Section A only Date of Service: 04/16/25 The patient is an INPATIENT: No Changes since office visit: No Cold of Flu in the past 2 weeks, No New Medical Problems, No Changes in Medication and No Patient answered all questions The patient has been examined within 24 hours of the surgical procedure. The History & Physical has been completed within 30 days and I have reviewed it.: Yes Section B - Complete if H&P > 30 days Chief Complaint: Unspecified dislocation of right shoulder joint, Allergies: Allergies Allergy/AdvReac Type Severity Reaction Status Date / Time fuad (edita) AdvReac Gastrointestinal Verified 04/10/25 11:32 Upset Plan I have reviewed the history and physical and performed a pertinent physical examination on my patient. No changes have occurred unless specified. Time Spent With Patient Time: Total time managing care of this patient today ____ minutes.
--- NOTE | 2025-04-16 15:05 | P.BOP_ITS ---
Brief Operative Note Date of Service: 04/16/25 Pre-op diagnosis: right shoulder instability Post-op diagnosis: other (1) right shoulder instability with bankhart 2) SLAP tear) Procedure: Capsular plication Sub pectoral biceps tenodesis Implants: Marcano and Nephew Arthrex distal biceps endobutton and interference screw Surgeon: Jacques Scott MD Was an Intelligence Specialist used for this Procedure?: Yes Intelligence Specialist: Ana Cristina Lynch Estimated blood loss (mL): 25 IV fluids (mL): 1,000 Pathology: none sent Condition: stable Disposition: PACU
--- NOTE | 2025-04-17 08:14 | P.OP_ITS ---
Operative Note Operative Note Date of Service: 04/16/25 Narrative: Date of Service: 04/16/25 Pre-op diagnosis: right shoulder instability Post-op diagnosis: other (1) right shoulder instability with bankhart 2) SLAP tear) Procedure: Capsular plication Sub pectoral biceps tenodesis Implants: Marcano and Nephew Arthrex distal biceps endobutton and interference screw Surgeon: Jacques Scott MD Was an Health Sciences Department Chair used for this Procedure?: Yes Health Sciences Department Chair: Ana Cristina Lynch Estimated blood loss (mL): 25 IV fluids (mL): 1,000 Pathology: none sent Condition: stable Disposition: PACU Procedure in detail: Patient was brought to the operating room and placed the the beach chair position. All bony prominences were well padded and the limb was prepped and draped in standard sterile fashion. A time out was called to identify proper site, proper procedure and proper surgeon. IV antibiotics per weight were administered. I began by making a posterolateral stab incision with a 15 blade. A blunt trochar was placed into the glenohumeral joint and I insufflated the joint with saline and a 30 degree arthroscope was placed. I established an outside- in anterior portal just distal to the biceps tendon. I then began my inspection of the glenohumeral joint. There was min G 1 cartilage changes of the tina-inferior glenoid. The subscapularis was intact and there was no under- surface RTC tearing. There was a large type 4 slap tear as well as a patulous anterior capsule and a anterior inferior Bankart. There was Hill-Sachs lesion and a positive drive-through sign. Given the extent of the SLAP tear I performed a biceps tenotomy and then turned my attention to the anterior inferior capsule. I placed a inferior plicating suture through the anterior- inferior capsule at the 5 o'clock position. A all suture Marcano and nephew anchor was then inserted at the 5 o'clock position. This tightened the anterior inferior pouch nicely. I then used a Colquitt to rasp the anterior glenoid between the 05:00 and 3 o'clock position. I then repeated this process with a passing suture through the capsule and capturing the anterior labrum. This was then brought to a 2nd Marcano and Nephew all suture anchor and the anterior bumper was further created. Finally I repeated this process again and placed a 3rd anchor, this time a 2.7 mini anchor at the 3 o'clock position was used to complete the anterior bumper and restrict anterior dislocation. The drive-through sign was restricted and I was satisfied with the plication and Bankart repair. I then turned my attention to the subpectoral biceps tenodesis. The arthroscopic portals were closed and I made a oblique incision over Elysia's lines at the axillary fold. Blunt dissection was taken down medial to the deltoid and superior to the PICC until I was able to palpate the bicipital groove. Two [place] retractors were used to visualize this and the biceps was removed through the incision. Biceps was then whipstitched and the cut end was shortened by 1 cm. I then drilled a Beath pin bicortically at the bicipital groove just inferior to the leading edge of the Crvaen. I then over-drilled the near cortex with a 7.5 Reamer. I endo button was then attached to the FiberWire and inserted bicortically. The button was then flipped and the biceps tightened and dumped into the proximal humerus. I placed the 7.0 Arthrex interference screw and examined my construct. I was satisfied with the stability and the tension. I then irrigated copiously. This wound was closed with a absorbable suture and skin glue and Steri-Strips. Patient was placed into a sterile dressing and a abduction sling. He was extubated and brought to recovery room in stable condition. There were no known complications.
== END | disposition home or self-care (01) ==
PROVIDERS: PCP Nurse Practitioner Family; Visit Provider Orthopaedic Surgery
PROC: (CPT 29806; principal; 2025-04-16 13:20)
DX: S43.004A Unspecified dislocation of right shoulder joint, initial encounter (principal); S43.431A Superior glenoid labrum lesion of right shoulder, initial encounter; M25.311 Other instability, right shoulder; M25.511 Pain in right shoulder; X58.XXXA Exposure to other specified factors, initial encounter; Y93.9 Activity, unspecified; Y92.9 Unspecified place or not applicable; Y99.9 Unspecified external cause status; R03.0 Elevated blood-pressure reading, without diagnosis of hypertension; K58.2 Mixed irritable bowel syndrome; R11.15 Cyclical vomiting syndrome unrelated to migraine; F12.90 Cannabis use, unspecified, uncomplicated; Z87.891 Personal history of nicotine dependence
CPT/HCPCS: 29806; 29828; C1713; J0131; J0165; J0665; J0690; J1100; J2003; J2250; J2405; J2704; J3010

== ENCOUNTER 2025-04-22 08:26 | Outpatient (AMB) | payer OTHER, SELFPAY ==
--- NOTE | 2025-04-22 08:33 | MHC.OFFVIS ---
Intake Visit Reasons: Po-Rt Shld Bankart Repair 04/16/25 Intake Note: Diogo is a 29 year old right hand dominant male who presents today for a post operative appointment status post right shoulder Bankart repair done on 04/16/[address] Scott. Patient reports he is having pain and the pain medication is giving him mild relief. Allergies merida (cherries) Adverse Reaction (Verified 04/22/25 09:22) Gastrointestinal Upset HPI HPI Po-Rt Shld Bankart Repair 04/16/25: Details: Mr. Alanis is a 29 year old male who presents to the office today status post right shoulder capsular plication and subpectoral biceps tenodesis performed on 04/16/[address] Scott. Patient presents to the office today in the abduction sling positioned appropriately. He has his 1st physical therapy session on 04/25/2025 at 14:00 with [facility]. Patient complains of pain in the right shoulder. He is currently using the Percocet 5-325 mg Q 4-6 hours. [facility] Medical History Asthma Hiatal hernia Irritable bowel syndrome with both constipation and diarrhea Cannabis use disorder Cyclic vomiting syndrome Surgical History History of esophagogastroduodenoscopy (EGD) H/O colonoscopy Social History Household Members: Family Housing: House Do you presently have visiting nurse or other home services: No Patient Tobacco Use Status: Former Tobacco user Tobacco use type: Cigarette Cigarette Packs Per Day: 1 Cigarettes Per Day: 20 Years Smoked: 7 e-Cigarette/Vaping Use: Never Used Substance Use Type: Marijuana service: No Current occupational status: employed 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 Steri-Strips over the area of the biceps tenodesis are intact. No signs of infection. Forward flexion abduction 45 degrees. External rotation to neutral. NVI. Psych Appearance: grossly normal Mental Status: mental status grossly normal Attitude: cooperative Assessment & Plan Assessment & Plan (1) Dislocation of right shoulder joint: Code(s): S43.004A - Unspecified dislocation of right shoulder joint, initial encounter Category: Medical (2) Bicipital tendinitis, left shoulder: Code(s): M75.22 - Bicipital tendinitis, left shoulder Category: Medical Plan Mr. Alanis is a 29 year old male who presents to the office today status post right shoulder capsular plication and subpectoral biceps tenodesis performed on 04/16/[address] Scott. Patient presents to the office today in the abduction sling positioned appropriately. He has his 1st physical therapy session on 04/25/2025 at 14:00 with [facility]. Patient complains of pain in the right shoulder. He is currently using the Percocet 5-325 mg Q 4-6 hours. While in the office today, sutures were removed and steri-strips applied. The Steri-Strips will remain intact over the incision site of the biceps tenodesis. I instructed the patient that the Steri-Strips will fall off on their own. Should they still remain on in the next week he may remove them. He may begin to shower. Patient was placed back in the sling and instructed that he will remain in the sling for 6 weeks. He will attend physical therapy beginning 04/25/[address] Scott in 4 weeks, sooner if needed. Coding Level of Care Code Global (61529) Diagnoses Dislocation of right shoulder joint S43.004A Bicipital tendinitis, left shoulder M75.22
--- OUTSIDE RECORDS SUMMARY | 2025-04-22 08:35 | XMS_ITS | Clinical Summary ---
Author Organization [facility] Address [address] [place] [phone] Phone Care Team Providers Care [employer] Assistant Manager Name Role Phone Lexa Wheeler MD [...] patient's age to complete this topic Insurance [facility] NON PCC Care Teams [employer] Assistant Manager Relationship Specialty Start Date End Date Lexa Wheeler MD PCP - General 04/28/17
--- OUTSIDE RECORDS SUMMARY | 2025-04-22 08:36 | XMS_ITS | Patient Health Record ---
Author Organization 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 Problem 56857558 Nausea and vomiting, unspecified vomiting type (R11.2) Active confirmed Encounters Encounter Location Date Provider Diagnosis [facility] [address] [place] [phone] 07/02/2024 Shreyas Mike Jr [facility] [address] [place] [address] 10/08/2024 Shreyas Mike Jr Plan Of Treatment Future Test Test Name Order Date UPPER GI ENDOSCOPY 11/15/2023 COLONOSCOPY 11/15/2023 Insurance Providers Payer Name Payer Address Payer Phone Subscriber Number Group Number Insured Name Patient Relationship to Insured Coverage Start Date Coverage End Date [facility] [employer] [facility] [address] [address] [place], [place] [id number] MANZANARESALIYAH MOYAEN Self - patient is the [...]
== END 2025-04-22 09:22 | disposition home or self-care (01) ==
LOC: HO.HOS 08:26
PROVIDERS: PCP Nurse Practitioner Family; Visit Provider Physician Assistant
DX: S43.004A Unspecified dislocation of right shoulder joint, initial encounter (principal); M75.22 Bicipital tendinitis, left shoulder
CPT/HCPCS: 99024

== ENCOUNTER → 2025-04-22 08:26 | Outpatient (BNVA) | payer OTHER, SELFPAY | PROVIDERS: PCP Nurse Practitioner Family; Visit Provider Physician Assistant | DX: M25.511 Pain in right shoulder (principal); S43.004A Unspecified dislocation of right shoulder joint, initial encounter; M75.22 Bicipital tendinitis, left shoulder; Z98.890 Other specified postprocedural states | CPT/HCPCS: 99212 ==

== ENCOUNTER 2025-08-06 18:52 | Emergency (ER) | payer OTHER, SELFPAY ==
--- NOTE | ~2025-08-06 | XR_ITS ---
CLINICAL HISTORY: ?L shoulder dislocation 2 view left shoulder Comparison: CR - XR SHOULDER RT MIN 2V - 12/28/24 22:13 EDT Findings: Anterior inferior dislocation of the glenohumeral joint. No significant arthritic change. No erosions. No radiopaque foreign body. IMPRESSION: 1. Anterior inferior dislocation of the glenohumeral joint. This document has been electronically signed by: Destiny Tony MD on 08/06/2025 19:43:54
[2025-08-06 19:05] VITALS: BP 157/101; PULSE 125; RESP 20; TEMP 37.3; O2SAT 100; BMI 33.4
--- NOTE | 2025-08-06 19:05 | ED_ITS ---
HPI - Extremity Injury (Upper) General Chief Complaint: Extremity Problem Stated Complaint: left arm injury (dislocation) Time Seen by Provider: 08/06/25 19:19 History of Present Illness ED Provider: Morris Garcia MD HPI narrative: 29-year-old male with no significant medical history aside from cyclic vomiting and a isolated right-sided shoulder dislocation past comes with a spontaneous dislocation of the left shoulder said he was stretching his arms out and the shoulder popped out he has had significant pain deformity since that time. No numbness tingling weakness in the upper extremity Related Data Home Medications ?Medication ?Instructions ?Recorded ?Confirmed acetaminophen 500 mg tablet 1,000 mg PO Q6H PRN Pain 0 11/08/23 04/14/25 (Acetaminophen Extra Strength) Previous Rx's ?Medication ?Instructions ?Recorded dicyclomine 10 mg capsule 20 mg (2 x 10 mg) PO QIDACHS PRN 10/17/23 abd pain #90 caps betamethasone dipropionate 0.05 % 1 appl topical DAILY PRN skin 03/27/25 topical cream irritation #45 grams terbinafine HCl 1 % topical cream 1 appl topical BID # 30 grams 03/27/25 (Antifungal (terbinafine)) morphine 15 mg tablet,extended 15 mg PO Q12H 3 days #6 tabs 04/10/25 release (MS Contin) oxycodone-acetaminophen 5 mg-325 1 tab PO Q4-6H PRN pa in 7 days #42 04/22/25 mg tablet tabs Allergies Allergy/AdvReac Type Severity Reaction Status Date / Time merida (cherries) AdvReac Gastrointestinal Verified 08/06/25 19:07 Upset PMFSH Past Medical History Medical History Asthma Hiatal hernia Irritable bowel syndrome with both constipation and diarrhea Cannabis use disorder Cyclic vomiting syndrome Surgical History History of esophagogastroduodenoscopy (EGD) H/O colonoscopy Social History Social History Household Members: Family Housing: House Do you presently have visiting nurse or other home services: No Alcohol intake: never Patient Tobacco Use Status: Former Tobacco user Tobacco use type: Cigarette Cigarette Packs Per Day: 1 Cigarettes Per Day: 20 Years Smoked: 7 e-Cigarette/Vaping Use: Never Used Substance Use Type: Marijuana service: No Current occupational status: employed 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 No apparent distress. Alert. HEAD/NECK: No visual trauma. EYES: Normal to inspection. No conjunctival erythema. No discharge. ENMT: Hearing grossly normal. External nose normal. RESPIRATORY: Respiratory effort normal. CARDIOVASCULAR: Additional details (Grossly well perfused). SKIN: No jaundice. NEUROLOGICAL: Alert. Moving all extremities x4. Additional details (No gross motor deficits. Normal tone. ). PSYCHIATRIC: Alert. Appearance appropriate for situation. MSK: Deformity of the left upper extremity with step-off of the acromion. No bruising or ecchymosis. Soft compartments throughout the left upper extremity. Intact college administrator strength and sensation distally. Prominence in the left anterior axilla lateral pectoral region consistent with the anterior shoulder dislocation Vital Signs: Vital Signs: Last Vital Signs Temp 98.7 F 08/06/25 21:38 Pulse 68 08/06/25 21:38 Resp 15 08/06/25 21:38 BP 138/68 08/06/25 21:38 Pulse Ox 100 08/06/25 21:38 O2 Del Method Room Air 08/06/25 21:38 BMI result Body Mass Index 33.4 Course Course Course Narrative: This is a Rapid Medical Exam performed in triage by Cristy Gómez PA-C. Full HPI, ROS and PE to be performed by primary ED provider. 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 Denies injury/fall or trauma PE: +L shoulder deformity. NV intact Plan: XR Medications Administered Discontinued Medications Generic Name Dose Route Start Last Admin Trade Name Immanuelq PRN Reason Stop Dose Admin Diazepam 2 mg 08/06/25 19:27 08/06/25 19:46 Diazepam 2 Mg Tablet PO 08/06/25 19:28 2 mg ONCE ONE Administration Ibuprofen 600 mg 08/06/25 21:29 08/06/25 21:32 Ibuprofen 600 Mg Tablet PO 08/06/25 21:30 600 mg ONCE ONE Administration Lidocaine/Epinephrine 10 ml 08/06/25 19:27 08/06/25 19:46 Lidocaine Hcl 1%/Epi 1:100,000 10 Ml Vial INFILTRATI 08/06/25 19:28 10 ml ONCE ONE Administration Morphine Sulfate 15 mg 08/06/25 19:27 08/06/25 19:46 Morphine Sulfate Immed Release 15 Mg Tablet PO 08/06/25 19:28 15 mg ONCE ONE Administration Medical Decision Making Medical Decision Making MDM Narrative: Medical Decision Making: Spontaneous atraumatic left shoulder dislocation, this is a recurrence contralaterally. No known connective tissue disorder. No reported seizure disorder to suggest seizure as etiology of the patient was awake during the episode. No fracture. X-ray see below interpreted as anterior shoulder dislocation without traumatic deformities. The patient was set up after risks benefit discussion informed consent shared decision-making to attempt nerve block and shoulder reduction awake. He was on amenable to this and it was successful. Postprocedurally the patient was neurovascularly intact placed in a sling and had proper positioning of the left shoulder joint with ultrasound see independent ultrasound reports Preliminary Favored Differential Diagnosis: Shoulder dislocation among additional considered etiologies Testing Interpreted Independently: Anterior shoulder dislocation without traum atic deformities Radiology or Lab testing Results Reviewed: ?See below for details Consults: ?See below for details Independent Historians/External Chart Reviews: ?See below for details Social Determinants of Health Impacting MDM/Planning: ?See below for details Lab Data Labs: Lab Results 08/06/25 Range/Units 19:36 Influenza Type A (PCR) NEGATIVE (Negative) Influenza Type B (PCR) NEGATIVE (Negative) RSV RNA Qual (PCR) NEGATIVE (Negative) SARS-CoV-2 RNA (RT-PCR) NEGATIVE (Negative) Procedures Procedure Narrative Procedure Narrative: Nerve Block Procedure: Indication: Anesthesia/Analgesia for the affected area. Performed by: Morris Garcia MD Approximate Time: A left interscalene nerve block was performed. After explanation of the risks, benefits, and alternatives verbal consent was obtained A neurologic exam was conducted including motor and/or sensory testing of the brachial plexus, There were no deficits. Extremity compartments were soft. The area of injection was prepped with chlorhexidine. A 20 gauge, 1.5 in in length needle was used. Ultrasound guidance with real-time visualization of the needle tip was utilized throughout the procedure. In-plane approach was used to visualize needle tip. Images were saved. Approximately 10ml of, Lidocaine with epinephrine was injected near the nerve structure or plane. Local anesthetic gradually injected ?in small aliquots of 3- 5ml following negative aspiration. There was no complication ?during the procedure. There were no signs of local anesthetic toxicity. There were no other complications. Patient tolerated the procedure. ??Following the procedure, the blocked extremity was protected or positioned to prevent injury. CPT: ?(ZACKERY DIOR/DOCUMENT US; US GUIDANCE IS BUNDLED) Brachial Plexus (interscalene): 11388 ___ EMERGENCY ULTRASOUND INTERPRETATION- Limited Musculoskeletal [This study was ordered, performed, and interpreted by myself. The study reveals: Impression: Postreduction with adequate placement of the humeral head in the glenoid fossa left side [Indication: Postreduction Joint Localization for fluid (anechoic): Adequate positioning of the humeral head left glenoid fossa Performed by: Morris Garcia MD Images were stored ] Orthopedic Joint Reduction Joint #1: Time Out Performed: Yes Side: right Joint Reduction Location: shoulder Analgesia: nerve block Shoulder Technique Used (if applicable): traction/counter-traction and scapula manipulation Post-reduction neuro exam: intact Post-reduction vascular: intact Post Reduction X-Ray Obtained: No Patient Tolerated Procedure: well Discharge Plan Discharge Clinical Impression: Anterior shoulder dislocation Patient Disposition: Home, Self-Care Instructions: Shoulder Dislocation (ED), Shoulder Immobilizer (ED) Additional Instructions: You were evaluated for shoulder dislocation you received an interscalene nerve block of the brachial plexus which allowed for reduction of your shoulder without sedation. Call orthopedics for follow up Prescriptions: No Action dicyclomine 10 mg Capsule 20 mg PO QIDACHS PRN (Reason: abd pain) Qty: 90 0RF acetaminophen [Acetaminophen Extra Strength] 500 mg Tablet 1,000 mg PO Q6H PRN (Reason: Pain) oxycodone-acetaminophen 5-325 mg tablet 1 tab PO Q4-6H PRN (Reason: pain) 7 Days Qty: 42 0RF Rx Instructions: Partial Fill upon patient request. terbinafine HCl [Antifungal (terbinafine)] 1 % cream 1 appl topical BID Qty: 30 3RF betamethasone dipropionate 0.05 % cream 1 appl topical DAILY PRN (Reason: skin irritation) Qty: 45 2RF morphine [MS Contin] 15 mg tablet extended release 15 mg PO Q12H 3 Days Qty: 6 0RF Rx Instructions: Partial Fill upon patient request. Pharmacy to pleased deliver to PACU on date of surgery 04/16/2025 [place] [facility] [Provider Group, Hand Surgery] Interventions: ED Discharge Assessment Last Done: 08/06/25 21:38 Discharge Date/Time: 08/06/25 21:41 Print Language: Turkish
[2025-08-06] MEDS: Lidocaine HCl 1%/Epi 1:100,000 10 ML VIAL INFILTRATI (19:46)
[2025-08-06] MEDS: Morphine Sulfate Immed Release 15 MG TABLET PO (19:46)
[2025-08-06 20:52] LABS: Resp Syncy Virus RNA Qual PCR NEGATIVE (Negative); SARS COV2 PCR INHOUSE NEGATIVE (Negative)
[2025-08-06 21:38] VITALS: BP 138/68; PULSE 68; RESP 15; TEMP 37.1; O2SAT 100
--- OUTSIDE RECORDS SUMMARY | 2025-08-07 05:18 | XMS_ITS | Encounter Summary ---
Author Organization [facility] Address [address] [place], [place] [phone] Phone Care Team Providers Care Hospital Receiving Clerk Name Role Phone Lexa Wheeler MD Primary Care Provider Unavailabl e Encounter Details Date Type Department Care Team (Late st Contact Info) Description 05/22/2014 [place] [facility] [place] [address] [place] [address] Family Medicine, Physician [address] [place], [place] [address] Social History Tobacco Use Types Packs/Day Years [...] on filedocumented in this encounter Care Teams Hospital Receiving Clerk Relationship Specialty Start Date End Date Lexa Wheeler MD PCP - General 04/28/17 documented as of this encounter
--- OUTSIDE RECORDS SUMMARY | 2025-08-07 05:18 | XMS_ITS | Encounter Summary ---
Author Organization [facility] Address [address] [place], [place] [phone] Phone Care Team Providers Care Edgerman Name Role Phone Lexa Wheeler MD Primary Care Provider Unavailabl e Encounter Details Date Type Department Care Team (Late st Contact Info) Description 03/11/2014 Documentation [facility] [place] [address] [place] [address] Family Medicine, Physician [address] [place], [place] [address] Social History Tobacco Use Types Packs/Day Years [...] on filedocumented in this encounter Care Teams Edgerman Relationship Specialty Start Date End Date Lexa Wheeler MD PCP - General 04/28/17 documented as of this encounter
--- OUTSIDE RECORDS SUMMARY | 2025-08-07 05:18 | XMS_ITS | Encounter Summary ---
Author Organization [facility] Address [address] [place], [place] [address] Phone Care Team Providers Care Regulatory Affairs Director Name Role Phone Lexa Wheeler MD Primary Care Provider Unavailabl e Encounter Details Date Type Department Care Team (Late st Contact Info) Description 05/12/2014 [place] [facility] [place] [address] [place] [address] Family Medicine, Physician [address] [place], [place] [address] Social History Tobacco Use Types Packs/Day Years [...] on filedocumented in this encounter Care Teams Regulatory Affairs Director Relationship Specialty Start Date End Date Lexa Wheeler MD PCP - General 04/28/17 documented as of this encounter
--- OUTSIDE RECORDS SUMMARY | 2025-08-07 05:18 | XMS_ITS | Encounter Summary ---
Author Organization [facility] Address [address] [place], [place] [phone] Phone Care Team Providers Care Qual Research Manager Name Role Phone Lexa Wheeler MD Primary Care Provider Unavailabl e Encounter Details Date Type Department Care Team (Late st Contact Info) Description 12/15/2015 Documentation [facility] [place] Medicine [address] [place] [address] Family Medicine, Physician [address], [place] [address] Social History Tobacco Use Types Packs/Day Years [...] on filedocumented in this encounter Care Teams Qual Research Manager Relationship Specialty Start Date End Date Lexa Wheeler MD PCP - General 04/28/17 documented as of this encounter
--- OUTSIDE RECORDS SUMMARY | 2025-08-07 05:18 | XMS_ITS | Clinical Summary ---
Author Organization [facility] Address [address] [place] [phone] Phone Care Team Providers Care Waitstaff Name Role Phone Lexa Wheeler MD Primary [...] Date Last Done Comments Influenza Vaccines (#1) 2025 06/21/20 18, 07/11/2017, 09/08/2016, Additional history exists COVID-19 Vaccine (2024- season) 2025 DTaP,Tdap,and Td Vaccines (8 - Td or [...] patient's age to complete this topic Insurance [facility] NON PCC Care Teams Waitstaff Relationship Specialty Start Date End Date Lexa Wheeler MD PCP - General 04/28/17
--- OUTSIDE RECORDS SUMMARY | 2025-08-07 05:18 | XMS_ITS | Patient Health Record ---
Author Organization [facility] Address [address] [place] [id number] Care Team Providers Care Social Organization Professor Name Role Phone Korin Butts Primary Care Provider Shreyas Sawyer Jr Unavailable Allergies Allergen (clinical drug ingredient) Drug/Non Drug Allergy documented on EMR Reaction Allergy Type Onset Date Status Petersen Unknown Drug Allergy Active Reason For Referral No Information Medications Medication SIG (Take, Route, Frequency, Duration) Notes Start Date End Date Status Clarithromycin 500 MG Tablet 1 tablet Or ally every 12 hrs; Duration: 14 days 11/27/2023 Active Omeprazole 20 MG Capsule Delayed Release 1 Orally b.i.d.; Duration: 14 days 11/27/2023 Active Dicyclomine HCl 20 MG Tablet 1 Orally 2- 4 times a day; Duration: 30 days 10/27/2023 Active MiraLax (colon prep) 17 GM/SCOOP Powder mixed with Gatorade or Crystal Light Orally begin at 5:00 p.m. the day before the procedure; Duration: 1 day 11/15/2023 Active Amoxicillin 500 MG Capsule 2 capsules Or ally Twice a day; Duration: 14 days 11/27/2023 Active Immunizations Vaccine Route Administration Date Status Comme nts Influenza Unknown 11/15/2023 Refused Social History Tobacco Use: Social History Observation Description Date Details (start date - stop date) Never Smoker NA - NA Social History Drugs/Alcohol: Social Info Question Answer Notes Alcohol Screen Did you have a drink containing alcohol in the past year? Yes How often did you have a drink containing alcohol in the past year? Monthly or less (1 point) How many drinks did you have on a typical day when you were drinking in the past year? 1 or 2 drinks (0 point) How often did you have 6 or more drinks on one occasion in the past year? 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 Problem Nausea and vomiting (87994596) Nausea and vomiting, unspecified vomiting type (R11.2) Active confirmed Encounters Encounter Location Date Provider Diagnosis [facility] [address] [place] [address] 10/08/2024 Shreyas Mike Jr Plan Of Treatment Future Test Test Name Order Date UPPER GI ENDOSCOPY 11/15/2023 COLONOSCOPY 11/15/2023 Insurance Providers Payer Name Payer Address Payer Phone Subscriber Number Group Number Insured Name Patient Relationship to Insured Coverage Start Date Coverage End Date [facility] [employer] [facility] [address] [address] [place], [place] [id number] MANZANARESRAMA ALVARENGA Self - patient is the insured Medical (General) History Medical History History ICD Code Indeterminate colitis, diagn osed at age 18 2013, previous treatment mesalamine, steroids, and Humira, patient stopped Humira on his own. Colonoscopy,2021 [place], normal per patient report. Surgical History Surgery Date(Month/Year) Hospitalization History Reason Date(Month/Year) 2 hospitalizations, 10/11 epi ploic appendagitis/proctalgia fugax , 11/11 viral influenza with sepsis 2023
--- OUTSIDE RECORDS SUMMARY | 2025-08-07 05:18 | XMS_ITS | Encounter Summary ---
Author Organization [facility] Address [address] [place], [place] [phone] Phone Care Team Providers Care Topper Packer Name Role Phone Lexa Wheeler MD Primary Care Provider Unavailabl e Encounter Details Date Type Department Care Team (Late st Contact Info) Description 05/13/2014 Documentation [facility] [place] [address] [place] [address] Family Medicine, Physician [address] [place], [place] [address] Social History Tobacco Use Types Packs/Day Years [...] on filedocumented in this encounter Care Teams Topper Packer Relationship Specialty Start Date End Date Lexa Wheeler MD PCP - General 04/28/17 documented as of this encounter
--- OUTSIDE RECORDS SUMMARY | 2025-08-07 05:18 | XMS_ITS | Encounter Summary ---
Author Organization [facility] Address [address] [place] [phone] Phone Care Team Providers Care Wetlands Technician Name Role Phone Lexa Wheeler MD Primary Care Provider Unavailabl e Encounter Details Date Type Department Care Team (Late st Contact Info) Description 05/04/2017 Conversion Encounter [facility] - [address] [address] Social History Tobacco Use Types Packs/Day Years [...] on filedocumented in this encounter Care Teams Wetlands Technician Relationship Specialty Start Date End Date Lexa Wheeler MD PCP - General 04/28/17 documented as of this encounter
--- OUTSIDE RECORDS SUMMARY | 2025-08-07 05:18 | XMS_ITS | Encounter Summary ---
Author Organization [facility] Address [address] [place], [place] [phone] Phone Care Team Providers Care Therapy Tech Name Role Phone Lexa Wheeler MD Primary Care Provider Unavailabl e Encounter Details Date Type Department Care Team (Late st Contact Info) Description 01/06/2017 Documentation [facility] [place] Medicine [address] [place] [address] Family Medicine, Physician [address] [place] [address] Social History Tobacco Use Types Packs/Day Years [...] on filedocumented in this encounter Care Teams Therapy Tech Relationship Specialty Start Date End Date Lexa Wheeler MD PCP - General 04/28/17 documented as of this encounter
== END 2025-08-06 21:41 | disposition home or self-care (01) ==
PROVIDERS: Emergency Provider Emergency Medicine; PCP Nurse Practitioner Family
DX: S43.015A Anterior dislocation of left humerus, initial encounter (principal); X58.XXXA Exposure to other specified factors, initial encounter; Y93.9 Activity, unspecified; Y92.9 Unspecified place or not applicable; M25.512 Pain in left shoulder; Z03.818 Encounter for observation for suspected exposure to other biological agents ruled out; Z87.891 Personal history of nicotine dependence
CPT/HCPCS: 23650; 64415; 73030; 87637; 99284; J2004

== ENCOUNTER 2025-08-20 13:09 | Outpatient (AMB) | payer OTHER, SELFPAY ==
--- NOTE | 2025-08-20 13:11 | A.OFFVIS_ITS ---
Vital Signs 08/20/25 13:13 Height 5 ft 8 in Weight 220 lb BMI 33.4 Intake Visit Reasons: ED- 2 wk f/u s/p shoulder dislocation Intake Note: Diogo is a 29 year old right hand dominant male who presents today for an ER follow up of left shoulder dislocation. Patient presented to [facility] [place] ER on 08/06/25, reporting upon stretching his shoulder popped out with significant pain. He was reduced, placed in a sling and instructed to follow up with orthopedics. Today patient reports ongoing soreness and limited ROM. He has been using arm sling when he is home. Allergies merida (cherries) Adverse Reaction (Verified 08/20/25 13:17) Gastrointestinal Upset Medication List - Last Reconciled 08/20/25 by Rona Dorsey PA-C dicyclomine 20 mg (2 x 10 mg) PO QIDACHS PRN morphine ER (MS Contin) 15 mg PO Q12H 3 days HPI HPI ED- 2 wk f/u s/p shoulder dislocation: Details: 29-year-old gentleman presents to the office today for an injury he sustained to his left shoulder. This was a 1st time dislocation on 08/06/25 with his left shoulder as he was lifting a fridge and the weight of the fridge came down on the shoulder causing a dislocation. He was seen in the emergency department where the shoulder was reduced and he was placed in a sling and referred to our office for follow up. He states since the incident he has some mild discomfort no episodes of instability. Of note he is s/p Rt shoulder Bankart repair with Dr Scott march 2025 . Doing well on the right shoulder he did some PT . PENDING SALE TO [facility] Medical History Asthma Hiatal hernia Irritable bowel syndrome with both constipation and diarrhea Cannabis use disorder Cyclic vomiting syndrome Surgical History History of esophagogastroduodenoscopy (EGD) H/O colonoscopy Social History Household Members: Family Housing: House Do you presently have visiting nurse or other home services: No Alcohol intake: never Patient Tobacco Use Status: Former Tobacco user Tobacco use type: Cigarette Cigarette Packs Per Day: 1 Cigarettes Per Day: 20 Years Smoked: 7 e-Cigarette/Vaping Use: Never Used Substance Use Type: Marijuana service: No Current occupational status: employed 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 He has a positive apprehension test. Negative sulcus. Assessment & Plan Assessment & Plan (1) Dislocation of left shoulder joint: Code(s): S43.005A - Unspecified dislocation of left shoulder joint, initial encounter Category: Medical Plan: Given the patient's clinical exam findings an MRI arthrogram of the left shoulde r has been ordered to further assess the ligamentous structures of the joint. I also placed an order for physical therapy to work on rotator cuff and scapular stabilization techniques. He was given the information to make an appointment. I will see him back once the MRI is completed to discuss the next step in his treatment. Coding Level of Care Code Complex visit Add On G2211 Diagnoses Dislocation of left shoulder joint S43.005A
[2025-08-20 13:13] VITALS: BMI 33.4
--- OUTSIDE RECORDS SUMMARY | 2025-08-20 15:38 | XMS_ITS | Encounter Summary ---
Author Organization [facility] Address [address] [place], [place] [phone] Phone Care Team Providers Care Management Consultant Name Role Phone Lexa Wheeler MD Primary Care Provider Unavailabl e Encounter Details Date Type Department Care Team (Late st Contact Info) Description 05/12/2014 Documentation [facility] [place] Medicine [address] [place] [address] Family Medicine, Physician [address] [place], [place] [address] Social History Tobacco Use Types Packs/Day Years [...] on filedocumented in this encounter Care Teams Management Consultant Relationship Specialty Start Date End Date Lexa Wheeler MD PCP - General 04/28/17 documented as of this encounter
--- OUTSIDE RECORDS SUMMARY | 2025-08-20 15:38 | XMS_ITS | Encounter Summary ---
Author Organization [facility] Address [address] [place] [phone] Phone Care Team Providers Care Final Inspector And Tester Name Role Phone Lexa Wheeler MD Primary Care Provider Unavailabl e Encounter Details Date Type Department Care Team (Late st Contact Info) Description 05/04/2017 Conversion Encounter [facility] - [address] [address] Social History Tobacco Use Types Packs/Day Years [...] on filedocumented in this encounter Care Teams Final Inspector And Tester Relationship Specialty Start Date End Date Lexa Wheeler MD PCP - General 04/28/17 documented as of this encounter
--- OUTSIDE RECORDS SUMMARY | 2025-08-20 15:38 | XMS_ITS | Encounter Summary ---
Author Organization [facility] Address [address] [place], [place] [id number] Phone Care Team Providers Care Housekeeper Name Role Phone Lexa Wheeler MD Primary Care Provider Unavailabl e Encounter Details Date Type Department Care Team (Late st Contact Info) Description 05/22/2014 Documentation [facility] [place] Family Medicine [address] [place] [address] Family Medicine, Physician [address] [place], [place] [address] Social History Tobacco Use Types Packs/Day Years [...] on filedocumented in this encounter Care Teams Housekeeper Relationship Specialty Start Date End Date Lexa Wheeler MD PCP - General 04/28/17 documented as of this encounter
--- OUTSIDE RECORDS SUMMARY | 2025-08-20 15:38 | XMS_ITS | Patient Health Record ---
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 Problem Nausea and vomiting (10052676) Nausea and vomiting, unspecified vomiting type (R11.2) Active confirmed Encounters Encounter Location Date Provider Diagnosis [facility] [address] [place] [address] 10/08/2024 Shreyas Mike Jr Plan Of Treatment Future Test Test Name Order Date UPPER GI ENDOSCOPY 11/15/2023 COLONOSCOPY 11/15/2023 Insurance Providers Payer Name Payer Address Payer Phone Subscriber Number Group Number Insured Name Patient Relationship to Insured Coverage Start Date Coverage End Date [facility] [employer] [facility] [address] [address] [place], [place] [id number] MANZANARESRAMA ALVARENGA Self - patient is the insured Medical (General) History Medical History History ICD Code Indeterminate colitis, diagn osed at age 18 2013, previous treatment mesalamine, steroids, and Humira, patient stopped Humira on his own. Colonoscopy,2021 [place], normal per patient report. Surgical History Surgery Date(Month/Year) Hospitalization History Reason Date(Month/Year) 2 hospitalizations, 10/11 epi ploic appendagitis/proctalgia [place] , 11/11 viral influenza with sepsis 2023
--- OUTSIDE RECORDS SUMMARY | 2025-08-20 15:38 | XMS_ITS | Encounter Summary ---
Author Organization [facility] Address [address] [place], [place] [phone] Phone Care Team Providers Care Casino Surveillance Officer Name Role Phone Lexa Wheeler MD Primary Care Provider Unavailabl e Encounter Details Date Type Department Care Team (Late st Contact Info) Description 03/11/2014 Documentation [facility] [place] [place] Family Medicine [address] [place] [address] Family Medicine, Physician [address] [place], [place] [address] Social History Tobacco Use Types Packs/Day Years [...] on filedocumented in this encounter Care Teams Casino Surveillance Officer Relationship Specialty Start Date End Date Lexa Wheeler MD PCP - General 04/28/17 documented as of this encounter
--- OUTSIDE RECORDS SUMMARY | 2025-08-20 15:38 | XMS_ITS | Encounter Summary ---
Author Organization [facility] Address [address] [place], [place] [phone] Phone Care Team Providers Care Chronometer Repairer Name Role Phone Lexa Wheeler MD Primary Care Provider Unavailabl e Encounter Details Date Type Department Care Team (Late st Contact Info) Description 05/13/2014 Documentation [facility] [place] Family Medicine [address] [place] [address] Family Medicine, Physician [address] [place], [place] [address] Social History Tobacco Use Types Packs/Day Years [...] on filedocumented in this encounter Care Teams Chronometer Repairer Relationship Specialty Start Date End Date Lexa Wheeler MD PCP - General 04/28/17 documented as of this encounter
--- OUTSIDE RECORDS SUMMARY | 2025-08-20 15:38 | XMS_ITS | Clinical Summary ---
Author Organization [facility] Address [address] [place] [phone] Phone Care Team Providers Care Barrel Endshake Adjuster Name Role Phone Lexa Wheeler MD [...] patient's age to complete this topic Insurance [facility] Care Teams Barrel Endshake Adjuster Relationship Specialty Start Date End Date Lexa Wheeler MD PCP - General 04/28/17
--- OUTSIDE RECORDS SUMMARY | 2025-08-20 15:38 | XMS_ITS | Encounter Summary ---
Author Organization [facility] Address [address] [place], [place] [phone] Phone Care Team Providers Care Aircraft Inspection Record Clerk Name Role Phone Lexa Wheeler MD Primary Care Provider Unavailabl e Encounter Details Date Type Department Care Team (Late st Contact Info) Description 12/15/2015 Documentation [facility] [place] [facility] [place] [address] [place] [address] Family Medicine, Physician [address], [place] [address] Social History Tobacco Use Types Packs/Day Years [...] on filedocumented in this encounter Care Teams Aircraft Inspection Record Clerk Relationship Specialty Start Date End Date Lexa Wheeler MD PCP - General 04/28/17 documented as of this encounter
--- OUTSIDE RECORDS SUMMARY | 2025-08-20 15:38 | XMS_ITS | Encounter Summary ---
Author Organization [facility] Address [address] [place], [place] [phone] Phone Care Team Providers Care Sales Service Rep Name Role Phone Lexa Wheeler MD Primary Care Provider Unavailabl e Encounter Details Date Type Department Care Team (Late st Contact Info) Description 01/06/2017 Documentation [facility] [place] Family Medicine [address] [place] [address] Family Medicine, Physician [address] [place] [address] Social History Tobacco Use Types Packs/Day Years [...] on filedocumented in this encounter Care Teams Sales Service Rep Relationship Specialty Start Date End Date Lexa Wheeler MD PCP - General 04/28/17 documented as of this encounter
== END 2025-08-20 14:25 | disposition home or self-care (01) ==
LOC: HO.HOS 13:10
PROVIDERS: PCP Nurse Practitioner Family; Visit Provider Physician Assistant
DX: S43.005A Unspecified dislocation of left shoulder joint, initial encounter (principal)
CPT/HCPCS: 99213

== ENCOUNTER → 2025-08-20 13:09 | Outpatient (BNVA) | payer OTHER, SELFPAY | PROVIDERS: PCP Nurse Practitioner Family; Visit Provider Physician Assistant | DX: S43.005A Unspecified dislocation of left shoulder joint, initial encounter (principal); X50.0XXA Overexertion from strenuous movement or load, initial encounter; Y92.9 Unspecified place or not applicable; Y93.89 Activity, other specified; Y99.9 Unspecified external cause status | CPT/HCPCS: 99212 ==